=== PATIENT | female | born 1965 | race Native Hawaiian/Other Pacific Islander ===

== ENCOUNTER → 2017-03-30 | Outpatient (CLI) | payer OTHER ==
--- NOTE | 2017-04-03 10:22 | MM ---
Reason for exam: screening (asymptomatic). Physical Findings: A clinical breast exam by your physician is recommended on an annual basis and results should be correlated with mammographic findings. MG Screening Mammo w CAD Bilateral CC and MLO view(s) were taken. No prior studies available for comparison. The breast tissue is heterogeneously dense. This may lower the sensitivity of mammography. Finding: There are indeterminate calcifications in the upper quadrant, central position of the right breast. ASSESSMENT: Incomplete: need additional imaging evaluation, BI-RAD 0 RECOMMENDATION: Special view mammogram of the right breast. [facility] will attempt to contact patient to return for supplemental views.
== END ==
LOC: RADMAMWWP 15:18
PROVIDERS: ATTEND Internal Medicine
DX: Z12.31 Encounter for screening mammogram for malignant neoplasm of breast (principal)

== ENCOUNTER → 2017-04-07 | Outpatient (CLI) | payer OTHER ==
--- NOTE | 2017-04-07 10:35 | MM ---
Reason for exam: additional evaluation requested from abnormal screening. Last mammogram was performed less than 1 month ago. Physical Findings: Nurse did not find any significant physical abnormalities on exam. MG Work Up Mamm w CAD RT CC and MLO view(s) were taken of the right breast. Prior study comparison: March 30, 2017, bilateral MG screening mammo w CAD. Finding: There are typically benign round and heterogeneous, grouped/clustered calcifications in the upper quadrant, middle position of the right breast. These results were verbally communicated with the patient and result sheet given to the patient on 04/07/17. ASSESSMENT: Probably benign, BI-RAD 3 RECOMMENDATION: Follow-up diagnostic mammogram of the right breast in 6 months.
== END | disposition home or self-care (01) ==
LOC: RADMAMWWP 09:44
PROVIDERS: ATTEND Internal Medicine
DX: R92.8 Other abnormal and inconclusive findings on diagnostic imaging of breast (principal); R92.2 Inconclusive mammogram

== ENCOUNTER → 2019-05-28 | Outpatient (CLI) | payer OTHER ==
--- NOTE | 2019-05-28 08:57 | US ---
EXAMINATION TYPE: US pelvis complete transvag DATE OF EXAM: 05/28/2019 COMPARISON: NONE CLINICAL HISTORY: R10.2 PELVIC PAIN. Spotting Partial hysterectomy. TECHNIQUE: Transvaginal (TV) and Transabdominal (TA) . Transabdominal sonographic images of the pel vis were acquired. Transvaginal sonographic images were medically necessary to better assess the fol lowing anatomy: Ovaries EXAM MEASUREMENTS: Uterus: Surgically absent cm Endometrial Stripe: Surgically absent cm 1. Uterus: Surgically absent 2. Endometrium: Surgically absent 3. Right Ovary: Obscured by overlying bowel gas 4. Left Ovary: Obscured by overlying bowel gas 5. Bilateral Adnexa: wnl 6. Posterior cul-de-sac: wnl IMPRESSION: Uterus appears surgically absent with bowel now located in the surgical uterine bed. Ovar ies are obscured by bowel.
== END | disposition home or self-care (01) ==
LOC: RADUSWWP 07:03 → MERGE 07:03
PROVIDERS: ATTEND Obstetrics & Gynecology
DX: R14.3 Flatulence (principal); Z90.710 Acquired absence of both cervix and uterus
CPT/HCPCS: 76830; 76856

== ENCOUNTER 2019-06-10 13:01 | Emergency (ER) | payer OTHER ==
[2019-06-10 13:42] VITALS: TEMP 97.4
[2019-06-10] MEDS ORDERED: SODIUM CHLORIDE 0.9% 1,000 ML IV STA (15:55)
[2019-06-10] MEDS ORDERED: ONDANSETRON 4 MG/2 ML VIAL IVP STA (15:55)
[2019-06-10 16:32] LABS: Basophils % (A) 0 %; Eosinophils # (A) 0.1 k/uL (0-0.7); Eosinophils % (A) 2 %; HCT 42.6 % (34.0-46.0); HGB 13.6 gm/dL (11.4-16.0); Lymphocytes # (A) 1.8 k/uL (1.0-4.8); Lymphocytes % (A) 25 %; MCH 27.4 pg (25.0-35.0); MCV 85.6 fL (80.0-100.0); Mean Platelet Volume 7.5; Monocytes # (A) 0.5 k/uL (0-1.0); Monocytes % (A) 7 %; Neutrophils # (A) 4.5 k/uL (1.3-7.7); Neutrophils % (A) 64 %; Platelet Count 293 k/uL (150-450); RBC 4.97 m/uL (3.80-5.40); RDW 13.7 % (11.5-15.5)
[2019-06-10 16:36] LABS: Appearance,Urine Clear (Clear); Bilirubin,Urine Negative (Negative); Blood,Urine Negative (Negative); Color,Urine Yellow; Glucose,Urine (UA) Negative (Negative); Ketones,Urine 1+ (Negative); Leukocyte Esterase,Urine Negative (Negative); Nitrite,Urine Negative (Negative); PH, Urine 5.5 (5.0-8.0); Protein,Urine Trace (Negative); Specific Gravity,Urine 1.022 (1.001-1.035); Urobilinogen,Urine <2.0 mg/dL (<2.0)
--- NOTE | 2019-06-10 16:42 | XR ---
EXAMINATION TYPE: XR chest 2V DATE OF EXAM: 06/10/2019 COMPARISON: 09/04/2018 HISTORY: Chest pain TECHNIQUE: Frontal and lateral views of the chest are obtained. FINDINGS: Heart is normal. Lungs are clear of infiltrate. There is no pleural effusion. There are no hilar masses. Bony thorax is intact. IMPRESSION: No active cardiopulmonary disease. There is improved inspiration compared to last exam.
--- NOTE | 2019-06-10 16:43 | XR ---
EXAMINATION TYPE: XR KUB DATE OF EXAM: 06/10/2019 COMPARISON: NONE HISTORY: Abdominal pain TECHNIQUE: 2 views upright FINDINGS: There is no sign of intestinal obstruction or pneumoperitoneum. Fecal pattern is normal. Teresa ng bases are clear. There are no pathologic calcifications over the kidneys. IMPRESSION: Nonacute abdomen.
[2019-06-10 16:45] LABS: ALT 37 U/L (9-52); AST 25 U/L (14-36); African American GFR (CKD) >90 (>60 ml/min/1.73 sqM); Albumin 4.3 g/dL (3.5-5.0); Alkaline Phosphatase 109 U/L (38-126); Amylase 39 U/L (30-110); Anion Gap 11 mmol/L; Blood Urea Nitrogen 11 mg/dL (7-17); Calcium 9.6 mg/dL (8.4-10.2); Carbon Dioxide 24 mmol/L (22-30); Chloride 104 mmol/L (98-107); Glucose 88 mg/dL (74-99); Potassium 3.9 mmol/L (3.5-5.1); Sodium 139 mmol/L (137-145); Total Bilirubin 0.6 mg/dL (0.2-1.3); Total Protein 7.4 g/dL (6.3-8.2)
--- NOTE | 2019-06-10 17:11 | ED ---
Chest Pain HPI - General Chief Complaint: Chest Pain Stated Complaint: bug bites Time Seen by Provider: 06/10/19 15:23 Source: patient Mode of arrival: ambulatory Limitations: no limitations - History of Present Illness Initial Comments: Patient is a 53-year-old female presenting to emergency Department with multiple chief complaints. Patient reports approximately 1 week ago she developed a sore throat that has not resolved. Patient denies drooling but does report odontophagia. Patient reports angioedema that is worse in the morning . Patient also reports a macular rash on her left upper extremity and trunk that has appeared over the same period. Patient reports the rash is itchy. Patient denied any chest pain when arriving to the emergency department but states that she has developed mild chest pain when talking to the nurse. Patient denies any chest pain at the moment. Patient denies shortness of breath, chest tightness or chest palpitations. Patient is also complaining of generalized suprapubic tenderness that has developed over the same period. Patient denies hematuria or urgency but does report increased frequency. Patient also reports obstructive urinary symptoms. Patient also reports bilateral flank pain. Patient denies vaginal bleeding or discharge. Patient does report diarrhea. Patient also reports bilateral lower extremity edema over the past 2 weeks. Patient also reports bilateral lower extremity numbness and pain. Patient reports a history of diabetes as well as family history of diabetes. Patient is not currently treated for diabetes. Patient denies any cough or headaches. - Related Data Previous Rx's Medication Instructions Recorded Furosemide [Lasix] 20 mg PO DAILY #3 tab 06/10/19 Allergies Allergy/AdvReac Type Severity Reaction Status Date / Time hydromorphone Allergy Rash/Hives Verified 06/10/19 16:15 NSAIDS (Non-Steroidal Allergy Rash/Hives Verified 06/10/19 16:15 Anti-Inflamma Penicillins Allergy Unknown Verified 06/10/19 16:15 Review of Systems ROS Statement: Those systems with pertinent positive or pertinent negative responses have been documented in the HPI. ROS Other: All systems not noted in ROS Statement are negative. EKG Findings - EKG Comments: EKG Findings:: Normal sinus rhythm. Ventricular rate 76, W[place] interval 170, QRS duration 88, QT/QTc 408/459, P-R-T interval 38 51 65 Past Medical History Past Medical History: Asthma Additional Past Medical History / Comment(s): hernia, prolapsed uterus, kidney stones History of Any Multi-Drug Resistant Organisms: None Reported Past Surgical History: Cholecystectomy Additional Past Surgical History / Comment(s): kidney stone removal Past Anesthesia/Blood Transfusion Reactions: Motion Sickness, Postoperative Nausea & Vomiting (PONV) Past Psychological History: No Psychological Hx Reported Smoking Status: Never smoker Past Alcohol Use History: None Reported Past Drug Use History: None Reported - Past Family History Mother Family Medical History: Asthma, Diabetes Mellitus Father Family Medical History: No Reported History, Unable to Obtain General Exam Limitations: no limitations General appearance: alert, in no apparent distress Head exam: Present: atraumatic, normocephalic, normal inspection Eye exam: Present: normal appearance, PERRL, EOMI. Absent: conjunctival injection, periorbital tenderness Pupils: Present: normal accommodation ENT exam: Present: normal exam, normal oropharynx (Uvula midline. No erythema enlarged tonsils or exudates .), mucous membranes moist, TM's normal bilaterally, normal external ear exam Neck exam: Present: normal inspection, full ROM, lymphadenopathy (submandibular) Respiratory exam: Present: normal lung sounds bilaterally. Absent: wheezes Cardiovascular Exam: Present: regular rate, normal rhythm, normal heart sounds GI/Abdominal exam: Present: soft, tenderness (Generalized suprapubic tenderness with palpation), normal bowel sounds, other (Negative McBurney point tenderness, negative Coombs's, negative obturator, negative Rovsing.). Absent: guarding, rebound Extremities exam: Present: normal inspection, full ROM, normal capillary refill, pedal edema (+1 bilateral nonpitting lower extremity edema. ), other ( +2 dorsalis pedis and posterior tibialis bilaterally) Back exam: Present: normal inspection, full ROM Neurological exam: Present: alert, oriented X3 Psychiatric exam: Present: normal affect, normal mood Skin exam: Present: warm, intact, normal color, rash (Macular rash measuring approximately 2 cm diameter on left upper extremity and trunk.) Course Vital Signs 06/10/19 06/10/19 13:36 18:57 Temperature 97.4 F L Pulse Rate 90 88 Respiratory 18 15 Rate Blood Pressure 132/91 136/90 O2 Sat by Pulse 97 98 Oximetry Chest Pain [facility] Patient is a 53-year-old female presenting to emergency Department with multiple chief complaints. Chest x-ray unremarkable. CT abdomen and pelvis is indicative of cardiomegaly. Patient does not take any medication for the cardiac megaly. I suspect the patient to have developed the bilateral lower extremity edema due to the cardiomegaly. Patient given 40 mg of Lasix and will be discharged with a three-day course of Lasix. I suspect the bilateral lower cavity pain and numbness is due to diabetic neuropathy secondary to a nontreated diabetes. CBC, CMP and UA are unremarkable. I suspect the sore throat to be caused by a viral etiology and do not see a need for use of antibiotics at this time. On reevaluation patient denies any chest pain or shortness of breath. EKG shows sinus rhythm. The urine is completely clean. Urinary tract infections typically doesn't present with bilateral flank pain. Patient was also recently treated for a UTI so at this time not going to prescribe an antibiotic. I suspect the rash to be caused by a localized ALLERGIC reaction And will be treated with a steroid. I also suspect the angioedema to be a result of an ALLERGIC reaction which is going to be covered with the steroid. Patient advised to follow-up with cardiology and urology regarding her symptoms. Patient denied pelvic examination. Patient's vital stable. Strict return parameters were thoroughly discussed patient was understanding and agreeable. Case discussed physician. Disposition Clinical Impression: Rash, Suprapubic pain, Angioedema Disposition: HOME SELF-CARE Condition: Stable Instructions (If sedation given, give patient instructions): Abdominal Pain (ED) Additional Instructions: Please follow up with cardiology and urology. Please follow up with primary care. Please return to emergency department if symptoms worsen. Please see prescribe medication as directed. Prescriptions: Furosemide [Lasix] 20 mg PO DAILY #3 tab Is patient prescribed a controlled substance at d/c from ED?: No Referrals: Amanda Montero MD [STAFF PHYSICIAN] - 1-2 days Marzena Mclaughlin MD [Primary Care Provider] - 1-2 days Ceasr Salvador MD [STAFF PHYSICIAN] - 1-2 days Time of Disposition: 18:51
[2019-06-10] MEDS ORDERED: DEXAMETHASONE SOD PHOSPHATE 10 MG/ML 1 ML VIAL IM STA (17:55)
[2019-06-10] MEDS ORDERED: DEXAMETHASONE SOD PHOSPHATE 10 MG/ML 1 ML VIAL IV STA (18:04)
--- NOTE | 2019-06-10 18:39 | CT ---
EXAMINATION TYPE: CT abdomen pelvis w con DATE OF EXAM: 06/10/2019 COMPARISON: 01/19/2013 HISTORY: Pelvic and Left sided flank pain CT DLP: 1418.3 mGycm Automated exposure control for dose reduction was used. TECHNIQUE: Helical acquisition of images was performed from the lung bases through the pelvis. CONTRAST: Performed without Oral Contrast and with IV Contrast, patient injected with 100 mL of Isovue 300. FINDINGS: Lung bases are clear. There is no pleural effusion. Heart is enlarged. There is no pericardial effusi on. There are clips from cholecystectomy. Liver appears normal. Bile ducts are not dilated. Spleen ap pears normal. There is no pancreatic mass. Stomach appears normal. There is no adrenal mass. Kidneys show satisfactory contrast opacification. There is no hydronephrosi s. Ureters are not dilated. Appendix appears normal. There is no retroperitoneal adenopathy. Bladder distends smoothly. There is no inguinal hernia. There is no evidence of a pelvic mass. There is no free fluid in the pel vis. There is hysterectomy. There is no mesenteric edema. There is no ascites or free air. Lumbar spi ne is intact. Bony pelvis appears intact. IMPRESSION: CARDIOMEGALY. NO RENAL MASS OR OBSTRUCTION. THERE IS CLEARING OF CALCULUS IN THE LEFT RENAL PELVIS CO MPARED TO OLD EXAM. NORMAL APPENDIX. I do not see a cause for left side pain.
[2019-06-10] MEDS ORDERED: FUROSEMIDE 10 MG/ML 4 ML VIAL IV STA (18:48)
[2019-06-10 19:02] VITALS: BP 136/90; PULSE 88; RESP 15
== END 2019-06-10 18:57 | disposition home or self-care (01) ==
LOC: EC 13:01
DX: T78.3XXA Angioneurotic edema, initial encounter (principal); R10.31 Right lower quadrant pain; R10.32 Left lower quadrant pain; R19.7 Diarrhea, unspecified; J02.9 Acute pharyngitis, unspecified; Z90.49 Acquired absence of other specified parts of digestive tract; Z87.442 Personal history of urinary calculi; Z53.8 Procedure and treatment not carried out for other reasons; Z88.5 Allergy status to narcotic agent; Z88.6 Allergy status to analgesic agent; Z88.0 Allergy status to penicillin
CPT/HCPCS: 36415; 93005; 80053; 82150; 83690; 85025; 81003; 81025; 87086; 71046; 74018; 74177; 99285; 96374; 96375 ×2; 96361 ×2; J1100; J1940; J2405; Q9967

== ENCOUNTER 2019-06-12 13:36 | Emergency (ER) | payer OTHER ==
[2019-06-12 13:41] VITALS: BP 120/86; PULSE 83; RESP 18; TEMP 97.9
[2019-06-12] MEDS ORDERED: methylPREDNISolone SOD SUCCI 125 MG/2 ML VIAL IV STA (14:08)
[2019-06-12] MEDS ORDERED: diphenhydrAMINE 50 MG/ML 1 ML VIAL IVP STA (14:08)
[2019-06-12] MEDS ORDERED: FAMOTIDINE 20 MG/2 ML VIAL IV STA (14:08)
--- NOTE | 2019-06-12 14:27 | ED ---
Allergic Reaction HPI - General Chief complaint: Allergic Reaction Stated complaint: allergic reaction Time Seen by Provider: 06/12/19 13:50 Source: patient, RN notes reviewed Mode of arrival: ambulatory Limitations: no limitations - History of Present Illness Initial Comments: 53-year-old female presents emergency Department chief complaint of hives. Patient states that she was here the other day which she'll blood work for was not sent home with any medications. Patient states her. She states that they have worsened. Patient states she is large areas of swelling primary torso and legs. Patient denies taking any recent Benadryl patient has ALLERGY to drugs but denies any new medications soaps lotions detergents. She believes are related to insect bites at her apartment. - Related Data Previous Rx's Medication Instructions Recorded Cephalexin [Keflex] 500 mg PO Q6HR #28 cap 06/12/19 diphenhydrAMINE [Benadryl] 50 mg PO QID PRN #20 capsule 06/12/19 predniSONE 50 mg PO DAILY #5 tab 06/12/19 Allergies Allergy/AdvReac Type Severity Reaction Status Date / Time hydromorphone Allergy Rash/Hives Verified 06/12/19 13:53 NSAIDS (Non-Steroidal Allergy Rash/Hives Verified 06/12/19 13:53 Anti-Inflamma Penicillins Allergy Unknown Verified 06/12/19 13:53 Review of Systems ROS Statement: Those systems with pertinent positive or pertinent negative responses have been documented in the HPI. ROS Other: All systems not noted in ROS Statement are negative. Past Medical History Past Medical History: Asthma Additional Past Medical History / Comment(s): hernia, prolapsed uterus, kidney stones History of Any Multi-Drug Resistant Organisms: None Reported Past Surgical History: Cholecystectomy Additional Past Surgical History / Comment(s): kidney stone removal Past Anesthesia/Blood Transfusion Reactions: Motion Sickness, Postoperative Nausea & Vomiting (PONV) Past Psychological History: No Psychological Hx Reported Smoking Status: Never smoker Past Alcohol Use History: None Reported Past Drug Use History: None Reported - Past Family History Mother Family Medical History: Asthma, Diabetes Mellitus Father Family Medical History: No Reported History, Unable to Obtain General Exam Limitations: no limitations General appearance: alert, in no apparent distress Head exam: Present: atraumatic, normocephalic, normal inspection Eye exam: Present: normal appearance, PERRL, EOMI. Absent: scleral icterus, conjunctival injection, periorbital swelling ENT exam: Present: normal exam, mucous membranes moist Neck exam: Present: normal inspection, full ROM. Absent: tenderness, meningismus, lymphadenopathy Respiratory exam: Present: normal lung sounds bilaterally. Absent: respiratory distress, wheezes, rales, rhonchi, stridor Cardiovascular Exam: Present: regular rate, normal rhythm, normal heart sounds. Absent: systolic murmur, diastolic murmur, rubs, gallop, clicks GI/Abdominal exam: Present: soft, normal bowel sounds. Absent: distended, tenderness, guarding, rebound, rigid Neurological exam: Present: alert, oriented X3, CN II-XII intact Skin exam: Present: warm, dry, intact, normal color, rash, urticaria Course Vital Signs 06/12/19 13:38 Temperature 97.9 F Pulse Rate 83 Respiratory 18 Rate Blood Pressure 120/86 O2 Sat by Pulse 96 Oximetry Medical Decision Making - Medical Decision Making 53-year-old female presented for rash. Patient is resting to be consistent with urticaria she did have improvement with Solu-Medrol and Benadryl. She also had an abscess infection which she'll be treated for antibiotics. Patient will be discharged prednisone and Benadryl and Keflex. Return parameters were discussed. Disposition Clinical Impression: Urticaria, Abscess of chin Disposition: HOME SELF-CARE Condition: Stable Instructions (If sedation given, give patient instructions): Urticaria (ED) Additional Instructions: Please return to the Emergency Department if symptoms worsen or any other concerns. Prescriptions: diphenhydrAMINE [Benadryl] 50 mg PO QID PRN #20 capsule PRN Reason: Itching Cephalexin [Keflex] 500 mg PO Q6HR #28 cap predniSONE 50 mg PO DAILY #5 tab Is patient prescribed a controlled substance at d/c from ED?: No Referrals: Marzena Mclaughlin MD [Primary Care Provider] - 1-2 days Time of Disposition: 15:16
== END 2019-06-12 15:46 | disposition home or self-care (01) ==
LOC: EC 13:36
DX: L50.9 Urticaria, unspecified (principal); L02.01 Cutaneous abscess of face; Z88.0 Allergy status to penicillin; Z88.5 Allergy status to narcotic agent; Z88.6 Allergy status to analgesic agent
CPT/HCPCS: 99283; 96374; 96375 ×2; J1200; J2930

== ENCOUNTER 2019-06-24 04:31 | Observation (INO) | payer OTHER ==
[2019-06-24] MEDS ORDERED: ONDANSETRON 4 MG/2 ML VIAL IVP STA (04:57)
[2019-06-24] MEDS ORDERED: SODIUM CHLORIDE 0.9% 2,000 ML IV STA (04:57)
--- NOTE | 2019-06-24 04:57 | ED ---
Nausea/Vomiting/Diarrhea HPI - General Chief complaint: Nausea/Vomiting/Diarrhea Stated complaint: abd pain Time Seen by Provider: 06/24/19 04:45 Source: patient Mode of arrival: ambulatory Limitations: no limitations - History of Present Illness Initial comments: Vandana is a 53-year-old female who presents to the emergency department today for evaluation of abdominal pain. Patient reports that until approximately 2 weeks ago she had been profoundly constipated and had only one bowel movement a matter of 2 weeks. She reports that that resolved and since that time she's experienced multiple episodes of nonbloody diarrhea, and nonbilious vomiting. She reports that for the past week to 10 days any time she eats she will need to have a bowel movement within 5-10 minutes. Patient reports that his bowel movements have become greenish in color. Patient states that yesterday at latter-day she ate rice and ribs and within 5 minutes had have a bowel movement. He states that with this she's been having some significant abdominal discomfort and cramping. She has been taking Tums with minimal relief, this evening she attempted to take Rolaids with no relief at which time she decided to come to the ER for further evaluation. Patient states that she has had multiple abdominal surgeries including umbilical hernia repair, open cholecystectomy, she denies any history of small bowel obstruction or any known surgical complications from her previous surgeries. - Related Data Previous Rx's Medication Instructions Recorded Cephalexin [Keflex] 500 mg PO Q6HR #28 cap 06/12/19 diphenhydrAMINE [Benadryl] 50 mg PO QID PRN #20 capsule 06/12/19 predniSONE 50 mg PO DAILY #5 tab 06/12/19 Allergies Allergy/AdvReac Type Severity Reaction Status Date / Time capsaicin [From Dolorac] Allergy Rapid Verified 06/24/19 04:41 Heart Rate hydromorphone Allergy Rash/Hives Verified 06/24/19 04:39 NSAIDS (Non-Steroidal Allergy Rash/Hives Verified 06/24/19 04:39 Anti-Inflamma Penicillins Allergy Unknown Verified 06/24/19 04:39 Review of Systems ROS Statement: Those systems with pertinent positive or pertinent negative responses have been documented in the HPI. ROS Other: All systems not noted in ROS Statement are negative. Past Medical History Past Medical History: Asthma Additional Past Medical History / Comment(s): hernia, prolapsed uterus, kidney stones History of Any Multi-Drug Resistant Organisms: None Reported Past Surgical History: Cholecystectomy Additional Past Surgical History / Comment(s): kidney stone removal Past Anesthesia/Blood Transfusion Reactions: Motion Sickness, Postoperative Nausea & Vomiting (PONV) Past Psychological History: No Psychological Hx Reported Smoking Status: Never smoker Past Alcohol Use History: None Reported Past Drug Use History: None Reported - Past Family History Mother Family Medical History: Asthma, Diabetes Mellitus Father Family Medical History: No Reported History, Unable to Obtain General Exam - General Exam Comments Initial Comments: Physical Exam GENERAL: Patient is well-developed and well-nourished. Patient is nontoxic and well- hydrated and is in no distress. HENT: Normocephalic, Atraumatic. EYES: PERRL, EOMI PULMONARY: Unlabored respirations. No audible rales rhonchi or wheezing was noted. CARDIOVASCULAR: There is a regular rate and rhythm without any murmurs gallops or rubs. ABDOMEN: Soft and nontender with normal bowel sounds. SKIN: Skin is clear with no lesions or rashes and otherwise unremarkable. : Deferred NEUROLOGIC: Patient is alert and oriented x3. Moving all extremities spontaneously MUSCULOSKELETAL: Normal extremities with adequate strength and full range of motion. No lower extremity swelling or edema. No calf tenderness. PSYCHIATRIC: Normal psychiatric evaluation. Limitations: no limitations Course Vital Signs 06/24/19 06/24/19 04:37 06:33 Temperature 97.8 F 97.9 F Pulse Rate 85 88 Respiratory 18 16 Rate Blood Pressure 133/89 131/79 O2 Sat by Pulse 98 99 Oximetry Medical Decision Making - Medical Decision Making The patient was seen and evaluated, history is obtained from the patient This is a previously healthy 53-year-old female presenting with these abdominal discomfort and diarrhea Labs ordered with mild leukocytosis X-ray is nonspecific however given the patient's symptoms and a computed tomography scan was ordered which revealed inflammation of the terminal ileum is as well as possible sigmoid colitis Rocephin and Flagyl ordered Due to the profuse diarrhea patient actually had an episode of bowel incontinence here in the emergency department. I'm patient comfortable being discharged home and will be admitted to the hospital for IV antibiotics fluid resuscitation and monitoring. - Lab Data Result diagrams: 06/24/19 05:11 06/24/19 05:11 Lab Results 06/24/19 06/24/19 06/24/19 Range/Units 05:11 05:11 05:20 WBC 10.8 H (3.8-10.6) k/uL RBC 4.95 (3.80-5.40) m/uL Hgb 14.0 (11.4-16.0) gm/dL Hct 42.8 (34.0-46.0) % MCV 86.4 (80.0-100.0) fL MCH 28.3 (25.0-35.0) pg MCHC 32.8 (31.0-37.0) g/dL RDW 16.6 H (11.5-15.5) % Plt Count 284 (150-450) k/uL Neutrophils % 68 % Lymphocytes % 23 % Monocytes % 5 % Eosinophils % 2 % Basophils % 1 % Neutrophils # 7.4 (1.3-7.7) k/uL Lymphocytes # 2.4 (1.0-4.8) k/uL Monocytes # 0.6 (0-1.0) k/uL Eosinophils # 0.2 (0-0.7) k/uL Basophils # 0.1 (0-0.2) k/uL Anisocytosis Slight Sodium 138 (137-145) mmol/L Potassium 3.7 (3.5-5.1) mmol/L Chloride 106 (98-107) mmol/L Carbon Dioxide 24 (22-30) mmol/L Anion Gap 8 mmol/L BUN 14 (7-17) mg/dL Creatinine 0.55 (0.52-1.04) mg/dL Est GFR (CKD-EPI)AfAm >90 (>60 ml/min/1.73 sqM) Est GFR (CKD-EPI)NonAf >90 (>60 ml/min/1.73 sqM) Glucose 113 H (74-99) mg/dL Calcium 9.0 (8.4-10.2) mg/dL Total Bilirubin 0.3 (0.2-1.3) mg/dL AST 23 (14-36) U/L ALT 33 (9-52) U/L Alkaline Phosphatase 94 (38-126) U/L Total Protein 6.9 (6.3-8.2) g/dL Albumin 4.0 (3.5-5.0) g/dL Lipase 112 (23-300) U/L Urine Color Light Yellow Urine Appearance Clear (Clear) Urine pH 6.0 (5.0-8.0) Ur Specific [place] 1.010 (1.001-1.035) Urine Protein Negative (Negative) Urine Glucose (UA) Negative (Negative) Urine Ketones Negative (Negative) Urine Blood Negative (Negative) Urine Nitrite Negative (Negative) Urine Bilirubin Negative (Negative) Urine Urobilinogen <2.0 (<2.0) mg/dL Ur Leukocyte Esterase Negative (Negative) Disposition Clinical Impression: Colitis Disposition: ADMITTED IP TO THIS HOSP Condition: Stable Referrals: Marzena Mclaughlin MD [Primary Care Provider] - 1-2 days
[2019-06-24 05:20] LABS: Anisocytosis Slight; Basophils # (A) 0.1 k/uL (0-0.2); Basophils % (A) 1 %; Eosinophils # (A) 0.2 k/uL (0-0.7); Eosinophils % (A) 2 %; HCT 42.8 % (34.0-46.0); Lymphocytes # (A) 2.4 k/uL (1.0-4.8); Lymphocytes % (A) 23 %; MCH 28.3 pg (25.0-35.0); MCHC 32.8 g/dL (31.0-37.0); MCV 86.4 fL (80.0-100.0); Mean Platelet Volume 7.4; Monocytes # (A) 0.6 k/uL (0-1.0); Monocytes % (A) 5 %; Neutrophils # (A) 7.4 k/uL (1.3-7.7); Neutrophils % (A) 68 %; Platelet Count 284 k/uL (150-450); RBC 4.95 m/uL (3.80-5.40); RDW 16.6 % (11.5-15.5); WBC 10.8 k/uL (3.8-10.6)
--- NOTE | 2019-06-24 05:38 | XR ---
EXAM: XR Abdomen, 1 View CLINICAL HISTORY: ITS.REASON XR Reason: pain TECHNIQUE: Frontal supine view of the abdomen/pelvis. COMPARISON: 06/10/19 IMPRESSION: No bowel obstruction. No free air. Cholecystectomy clips.
[2019-06-24 05:40] LABS: ALT 33 U/L (9-52); AST 23 U/L (14-36); African American GFR (CKD) >90 (>60 ml/min/1.73 sqM); Alkaline Phosphatase 94 U/L (38-126); Anion Gap 8 mmol/L; Blood Urea Nitrogen 14 mg/dL (7-17); Carbon Dioxide 24 mmol/L (22-30); Chloride 106 mmol/L (98-107); Glucose 113 mg/dL (74-99); Non-African American GFR(CKD) >90 (>60 ml/min/1.73 sqM); Potassium 3.7 mmol/L (3.5-5.1); Sodium 138 mmol/L (137-145); Total Bilirubin 0.3 mg/dL (0.2-1.3); Total Protein 6.9 g/dL (6.3-8.2)
[2019-06-24 06:04] LABS: Appearance,Urine Clear (Clear); Bilirubin,Urine Negative (Negative); Blood,Urine Negative (Negative); Color,Urine Light Yellow; Glucose,Urine (UA) Negative (Negative); Ketones,Urine Negative (Negative); Leukocyte Esterase,Urine Negative (Negative); Nitrite,Urine Negative (Negative); Protein,Urine Negative (Negative); Urobilinogen,Urine <2.0 mg/dL (<2.0)
--- NOTE | 2019-06-24 06:41 | CT ---
EXAMINATION TYPE: CT abdomen pelvis w con DATE OF EXAM: 06/24/2019 HISTORY: abd pain per order. Nausea and diarrhea with history of hernia. CT DLP: 1627mGycm Automated Exposure Control for Dose Reduction was Utilized. CONTRAST: CT scan of the abdomen and pelvis is performed without oral but with IV Contrast, patient injected wi th 100 mL of Isovue 300. COMPARISON: CT abdomen and pelvis from 2 weeks earlier. FINDINGS: LUNG BASES: Stable tiny pericardial effusion anterior inferior aspect. LIVER/GB: Cholecystectomy clips are redemonstrated. PANCREAS: No significant abnormality is seen. SPLEEN: No significant abnormality is seen. ADRENALS: No significant abnormality is seen. KIDNEYS: No significant abnormality is seen. BOWEL: Suboptimal evaluation of bowel without enteric contrast. No suspicious small or large bowel di latation. Mild wall thickening involving sigmoid colon is present. There is additional moderate wall thickening with mesenteric edema involving distal ileal loop in the right pelvis on current study. UTERUS/ADNEXA: Uterus is small size and lobulated axial image 81 unchanged in appearance from prior. LYMPH NODES: No greater than 1cm abdominal or pelvic lymph nodes are appreciated. OSSEOUS STRUCTURES: No significant abnormality is seen. OTHER: No significant additional abnormality is seen. IMPRESSION: Suboptimal study but convincing evidence for new uncomplicated acute enteritis involving distal ileal loop in the right pelvis. Cannot exclude additional mild colitis involving portions of t he sigmoid colon. Differential includes infectious and inflammatory etiologies. Correlate clinically.
[2019-06-24] MEDS ORDERED: NALOXONE 0.4 MG/ML 1 ML VIAL IV PRN (07:33)
[2019-06-24] MEDS ORDERED: metroNIDAZOLE-NS PMX 500 MG in SALINE 1 100ML.BAG IVPB STA (07:33)
[2019-06-24] MEDS ORDERED: cefTRIAXone IN SWFI 1,000 MG/10 ML SYRINGE IVP STA (07:33)
[2019-06-24] MEDS ORDERED: ONDANSETRON 4 MG/2 ML VIAL IVP PRN (07:33)
[2019-06-24] MEDS: SODIUM CHLORIDE 0.9% 1,000 ML IV SCH ×2 (07:59→08:57)
[2019-06-24] MEDS ORDERED: PNEUMOCOCCAL VACC-PNEUMOVAX 23 25 MCG/0.5 ML VIAL IM ONE (10:24)
[2019-06-24] MEDS ORDERED: ALPRAZolam 0.25 MG TAB PO PRN (13:05)
[2019-06-24] MEDS: PANTOPRAZOLE 40 MG/10 ML VIAL IVP SCH ×2 (13:33→20:01)
[2019-06-24] MEDS: HEPARIN SODIUM,PORCINE 5,000 UNIT/ML 1 ML VIAL SQ SCH ×2 (13:36→20:01)
[2019-06-24] MEDS ORDERED: LEVOFLOXACIN 500MG-D5W PMX 500 MG in DEXTROSE/WATER 1 100ML.BAG IVPB SCH (14:00)
--- NOTE | 2019-06-24 14:01 | HP ---
HISTORY AND PHYSICAL DATE OF SERVICE: 06/24/2019 CHIEF COMPLAINT: Nausea, vomiting, diarrhea. HISTORY OF PRESENT ILLNESS: This is a 53-year-old woman with a past medical history of multiple medical problems, including asthma, history of bronchitis, history of nephrolithiasis, history of DJD, cholecystomy being followed by Dr. Marzena Mclaughlin in the outpatient setting, is complaining of initially constipation, subsequently patient had multiple episodes of diarrhea for the last 2 weeks. The patient apparently had a spider bite also a week ago on the left flank, which is healing at this time. Because of increased difficulty, this patient came to [facility], admitted for further evaluation and treatment. The patient has abdominal distention also. The patient had heightened gastrocolic reflex as well. The CT scan showed enteritis, patient improved. There is no history of recent travel, no history of headache, loss of consciousness, seizures at this time. PAST MEDICAL HISTORY: History of asthma, bronchitis, nephrolithiasis, cholecystectomy, tubal ligation, motion sickness. MEDICATIONS: Prior to admission include home medications are multivitamins. ALLERGIES: CAPSAICIN, HYDROMORPHONE, NSAIDS, PENICILLIN. FAMILY HISTORY: History of asthma, diabetes in the family. SOCIAL HISTORY: No history of smoking. No history of alcohol intake. REVIEW OF SYSTEMS: ENT: No diminished vision. CARDIOVASCULAR: No angina or palpitations. RESPIRATORY: As mentioned earlier. GI: As mentioned earlier. : Negative. NERVOUS SYSTEM: No numbness or weakness. IMMUNOLOGY/ALLERGY: No asthma or hayfever. MUSCULOSKELETAL: As mentioned earlier. HEMATOLOGY/ONCOLOGY: No history of anemia. ENDOCRINE: No history of diabetes or hypothyroidism. CONSTITUTIONAL: As mentioned earlier. DERMATOLOGY: Negative. PSYCHIATRY: As mentioned earlier. PHYSICAL EXAMINATION: Alert and oriented x3, pulse is 82, blood pressure 130/80, respiration 17, temperature 98.2, pulse ox 98% on room air. HEENT: Conjunctivae normal. NECK: No jugular venous distension. CARDIOVASCULAR: S1, S2, muffled. RESPIRATORY: Breath sounds diminished at the bases, a few rhonchi, no crackles. ABDOMEN: Soft. Mild diffuse distention. Mild diffuse discomfort on palpation. No guarding. No rigidity. No mass palpable. LEGS: No edema, no swelling. NERVOUS SYSTEM: Higher functions as munitioned earlier, moves all 4 limbs. No focal motor or sensory deficits. LYMPHATICS: No lymph node enlargement. SKIN: No ulcers, rashes, bleeding. JOINTS: No active deforming arthropathy. LAB STUDIES: WBC 10.2, hemoglobin 14, sodium 130, potassium 3.7. ASSESSMENT: 1. Abdominal pain and distention with diarrhea, possibly acute enteritis of unknown undetermined etiology. 2. Increased WBC. 3. History of asthma, bronchitis. 4. History of nephrolithiasis. 5. History of degenerative joint disease. 6. Cholecystectomy history. RECOMMENDATION AND DISCUSSION: In this 53-year-old woman who presented with multiple complex medical issues, will monitor the patient closely. Continue with the current management and symptomatic treatment. Otherwise, at this time I would recommend symptomatic treatment, stool testing, cultures or parasite treated empirically with antibiotics. Clear liquids. Guarded prognosis because of multiple complex medical issues. Further recommendations to follow. A copy of this will be forwarded to Dr. Marzena Mclaughlin who is the primary physician. MMODL / IJN: [id number] /
[2019-06-24] MEDS: metroNIDAZOLE-NS PMX 500 MG in SALINE 1 100ML.BAG IVPB SCH (15:13)
[2019-06-24] MEDS: ACETAMINOPHEN TAB 500 MG TAB PO PRN ×2 (15:16→19:53)
[2019-06-25] MEDS: SODIUM CHLORIDE 0.9% 1,000 ML IV SCH ×3 (00:07→23:28)
[2019-06-25] MEDS: metroNIDAZOLE-NS PMX 500 MG in SALINE 1 100ML.BAG IVPB SCH ×4 (01:34→23:28)
[2019-06-25] MEDS: PANTOPRAZOLE 40 MG/10 ML VIAL IVP SCH ×2 (08:02→21:07)
[2019-06-25] MEDS: MULTIVITAMINS, THERA 1 EACH TAB PO SCH (08:02)
[2019-06-25] MEDS: HEPARIN SODIUM,PORCINE 5,000 UNIT/ML 1 ML VIAL SQ SCH ×2 (08:02→21:07)
[2019-06-25 08:11] LABS: Basophils % (A) 0 %; Eosinophils # (A) 0.2 k/uL (0-0.7); Eosinophils % (A) 2 %; HCT 45.7 % (34.0-46.0); HGB 14.5 gm/dL (11.4-16.0); Lymphocytes # (A) 1.7 k/uL (1.0-4.8); Lymphocytes % (A) 24 %; MCH 27.8 pg (25.0-35.0); MCHC 31.8 g/dL (31.0-37.0); MCV 87.2 fL (80.0-100.0); Mean Platelet Volume 7.4; Monocytes # (A) 0.5 k/uL (0-1.0); Monocytes % (A) 7 %; Neutrophils # (A) 4.7 k/uL (1.3-7.7); Neutrophils % (A) 65 %; Platelet Count 301 k/uL (150-450); RBC 5.24 m/uL (3.80-5.40); WBC 7.1 k/uL (3.8-10.6)
[2019-06-25] MEDS: ACETAMINOPHEN TAB 500 MG TAB PO PRN ×2 (08:11→16:41)
[2019-06-25 08:22] LABS: African American GFR (CKD) >90 (>60 ml/min/1.73 sqM); Anion Gap 7 mmol/L; Blood Urea Nitrogen 7 mg/dL (7-17); Calcium 9.5 mg/dL (8.4-10.2); Carbon Dioxide 31 mmol/L (22-30); Chloride 105 mmol/L (98-107); Glucose 112 mg/dL (74-99); Non-African American GFR(CKD) >90 (>60 ml/min/1.73 sqM); Potassium 4.3 mmol/L (3.5-5.1); Sodium 143 mmol/L (137-145)
[2019-06-25] MEDS: LEVOFLOXACIN 250 MG TAB PO SCH (12:38)
--- NOTE | 2019-06-25 23:58 | PN ---
PROGRESS NOTE DATE OF SERVICE: 06/25/2019. This 53-year-old woman was admitted with abdominal pain, discomfort, possibly suspect enteritis. No chest pain. No palpitations. No fever. EXAM: Alert and oriented x3. Pulse is 95, blood pressure 127/80, respiration 18, temperature 98.4, pulse ox 98% on room air. HEENT: Conjunctivae normal. NECK: No jugular venous distention. CARDIOVASCULAR: S1, S2. RESPIRATORY: Breath sounds diminished in the bases. No rhonchi. No crackles. ABDOMEN is soft, nontender. No mass palpable. CENTRAL NERVOUS SYSTEM: No focal deficits. LEGS are no edema. No swelling. LABS: CBC within normal limits. Sodium 140, potassium 4.3. ASSESSMENT: 1. Abdominal pain/distention and diarrhea possibly acute enteritis, so far undetermined etiology. 2. Increased WBC. 3. History of asthma, bronchitis. 4. History of nephrolithiasis. 5. History of degenerative joint disease. 6. Cholecystectomy history. RECOMMENDATIONS AND DISCUSSION: Recommend to continue current medications, management and symptomatic treatment. Otherwise, at this time, I would also recommend Gastroenterology evaluation because of persistent symptoms. Prognosis guarded because of multiple complex medical issues. Further recommendations to follow. MMODL / IJN: [id number] /
[2019-06-26 08:17] LABS: Basophils % (A) 1 %; Eosinophils # (A) 0.2 k/uL (0-0.7); Eosinophils % (A) 3 %; HCT 41.7 % (34.0-46.0); HGB 13.5 gm/dL (11.4-16.0); Lymphocytes # (A) 0.9 k/uL (1.0-4.8); Lymphocytes % (A) 15 %; MCH 28.2 pg (25.0-35.0); MCHC 32.3 g/dL (31.0-37.0); MCV 87.2 fL (80.0-100.0); Mean Platelet Volume 7.3; Monocytes # (A) 0.3 k/uL (0-1.0); Monocytes % (A) 6 %; Neutrophils # (A) 4.4 k/uL (1.3-7.7); Neutrophils % (A) 75 %; Platelet Count 275 k/uL (150-450); RBC 4.78 m/uL (3.80-5.40); WBC 5.9 k/uL (3.8-10.6)
[2019-06-26 08:25] LABS: African American GFR (CKD) >90 (>60 ml/min/1.73 sqM); Anion Gap 7 mmol/L; Blood Urea Nitrogen 9 mg/dL (7-17); Calcium 9.5 mg/dL (8.4-10.2); Carbon Dioxide 29 mmol/L (22-30); Chloride 103 mmol/L (98-107); Glucose 111 mg/dL (74-99); Non-African American GFR(CKD) 89 (>60 ml/min/1.73 sqM); Potassium 4.3 mmol/L (3.5-5.1); Sodium 139 mmol/L (137-145)
[2019-06-26] MEDS: metroNIDAZOLE-NS PMX 500 MG in SALINE 1 100ML.BAG IVPB SCH ×2 (08:29→15:01)
[2019-06-26] MEDS: HEPARIN SODIUM,PORCINE 5,000 UNIT/ML 1 ML VIAL SQ SCH ×2 (09:07→20:19)
[2019-06-26] MEDS: MULTIVITAMINS, THERA 1 EACH TAB PO SCH (09:07)
[2019-06-26] MEDS: PANTOPRAZOLE 40 MG/10 ML VIAL IVP SCH ×2 (09:07→20:18)
[2019-06-26] MEDS ORDERED: BISACODYL 5 MG TABLET.DR PO STA (11:07)
[2019-06-26] MEDS: LEVOFLOXACIN 250 MG TAB PO SCH (12:22)
[2019-06-26] MEDS: SODIUM CHLORIDE 0.9% 1,000 ML IV SCH ×2 (12:58→13:02)
--- NOTE | 2019-06-26 16:28 | PN ---
PROGRESS NOTE DATE OF SERVICE: 06/26/2019 This 53-year-old woman who was admitted with abdominal symptoms had apparently diarrhea and constipation, also. Acute enteritis was considered. Dr. Mckeon saw the patient and recommended EGD and colonoscopy. No chest pain or palpitation. No fever. On exam, alert and oriented x3. Pulse 95, blood pressure 127/88, respiration 18, temperature 98.4, pulse ox 96% on room air. HEENT: Conjunctivae normal. NECK: No jugular venous distention. CARDIOVASCULAR SYSTEM: S1, S2 muffled. RESPIRATORY SYSTEM: Breath sounds diminished at the bases. No rhonchi. No crackles. ABDOMEN: Soft, obese, non-tender. No mass palpable. LEGS: No edema. No swelling. NERVOUS SYSTEM: No focal deficit. LABS: CBC within normal limits. Sodium 139, potassium 4.3. ASSESSMENT: 1. Abdominal pain, distention, diarrhea; possible acute enteritis; undetermined etiology; for workup. 2. Increased white count. 3. History of asthma, bronchitis. 4. History of nephrolithiasis. 5. History of degenerative joint disease. 6. History of cholecystectomy. RECOMMENDATIONS AND DISCUSSION: I recommend to continue current medications, continue with the monitoring, symptomatic treatment. Discussed with Dr. Mckeon, who will be performing EGD and colonoscopy tomorrow. Otherwise, continue to monitor. Continue the rest of the medications. Further recommendations to follow. MMODL / IJN: [id number] /
[2019-06-26] MEDS ORDERED: PEG 3350-NA SULF,BICARB,CL/KCL 4,000 ML BOTTLE PO ONE (17:00)
--- NOTE | 2019-06-26 22:21 | P.CONS ---
History of Present Illness - Reason for Consult Consult date: 06/26/19 Enteritis Requesting physician: Shari Boggs - Chief Complaint Diarrhea, abdominal pain - History of Present Illness 53-year-old female with a medical history significant for asthma and GERD who presented to the emergency department for evaluation of abdominal pain and shmuel rrhea. The patient reports that at baseline she is extremely constipated usually going over 3-4 days before having bowel movements. She reports using Ex-Lax as needed for bowel movements as well as magnesium in the past. She reports that initially she went 3 weeks without having a bowel movement. She then reports having 2 episodes of diarrhea prior to presentation and describes stool which was green and watery in color and then black in color and then yellow in color. No further bowel movements today. She does state she had a colonoscopy approximately 2-3 years ago and states that at that time she was treated with antibiotics. She also reports a history of gastritis found on EGD 3-4 years ago which she reports was treated with antibiotics. She does have a history of GERD and has been treated with Nexium and Prilosec in the past. Currently she is not on any medications and reports daily reflux. In addition she reports intermittent solid food dysphagia. Currently the patient is reporting abdominal pain described as both sharp and achy in the periumbilical region and the right lower abdomen. On presentation and computed tomography scan showed possible enteritis with some thickening in the distal ileal loop as well as some possible sigmoid colitis. WBC count on presentation 5.9, hemoglobin 13.5, platelet count 275,000, total bilirubin 0.3, alkaline phosphatase 94, AST 23 and ALT 33. Review of Systems REVIEW OF SYSTEMS: CONSTITUTIONAL: Denies any fevers, chills, weight change or fatigue. CARDIOVASCULAR: Denies any chest pain, palpitations high or low blood pressures RESPIRATORY: Denies any shortness of breath, hemoptysis or cough. GENITOURINARY: No dysuria or hematuria. MUSCULOSKELETAL: No weakness reported. SKIN: Denies any new rashes or lesions, jaundice or pallor. PSYCHIATRIC: Denies any depression or anxiety. NEUROLOGY: Denies headache, denies any new focal deficits. EARS/NOSE/THROAT: No recent hearing change, congestion, nasal discharge or sore throat. EYES: No pain in eyes, discharge or change in vision. GASTROINTESTINAL: As per HPI. Past Medical History Past Medical History: Asthma Additional Past Medical History / Comment(s): Bronchitis, kidney stones, bilateral knees "weak and swollen", pt states she retains fluid in her body and has had increased weakness and dizziness the past few months. History of Any Multi-Drug Resistant Organisms: None Reported Past Surgical History: Cholecystectomy, Tubal Ligation Additional Past Surgical History / Comment(s): Surgery for prolapsed uterus, umbilical hernia repaie, open cholecystectomy, kidney stone removal Past Anesthesia/Blood Transfusion Reactions: Motion Sickness, Postoperative Nausea & Vomiting (PONV) Smoking Status: Never smoker - Past Family History Mother Family Medical History: Asthma, Diabetes Mellitus Additional Family Medical History / Comment(s): Mother from asthma at the age of 46yrs. Father Family Medical History: No Reported History, Unable to Obtain Medications and Allergies Home Medications Medication Instructions Recorded Confirmed Type Multivitamins, Thera [Multivitamin 1 tab PO DAILY 06/24/19 06/24/19 History (formulary)] No Known Home Medications 06/24/19 06/24/19 History Allergies Allergy/AdvReac Type Severity Reaction Status Date / Time capsaicin [From [place]] Allergy Rapid Verified 06/24/19 08:29 Heart Rate hydromorphone Allergy Rash/Hives Verified 06/24/19 08:29 NSAIDS (Non-Steroidal Allergy Rash/Hives Verified 06/24/19 08:29 Anti-Inflamma Penicillins Allergy Unknown Verified 06/24/19 08:29 Physical Exam Vitals: Vital Signs Temp Pulse Pulse Resp BP Pulse Ox 06/26/19 21:07 98.4 F 84 18 131/94 96 06/26/19 17:06 74 18 06/26/19 16:00 18 06/26/19 13:50 97.0 F L 95 18 125/67 95 06/26/19 05:55 97.8 F 68 16 130/74 95 Intake and Output 06/26/19 06/26/19 06/26/19 06:59 14:59 22:59 Intake Total 800 Balance 800 Intake: IV 800 Sodium Chloride 0.9% 1, 600 000 ml @ 75 mls/hr IV . [id number] NATA Rx#:[id number] metroNIDAZOLE-NS PMX 500 200 mg In Saline 1 100ml.bag @ 100 mls/hr IVPB Q8HR NATA Rx#:[id number] Other: Voiding Method Toilet # Voids 2 # Bowel Movements 1 0 On physical examination, patient appears comfortable in no apparent distress. HEAD: Normocephalic, atraumatic. EYES: No scleral icterus. No conjunctival injection. MOUTH: No lesions, tongue midline. NECK: Trachea midline, no gross abnormalities. CHEST: Clear to auscultation with no wheezing or rhonchi appreciated. HEART: Regular rate and rhythm. ABDOMEN: Soft, obese. Bowel sounds are positive. No organomegaly. No guarding or rigidity. EXTREMITIES: No pedal edema. SKIN: No rashes, no jaundice. NEUROLOGIC: Alert and oriented x3. No focal deficits. Results CBC & Chem 7: 06/26/19 07:19 06/26/19 07:19 Labs: Abnormal Lab Results - Last 24 Hours (Table) 06/26/19 06/26/19 Range/Units 07:19 07:19 Lymphocytes # 0.9 L (1.0-4.8) k/uL Glucose 111 H (74-99) mg/dL Microbiology - Last 24 Hours (Table) 06/24/19 12:26 Stool Culture - Preliminary Stool CT scan - abdomen: report reviewed (computed tomography scan showed possible enteritis with some thickening in the distal ileal loop as well as some possible sigmoid colitis.) Assessment and Plan (1) Colitis Narrative/Plan: 53-year-old female who presents with reports of altered bowel function, diarrhea and abdominal pain in the setting of a long standing history of chronic constipation. She reports multiple episodes of loose stool abnormal in color without any blood. Last colonoscopy 2-3 years ago and last EGD 3-4 years ago. She also has a history of reflux disease and reports intermittent solid food dysphagia previously treated with PPI therapy she is currently not on medication. Computed tomography scan of the abdomen did show some findings of enteritis with inflammation in the ileum as well as some possible sigmoid colitis. Current Visit: Yes Status: Acute Code(s): K52.9 - NONINFECTIVE GASTROENTERITIS AND COLITIS, UNSPECIFIED SNOMED Code(s): 21278741 (2) Altered bowel habits Current Visit: Yes Status: Acute Code(s): R19.4 - CHANGE IN BOWEL HABIT SNOMED Code(s): 004182000 (3) GERD (gastroesophageal reflux disease) Current Visit: Yes Status: Acute Code(s): K21.9 - GASTRO-ESOPHAGEAL REFLUX DISEASE WITHOUT ESOPHAGITIS SNOMED Code(s): 796973063 (4) Esophageal dysphagia Current Visit: Yes Status: Acute Code(s): R13.10 - DYSPHAGIA, UNSPECIFIED SNOMED Code(s): 92345223 Plan: Supportive care Okay for clear liquids Continue levofloxacin and Flagyl Continue to monitor stool output Continue Protonix twice daily Plan for EGD and colonoscopy tomorrow Avoid NSAID use Thank you for allowing us to participate in the care of the patient we will continue to follow
[2019-06-27] MEDS: metroNIDAZOLE-NS PMX 500 MG in SALINE 1 100ML.BAG IVPB SCH ×3 (01:36→15:18)
[2019-06-27] MEDS: TEMAZEPAM 15 MG CAP PO PRN ×2 (01:41→22:29)
[2019-06-27] MEDS: SODIUM CHLORIDE 0.9% 1,000 ML IV SCH ×2 (04:50→15:18)
[2019-06-27] MEDS: HEPARIN SODIUM,PORCINE 5,000 UNIT/ML 1 ML VIAL SQ SCH ×2 (07:00→22:24)
[2019-06-27] MEDS: MULTIVITAMINS, THERA 1 EACH TAB PO SCH (07:00)
[2019-06-27] MEDS: PANTOPRAZOLE 40 MG/10 ML VIAL IVP SCH (07:08)
[2019-06-27 07:29] LABS: Basophils % (A) 1 %; Eosinophils # (A) 0.3 k/uL (0-0.7); Eosinophils % (A) 3 %; HCT 44.1 % (34.0-46.0); HGB 14.1 gm/dL (11.4-16.0); Lymphocytes # (A) 1.6 k/uL (1.0-4.8); Lymphocytes % (A) 21 %; MCH 27.9 pg (25.0-35.0); MCHC 31.9 g/dL (31.0-37.0); MCV 87.3 fL (80.0-100.0); Mean Platelet Volume 7.4; Monocytes # (A) 0.5 k/uL (0-1.0); Monocytes % (A) 6 %; Neutrophils # (A) 5.1 k/uL (1.3-7.7); Neutrophils % (A) 68 %; Platelet Count 326 k/uL (150-450); RBC 5.05 m/uL (3.80-5.40); RDW 15.2 % (11.5-15.5); WBC 7.5 k/uL (3.8-10.6)
[2019-06-27 08:00] LABS: African American GFR (CKD) >90 (>60 ml/min/1.73 sqM); Anion Gap 9 mmol/L; Blood Urea Nitrogen 10 mg/dL (7-17); Calcium 9.7 mg/dL (8.4-10.2); Carbon Dioxide 30 mmol/L (22-30); Chloride 101 mmol/L (98-107); Glucose 108 mg/dL (74-99); Non-African American GFR(CKD) >90 (>60 ml/min/1.73 sqM); Potassium 3.9 mmol/L (3.5-5.1); Sodium 140 mmol/L (137-145)
[2019-06-27 08:18] LABS: C Reactive Protein 10.1 mg/L (<10.0)
[2019-06-27 09:18] LABS: Erythrocyte Sedimentation Rate 5 mm/hr (0-20)
[2019-06-27] MEDS ORDERED: diphenhydrAMINE ELIXIR 25 MG/10 ML CUP PO PRN (09:33)
[2019-06-27] MEDS: TERBINAFINE 1% CREAM 15 GM TUBE TOPICAL SCH ×2 (10:17→22:24)
[2019-06-27] MEDS ORDERED: PROPOFOL 10 MG/ML 20 ML VIAL IV ONE (13:23)
[2019-06-27] MEDS ORDERED: LIDOCAINE 1% INJ 10MG/ML (20 ML MDV) ONE (13:23)
[2019-06-27] MEDS ORDERED: IV FLUID CONTINUATION 1,000 ML IV ONE (13:29)
--- NOTE | 2019-06-27 14:16 | P.PCN ---
Date of Procedure: 06/27/19 Description of Procedure: Brief history: 53-year-old female with a medical history significant for asthma and GERD who presented to the emergency department for evaluation of abdominal pain and diarrhea. The patient reports that at baseline she is extremely constipated usually going over 3-4 days before having bowel movements. She reports using Ex-Lax as needed for bowel movements as well as magnesium in the past. She reports that initially she went 3 weeks without having a bowel movement. She then reports having 2 episodes of diarrhea prior to presentation and describes stool which was green and watery in color and then black in color and then yellow in color. No further bowel movements today. She does state she had a colonoscopy approximately 2-3 years ago and states that at that time she was treated with antibiotics. She also reports a history of gastritis found on EGD 3-4 years ago which she reports was treated with antibiotics. She does have a history of GERD and has been treated with Nexium and Prilosec in the past. Currently she is not on any medications and reports daily reflux. In addition she reports intermittent solid food dysphagia. Currently the patient is reporting abdominal pain described as both sharp and achy in the periumbilical region and the right lower abdomen. On presentation and computed tomography scan showed possible enteritis with some thickening in the distal ileal loop as well as some possible sigmoid colitis. Procedure performed: Esophagogastroduodenoscopy with biopsy Colonoscopy with biopsy and polypectomy Estimated blood loss: Minimal. Preoperative diagnosis: Abdominal pain, GERD, altered bowel function, abnormal computed tomography scan abdomen Anesthesia: MAC Procedure: After informed consent was obtained from the patient was brought into the endoscopy unit and IV sedation was administered by anesthesia under continuous monitoring. Initially upper endoscopy was done. The Olympus GF 190 video endoscope was inserted into the mouth and esophagus intubated without any difficulty and was gradually advanced into the stomach and duodenum and carefully examined. The bulb and second part of the duodenum appeared normal, biopsied. The scope was then withdrawn into the stomach adequately insufflated with air and upon careful examination the antrum and body, cardia and fundus appeared normal, except for some mild scattered erythema in the antrum and body suggestive of mild gastritis with biopsies taken. The scope was then withdrawn into the esophagus. The GE junction was located at 39 cm to the incisors. It appeared regular with no erythema erosions or ulcerations. Rest of the esophagus appeared normal. Patient tolerated the procedure well. At this time the patient continued to remain sedation. Initial digital rectal examination was normal. Olympus CF 190 video colonoscope was then inserted into the rectum and gradually advanced to the cecum without any difficulty. Careful examination was performed as the scope was gradually being withdrawn. The prep was excellent. The cecum, ascending colon, transverse colon, descending colon, sigmoid colon and rectum appeared normal, with random biopsies taken of the right and left colon. Terminal ileum was also intubated and appeared normal with random biopsies taken. Diminutive 2 mm sigmoid polyp removed with cold forcep polypectomy. Retroflexion was performed in the rectum and no lesions were noted, mild internal hemorrhoids were noted. Patient tolerated the procedure well. Impression: 1. Mild gastritis antrum and body, biopsied. Duodenal biopsies. 2. Normal-appearing colon from rectum to cecum, with random biopsies of the right colon and left colon given altered bowel function. Normal-appearing torque ileum, biopsied. 2 diminutive sigmoid polyp removed with cold forceps. Recommendations: Findings of this examination were discussed with the patient as well as the nursing staff. Okay to resume regular diet. Continue Protonix twice daily. Await pathology from polypectomy and biopsies. Continue current medical management.
[2019-06-27] MEDS: LEVOFLOXACIN 250 MG TAB PO SCH (14:50)
[2019-06-27] MEDS: PANTOPRAZOLE 40 MG TABLET PO SCH (17:05)
--- NOTE | 2019-06-27 18:59 | PN ---
PROGRESS NOTE DATE OF SERVICE: 06/27/2019 This 53-year-old woman who presented with multiple abdominal symptoms also had enteritis on the CT scan. The patient underwent EGD and colonoscopy by Dr. Mckeon. EGD showed mild gastritis. Colonoscopy showed no active abnormality except 2 diminutive sigmoid polyps. The patient also complained of a skin lesion on the right chest area. No chest pain. No palpitations. No fever. PHYSICAL EXAMINATION: Alert and oriented x3. Pulse 78, blood pressure 117/70, respiration 20, temperature 98.9, pulse ox 99% on room air. HEENT: Conjunctivae normal. NECK: No jugular venous distention. CARDIOVASCULAR SYSTEM: S1, S2 muffled. RESPIRATORY SYSTEM: Breath sounds diminished at the bases. No rhonchi. No crackles. ABDOMEN: Soft, non-tender. No mass palpable. LEGS: No edema. No swelling. NERVOUS SYSTEM: No focal deficit. LABS: CBC, BMP within normal limits. C-reactive protein is 10.1. The stool testing is negative, also. ASSESSMENT: 1. Abdominal pain and distention and diarrhea; possible acute enteritis, undetermined etiology, improving. 2. Esophagogastroduodenoscopy showing mild antral gastritis and colonoscopy showing diminutive colonic polyps. 3. Increased white count. 4. History of asthma, bronchitis. 5. Skin lesions, possibly tenia. 6. History of nephrolithiasis. 7. History of degenerative joint disease. 8. History of cholecystectomy. RECOMMENDATIONS AND DISCUSSION: I recommend to continue current medications, continue with the monitoring, symptomatic treatment. Otherwise, closely follow with multiple consultants. Prognosis guarded. Further recommendations to follow. MMODL / IJN: [id number] /
[2019-06-28] MEDS: metroNIDAZOLE-NS PMX 500 MG in SALINE 1 100ML.BAG IVPB SCH ×2 (00:56→08:09)
[2019-06-28 02:32] VITALS: RESP 20
[2019-06-28 05:35] VITALS: BP 109/75; PULSE 77; TEMP 97
[2019-06-28] MEDS: SODIUM CHLORIDE 0.9% 1,000 ML IV SCH (06:14)
[2019-06-28] MEDS: PANTOPRAZOLE 40 MG TABLET PO SCH (08:08)
[2019-06-28] MEDS: MULTIVITAMINS, THERA 1 EACH TAB PO SCH (08:08)
[2019-06-28] MEDS: TERBINAFINE 1% CREAM 15 GM TUBE TOPICAL SCH (08:09)
[2019-06-28] MEDS: HEPARIN SODIUM,PORCINE 5,000 UNIT/ML 1 ML VIAL SQ SCH (08:09)
--- NOTE | 2019-06-28 12:21 | DS ---
DISCHARGE SUMMARY DATE OF SERVICE: 06/28/2019 FINAL DIAGNOSES: 1. Abdominal pain, distention with diarrhea with possible acute enteritis, undetermined etiology, improved. 2. EGD showing mild antral gastritis and colonoscopy showing diminutive colonic polyps. 3. Increased WBC. 4. History of asthma, bronchitis. 5. Skin lesions, possible tenia. 6. History of nephrolithiasis. 7. History of degenerative joint disease. 8. History of cholecystectomy. DISCHARGE DISPOSITION: The patient will be discharged in a stable condition with guarded prognosis. HISTORY OF PRESENT ILLNESS: This is a 53-year-old woman with a past medical history of multiple medical problems being followed by Dr. Marzena Mclaughlin in the patient admitted with intestinal symptoms. The patient treated symptomatically. EGD, colonoscopy findings as above. Patient improved significantly. Patient has skin lesions. Local treatment suggested to be followed by Dr. Marzena Mclaughlin. Gastroenterology, Dr. Mckeon did the endoscopies. On exam, vitals are stable. CARDIOVASCULAR SYSTEM: S1, S2. ABDOMEN: Soft. NERVOUS SYSTEM: No focal deficits. DISCHARGE ADVICE: 1. Discharge diet is cardiac diet. 2. Activity limited until followup. 3. Follow up with Dr. Marzena Mclaughlin. 4. Follow up with GI as recommended. DISCHARGE MEDICATIONS ARE: 1. Multivitamins 1 p.o. daily. 2. Benadryl p.r.n. 3. Flagyl 500 mg p.o. q.8 for 4 days. 4. Lamisil for local application b.i.d. 5. Levaquin 250 mg p.o. daily for 5 days. 6. Protonix 40 mg p.o. daily. 7. Tylenol 500 mg q.6 p.r.n. Once again, the patient will be discharged in a stable condition with guarded prognosis. MMODL / IJN: [id number] /
--- NOTE | 2019-06-28 12:39 | P.PN ---
Subjective Progress Note Date: 06/21/19 Principal diagnosis: colitis GERD dysphagia S/P EGD/colon; gastritis, colonic biopsies polypectomy x 2. Feeling better. Objective - Vital Signs Vital signs: Vital Signs Temp 97 F L 06/28/19 04:30 Pulse 77 06/28/19 04:30 Resp 20 06/28/19 04:30 BP 109/75 06/28/19 04:30 Pulse Ox 97 06/28/19 04:30 Intake & Output 06/27/19 06/28/19 06/28/19 18:59 06:59 18:59 Intake Total 200 300 200 Balance 200 300 200 Intake: IV 200 Oral 300 200 Other: Voiding Method Toilet Toilet # Voids 4 2 # Bowel Movements 0 - Exam General appearance: The patient is alert, oriented, in no acute distress. HET: Head is normocephalic and atraumatic. Pupils are equal and reactive. Oropharynx is clear without lesions. Neck: Supple without lymphadenopathy. Trachea midline. Heart: S1 S2. Regular rate and rhythm. Lungs: No crackles or wheezes are heard. Abdomen: Soft, nontender, nondistended with bowel sounds. No peritoneal signs. No palpable organomegaly or masses. Extremities: Normal skin color and turgor. No cyanosis, rash, ulceration, clubbing, or edema. Radial and pedal pulses are 2/4 bilaterally. Neurological: No focal deficits. Strength and sensation are grossly intact. - Labs CBC & Chem 7: 06/27/19 07:01 06/27/19 07:01 Assessment and Plan (1) Colitis Narrative/Plan: s/p EGD/colonosocpy. EGD gastritis. Colonoscopy normal random biopsies polypectomy x 2 internal hemorrhoids. Current Visit: Yes Status: Acute Code(s): K52.9 - NONINFECTIVE GASTROENTERITIS AND COLITIS, UNSPECIFIED SNOMED Code(s): 13384906 (2) GERD (gastroesophageal reflux disease) Current Visit: Yes Status: Acute Code(s): K21.9 - GASTRO-ESOPHAGEAL REFLUX DISEASE WITHOUT ESOPHAGITIS SNOMED Code(s): 067691476 Plan: 1. DC per medicine. 2. Prilosec 20 mg daily. 3. RTC 3 weeks. Assessment and plan of care d/w Dr. Hoyt
== END 2019-06-28 13:25 | disposition home or self-care (01) ==
LOC: EC 04:31 → 4MS4W 07:33 → UNDOADMOB 07:33 → OBSVTOIN 06-26 14:34 → INTOOBSV 06-26 14:34 → UNDODISIN 06-28 13:25
PROVIDERS: ADMIT Hospitalist; ATTEND Hospitalist
PROC: 0DBN8ZX Excision of Sigmoid Colon, Via Natural or Artificial Opening Endoscopic, Diagnostic (ICD-10-PCS; 2019-06-27)
PROC: 0DBB8ZX Excision of Ileum, Via Natural or Artificial Opening Endoscopic, Diagnostic (ICD-10-PCS; 2019-06-27)
PROC: 0DBF8ZX Excision of Right Large Intestine, Via Natural or Artificial Opening Endoscopic, Diagnostic (ICD-10-PCS; 2019-06-27)
PROC: 0DBG8ZX Excision of Left Large Intestine, Via Natural or Artificial Opening Endoscopic, Diagnostic (ICD-10-PCS; 2019-06-27)
PROC: 0DB98ZX Excision of Duodenum, Via Natural or Artificial Opening Endoscopic, Diagnostic (ICD-10-PCS; principal; 2019-06-27 12:30)
PROC: 0DB78ZX Excision of Stomach, Pylorus, Via Natural or Artificial Opening Endoscopic, Diagnostic (ICD-10-PCS; 2019-06-27 12:30)
DX: R19.7 Diarrhea, unspecified (principal); R14.0 Abdominal distension (gaseous); R10.33 Periumbilical pain; R10.31 Right lower quadrant pain; K59.09 Other constipation; D72.829 Elevated white blood cell count, unspecified; R11.2 Nausea with vomiting, unspecified; K29.50 Unspecified chronic gastritis without bleeding; D12.5 Benign neoplasm of sigmoid colon; R15.9 Full incontinence of feces; E66.9 Obesity, unspecified; Z68.37 Body mass index [BMI] 37.0-37.9, adult; J45.909 Unspecified asthma, uncomplicated; K21.9 Gastro-esophageal reflux disease without esophagitis; K64.8 Other hemorrhoids; L98.9 Disorder of the skin and subcutaneous tissue, unspecified; M19.90 Unspecified osteoarthritis, unspecified site; R13.14 Dysphagia, pharyngoesophageal phase; Z87.442 Personal history of urinary calculi; Z87.09 Personal history of other diseases of the respiratory system; Z90.49 Acquired absence of other specified parts of digestive tract; Z88.6 Allergy status to analgesic agent; Z88.5 Allergy status to narcotic agent; Z88.0 Allergy status to penicillin; Z88.8 Allergy status to other drugs, medicaments and biological substances; Z82.5 Family history of asthma and other chronic lower respiratory diseases; Z83.3 Family history of diabetes mellitus
CPT/HCPCS: 96376 ×3; 96361 ×4; 96366 ×2; 96367; 96375 ×2; 96372 ×2; 96365; 99285; 36415; 88305; 80053; 80048 ×3; 85652; 83690; 85025 ×4; 86140; 81003; 87324; 87045; 87329; 87328; 83630; 87046; 74018; 74177; 45380; 43239; G0378 ×5; J1644 ×5; J2405; J1956; J2001; J0696; J2704; C9113 ×4; Q9967

== ENCOUNTER 2019-07-06 11:34 | Emergency (ER) | payer OTHER ==
[2019-07-06 11:38] VITALS: RESP 22
[2019-07-06] MEDS ORDERED: diphenhydrAMINE 50 MG/ML 1 ML VIAL IVP STA (12:05)
[2019-07-06] MEDS ORDERED: FAMOTIDINE 20 MG/2 ML VIAL IV STA (12:05)
[2019-07-06] MEDS ORDERED: DEXAMETHASONE SOD PHOSPHATE 10 MG/ML 1 ML VIAL IV STA (12:05)
[2019-07-06] MEDS ORDERED: FUROSEMIDE 10 MG/ML 4 ML VIAL IV STA (12:07)
[2019-07-06] MEDS ORDERED: TRIAMCINOLONE 0.1% CREAM 80 GM TUBE TOPICAL STA (12:07)
--- NOTE | 2019-07-06 12:27 | ED ---
Extremity Problem HPI - General Chief complaint: Extremity Problem,Nontraumatic Stated complaint: Feet Swelling, Abscess on Arm, Not urinating Time Seen by Provider: 07/06/19 11:50 Source: patient, RN notes reviewed, old records reviewed Mode of arrival: ambulatory Limitations: no limitations - History of Present Illness Initial comments: This is a 53-year-old female the ER for evaluation. Patient splinted for evaluation of rash of left upper extremity and significant swelling of bilateral lower extremity. Patient admits recent hospitalization unsure of what she was in the hospital for which is currently on an antibiotic on discharge. Patient s tates swelling in her legs is increased. She states the rash on her left upper extremity is getting warmer rather larger, itchy. Not painful. She did have an IV in that arm. No fevers. No pain. She has no chest pain no shortness breath MD Complaint: extremity pain, extremity swelling (Bilateral lower Shorty swelling), other (Left upper arm erythematous area 5 x 5 cm, circular raised warm and per patient is itching) -: days(s) Location: upper extremity (Rash), bilateral lower extremity (Edema) Radiation: none Severity scale (1-10): 4 Consistency: constant Improves with: nothing Worsens with: nothing - Related Data Home Medications Medication Instructions Recorded Confirmed Multivitamins, Thera [Multivitamin 1 tab PO DAILY 06/24/19 07/06/19 (formulary)] Previous Rx's Medication Instructions Recorded Pantoprazole [Protonix] 40 mg PO DAILY #30 tablet. 06/28/19 Furosemide [Lasix] 40 mg PO ONCE #5 tablet 07/06/19 Allergies Allergy/AdvReac Type Severity Reaction Status Date / Time capsaicin [From Dolorac] Allergy Rapid Verified 07/06/19 13:45 Heart Rate hydromorphone Allergy Rash/Hives Verified 07/06/19 13:45 NSAIDS (Non-Steroidal Allergy Rash/Hives Verified 07/06/19 13:45 Anti-Inflamma Penicillins Allergy Unknown Verified 07/06/19 13:45 Review of Systems ROS Statement: Those systems with pertinent positive or pertinent negative responses have been documented in the HPI. ROS Other: All systems not noted in ROS Statement are negative. Past Medical History Past Medical History: Asthma Additional Past Medical History / Comment(s): Bronchitis, kidney stones, bilateral knees "weak and swollen", pt states she retains fluid in her body and has had increased weakness and dizziness the past few months. History of Any Multi-Drug Resistant Organisms: None Reported Past Surgical History: Cholecystectomy, Tubal Ligation Additional Past Surgical History / Comment(s): Surgery for prolapsed uterus, umbilical hernia repaie, open cholecystectomy, kidney stone removal Past Anesthesia/Blood Transfusion Reactions: Motion Sickness, Postoperative Nausea & Vomiting (PONV) Past Psychological History: No Psychological Hx Reported Smoking Status: Never smoker Past Alcohol Use History: None Reported Past Drug Use History: None Reported - Past Family History Mother Family Medical History: Asthma, Diabetes Mellitus Additional Family Medical History / Comment(s): Mother from asthma at the age of 46yrs. Father Family Medical History: No Reported History, Unable to Obtain General Exam - General Exam Comments Initial Comments: Left upper extremity has rash, erythematous and warm Limitations: no limitations General appearance: alert, in no apparent distress Head exam: Present: atraumatic, normocephalic, normal inspection Eye exam: Present: normal appearance, PERRL, EOMI. Absent: scleral icterus, conjunctival injection, periorbital swelling ENT exam: Present: normal exam, mucous membranes moist Neck exam: Present: normal inspection. Absent: tenderness, meningismus, lymphadenopathy Respiratory exam: Present: normal lung sounds bilaterally. Absent: respiratory distress, wheezes, rales, rhonchi, stridor Cardiovascular Exam: Present: regular rate, normal rhythm, normal heart sounds. Absent: systolic murmur, diastolic murmur, rubs, gallop, clicks GI/Abdominal exam: Present: soft, normal bowel sounds. Absent: distended, tenderness, guarding, rebound, rigid Extremities exam: Present: normal inspection, full ROM, normal capillary refill, other (Bilateral lower extremity edema). Absent: tenderness, pedal edema, joint swelling, calf tenderness Back exam: Present: normal inspection Neurological exam: Present: alert, oriented X3, CN II-XII intact Psychiatric exam: Present: normal affect, normal mood Skin exam: Present: warm, dry, intact, normal color. Absent: rash Course Vital Signs 07/06/19 07/06/19 07/06/19 11:36 14:00 14:30 Temperature 98.1 F Pulse Rate 100 71 88 Respiratory 22 20 22 Rate Blood Pressure 137/92 130/93 125/101 O2 Sat by Pulse 97 96 99 Oximetry - Reevaluation(s) Reevaluation #1: 07/06/19 12:30 Medical record recent hospitalization or reviewed Reevaluation #2: 07/06/19 15:40 Patient's no acute distress Medical Decision Making - Medical Decision Making 53 female the ER for evaluation. She presents with lower extremity edema and left upper extremity urticaria rash. Rash is improved given Prelone for rash, patient placed on Lasix. We will Shorty edema and can be discharged home - Lab Data Result diagrams: 07/06/19 13:10 07/06/19 13:10 Lab Results 07/06/19 07/06/19 07/06/19 Range/Units 13:10 13:10 13:10 WBC 5.6 (3.8-10.6) k/uL RBC 4.98 (3.80-5.40) m/uL Hgb 13.5 (11.4-16.0) gm/dL Hct 43.2 (34.0-46.0) % MCV 86.6 (80.0-100.0) fL MCH 27.1 (25.0-35.0) pg MCHC 31.3 (31.0-37.0) g/dL RDW 14.2 (11.5-15.5) % Plt Count 317 (150-450) k/uL Neutrophils % 70 % Lymphocytes % 18 % Monocytes % 5 % Eosinophils % 3 % Basophils % 2 % Neutrophils # 3.9 (1.3-7.7) k/uL Lymphocytes # 1.0 (1.0-4.8) k/uL Monocytes # 0.3 (0-1.0) k/uL Eosinophils # 0.1 (0-0.7) k/uL Basophils # 0.1 (0-0.2) k/uL D-Dimer 1.08 H (<0.60) mg/L FEU Sodium 138 (137-145) mmol/L Potassium 4.4 (3.5-5.1) mmol/L Chloride 104 (98-107) mmol/L Carbon Dioxide 27 (22-30) mmol/L Anion Gap 7 mmol/L BUN 18 H (7-17) mg/dL Creatinine 0.64 (0.52-1.04) mg/dL Est GFR (CKD-EPI)AfAm >90 (>60 ml/min/1.73 sqM) Est GFR (CKD-EPI)NonAf >90 (>60 ml/min/1.73 sqM) Glucose 94 (74-99) mg/dL Calcium 9.4 (8.4-10.2) mg/dL Phosphorus 4.0 (2.5-4.5) mg/dL Magnesium 2.2 (1.6-2.3) mg/dL Total Bilirubin 0.6 (0.2-1.3) mg/dL AST 37 H (14-36) U/L ALT 52 (9-52) U/L Alkaline Phosphatase 75 (38-126) U/L Creatine Kinase 141 H (30-135) U/L Troponin I (0.000-0.034) ng/mL NT-Pro-B Natriuret Pep pg/mL Total Protein 7.1 (6.3-8.2) g/dL Albumin 4.1 (3.5-5.0) g/dL Urine Color Urine Appearance (Clear) Urine pH (5.0-8.0) Ur Specific [place] (1.001-1.035) Urine Protein (Negative) Urine Glucose (UA) (Negative) Urine Ketones (Negative) Urine Blood (Negative) Urine Nitrite (Negative) Urine Bilirubin (Negative) Urine Urobilinogen (<2.0) mg/dL Ur Leukocyte Esterase (Negative) Ur Squamous Epith Cells (0-4) /hpf Amorphous Sediment (None) /hpf 07/06/19 07/06/19 07/06/19 Range/Units 13:10 13:10 13:10 WBC (3.8-10.6) k/uL RBC (3.80-5.40) m/uL Hgb (11.4-16.0) gm/dL Hct (34.0-46.0) % MCV (80.0-100.0) fL MCH (25.0-35.0) pg MCHC (31.0-37.0) g/dL RDW (11.5-15.5) % Plt Count (150-450) k/uL Neutrophils % % Lymphocytes % % Monocytes % % Eosinophils % % Basophils % % Neutrophils # (1.3-7.7) k/uL Lymphocytes # (1.0-4.8) k/uL Monocytes # (0-1.0) k/uL Eosinophils # (0-0.7) k/uL Basophils # (0-0.2) k/uL D-Dimer (<0.60) mg/L FEU Sodium (137-145) mmol/L Potassium (3.5-5.1) mmol/L Chloride (98-107) mmol/L Carbon Dioxide (22-30) mmol/L Anion Gap mmol/L BUN (7-17) mg/dL Creatinine (0.52-1.04) mg/dL Est GFR (CKD-EPI)AfAm (>60 ml/min/1.73 sqM) Est GFR (CKD-EPI)NonAf (>60 ml/min/1.73 sqM) Glucose (74-99) mg/dL Calcium (8.4-10.2) mg/dL Phosphorus (2.5-4.5) mg/dL Magnesium (1.6-2.3) mg/dL Total Bilirubin (0.2-1.3) mg/dL AST (14-36) U/L ALT (9-52) U/L Alkaline Phosphatase (38-126) U/L Creatine Kinase (30-135) U/L Troponin I <0.012 (0.000-0.034) ng/mL NT-Pro-B Natriuret Pep 21 pg/mL Total Protein (6.3-8.2) g/dL Albumin (3.5-5.0) g/dL Urine Color Light Yellow Urine Appearance Cloudy H (Clear) Urine pH 7.0 (5.0-8.0) Ur Specific [place] 1.013 (1.001-1.035) Urine Protein Negative (Negative) Urine Glucose (UA) Negative (Negative) Urine Ketones Negative (Negative) Urine Blood Negative (Negative) Urine Nitrite Negative (Negative) Urine Bilirubin Negative (Negative) Urine Urobilinogen <2.0 (<2.0) mg/dL Ur Leukocyte Esterase Negative (Negative) Ur Squamous Epith Cells 1 (0-4) /hpf Amorphous Sediment Occasional H (None) /hpf - EKG Data -: EKG Interpreted by Me (EKG shows normal sinus rhythm rate of 77, MN 160, QRS 86, QTc 448) - Radiology Data Radiology results: report reviewed (Chest x-ray, ultrasound of left upper extremity and bilateral lower extremity are negative for DVT), image reviewed Disposition Clinical Impression: Bilateral lower extremity edema, Urticaria Narrative: LUE Urticaria Disposition: HOME SELF-CARE Condition: Good Instructions (If sedation given, give patient instructions): Urticaria (ED), Leg Edema (ED) Prescriptions: Furosemide [Lasix] 40 mg PO ONCE #5 tablet Is patient prescribed a controlled substance at d/c from ED?: No Referrals: Marzena Mclaughlin MD [Primary Care Provider] - 1-2 days
[2019-07-06 13:21] LABS: Basophils # (A) 0.1 k/uL (0-0.2); Basophils % (A) 2 %; Eosinophils # (A) 0.1 k/uL (0-0.7); Eosinophils % (A) 3 %; HCT 43.2 % (34.0-46.0); HGB 13.5 gm/dL (11.4-16.0); Lymphocytes % (A) 18 %; MCH 27.1 pg (25.0-35.0); MCHC 31.3 g/dL (31.0-37.0); MCV 86.6 fL (80.0-100.0); Mean Platelet Volume 7.8; Monocytes # (A) 0.3 k/uL (0-1.0); Monocytes % (A) 5 %; Neutrophils # (A) 3.9 k/uL (1.3-7.7); Neutrophils % (A) 70 %; Platelet Count 317 k/uL (150-450); RBC 4.98 m/uL (3.80-5.40); RDW 14.2 % (11.5-15.5); WBC 5.6 k/uL (3.8-10.6)
[2019-07-06 13:32] LABS: ALT 52 U/L (9-52); AST 37 U/L (14-36); African American GFR (CKD) >90 (>60 ml/min/1.73 sqM); Albumin 4.1 g/dL (3.5-5.0); Alkaline Phosphatase 75 U/L (38-126); Anion Gap 7 mmol/L; Blood Urea Nitrogen 18 mg/dL (7-17); Calcium 9.4 mg/dL (8.4-10.2); Carbon Dioxide 27 mmol/L (22-30); Chloride 104 mmol/L (98-107); Creatine Kinase 141 U/L (30-135); Glucose 94 mg/dL (74-99); Magnesium 2.2 mg/dL (1.6-2.3); Potassium 4.4 mmol/L (3.5-5.1); Sodium 138 mmol/L (137-145); Total Bilirubin 0.6 mg/dL (0.2-1.3); Total Protein 7.1 g/dL (6.3-8.2)
[2019-07-06 13:40] LABS: Amorphous Sediment,Urine Occasional /hpf; Appearance,Urine Cloudy (Clear); Bilirubin,Urine Negative (Negative); Blood,Urine Negative (Negative); Color,Urine Light Yellow; Glucose,Urine (UA) Negative (Negative); Ketones,Urine Negative (Negative); Leukocyte Esterase,Urine Negative (Negative); Nitrite,Urine Negative (Negative); Protein,Urine Negative (Negative); Specific Gravity,Urine 1.013 (1.001-1.035); Squamous Epithelial Cell,Urine 1 /hpf (0-4); Urobilinogen,Urine <2.0 mg/dL (<2.0)
--- NOTE | 2019-07-06 13:44 | XR ---
EXAMINATION TYPE: XR chest 2V DATE OF EXAM: 07/06/2019 HISTORY: Weakness. REFERENCE: Previous study dated 06/10/2019. FINDINGS: Heart size upper limits of normal. The lungs are clear. Pleural space are clear. IMPRESSION: BORDERLINE CARDIOMEGALY
--- NOTE | 2019-07-06 15:08 | US ---
EXAMINATION TYPE: US venous doppler duplex UE LT DATE OF EXAM: 07/06/2019 COMPARISON: NONE CLINICAL HISTORY: dvt. left arm redness SIDE PERFORMED: left Left Arm: Negative for DVT IMPRESSION: No evidence of deep venous thrombosis in the left arm. No pathologic fluid collection seen in the are a of concern on the inside arm.
--- NOTE | 2019-07-06 15:08 | US ---
EXAMINATION TYPE: US venous doppler duplex LE DATE OF EXAM: 07/06/2019 2:58 PM COMPARISON: US CLINICAL HISTORY: dvt. Bilateral leg swelling SIDE PERFORMED: Bilateral TECHNIQUE: The lower extremity deep venous system is examined utilizing real time linear array sonog cedrick with graded compression, doppler sonography and color-flow sonography. VESSELS IMAGED: External Iliac Vein (EIV) Common Femoral Vein Deep Femoral Vein Greater Saphenous Vein * Femoral Vein Popliteal Vein Small Saphenous Vein * Proximal Calf Veins (* superficial vessels) Limited compression images due to patient being unable to tolerate. Right Leg: Negative for DVT Left Leg: Negative for DVT IMPRESSION: No evidence of deep venous thrombosis in both legs.
[2019-07-06 16:09] VITALS: BP 136/99; PULSE 93; TEMP 98.2
== END 2019-07-06 16:09 | disposition home or self-care (01) ==
LOC: EC 11:34
DX: L50.9 Urticaria, unspecified (principal); R60.0 Localized edema; Z88.0 Allergy status to penicillin; Z88.5 Allergy status to narcotic agent; Z88.6 Allergy status to analgesic agent; Z88.8 Allergy status to other drugs, medicaments and biological substances
CPT/HCPCS: 96374; 96375 ×3; 99284; 36415; 93005; 85379; 83880; 80053; 82550; 83735; 84100; 84484; 85025; 81001; 71046; 93970; 93971; J1200; J1100; J1940

== ENCOUNTER 2019-07-14 23:09 | Observation (INO) | payer OTHER ==
--- NOTE | 2019-07-14 23:41 | ED ---
Chest Pain HPI - General Chief Complaint: Chest Pain Stated Complaint: Chest Pain Time Seen by Provider: 07/14/19 23:24 Source: patient Mode of arrival: ambulatory Limitations: no limitations - History of Present Illness MD Complaint: chest pain Onset/Timin -: days(s) Onset: during rest Pain Location: left chest Pain Radiation: none Severity: moderate Quality: tightness Consistency: constant Improves With: nothing Worsens With: nothing Anginal Symptoms: dyspnea Treatments Prior to Arrival: none - Related Data Home Medications Medication Instructions Recorded Confirmed Multivitamins, Thera [Multivitamin 1 tab PO DAILY 06/24/19 07/14/19 (formulary)] Previous Rx's Medication Instructions Recorded Pantoprazole [Protonix] 40 mg PO DAILY #30 tablet. 06/28/19 Allergies Allergy/AdvReac Type Severity Reaction Status Date / Time capsaicin [From Dolorac] Allergy Rapid Verified 07/14/19 23:30 Heart Rate hydromorphone Allergy Rash/Hives Verified 07/14/19 23:30 NSAIDS (Non-Steroidal Allergy Rash/Hives Verified 07/14/19 23:30 Anti-Inflamma Penicillins Allergy Unknown Verified 07/14/19 23:30 Review of Systems ROS Statement: Those systems with pertinent positive or pertinent negative responses have been documented in the HPI. ROS Other: All systems not noted in ROS Statement are negative. Constitutional: Denies: fever, chills Respiratory: Reports: dyspnea. Denies: cough, wheezes Cardiovascular: Reports: chest pain, edema. Denies: palpitations, orthopnea, syncope Gastrointestinal: Denies: abdominal pain, nausea, vomiting Genitourinary: Denies: dysuria, hematuria Musculoskeletal: Denies: back pain Skin: Denies: rash Neurological: Denies: headache, weakness EKG Findings - EKG Results: EKG: interpreted by ERMD, sinus rhythm (Heart rate 94 bpm), normal axis, normal QRS, normal ST/T, no acute changes - SC, Pacemaker, Normal: Normal tracing: normal tracing Past Medical History Past Medical History: Asthma Additional Past Medical History / Comment(s): Bronchitis, kidney stones, bilateral knees "weak and swollen", pt states she retains fluid in her body, enlarged heart History of Any Multi-Drug Resistant Organisms: None Reported Past Surgical History: Cholecystectomy, Hernia Repair, Tubal Ligation Additional Past Surgical History / Comment(s): Surgery for prolapsed uterus, umbilical hernia repaie, open cholecystectomy, kidney stone removal Past Anesthesia/Blood Transfusion Reactions: Motion Sickness, Postoperative Nausea & Vomiting (PONV) Past Psychological History: No Psychological Hx Reported Smoking Status: Never smoker Past Alcohol Use History: None Reported Past Drug Use History: None Reported - Past Family History Mother Family Medical History: Asthma, Diabetes Mellitus Additional Family Medical History / Comment(s): Mother from asthma at the age of 46yrs. Father Family Medical History: No Reported History, Unable to Obtain General Exam Limitations: no limitations General appearance: alert, in no apparent distress Head exam: Present: atraumatic, normocephalic Eye exam: Present: normal appearance. Absent: scleral icterus, conjunctival injection ENT exam: Present: normal oropharynx Neck exam: Present: normal inspection Respiratory exam: Present: normal lung sounds bilaterally. Absent: respiratory distress, wheezes, rales, rhonchi, stridor Cardiovascular Exam: Present: regular rate, normal rhythm, normal heart sounds. Absent: systolic murmur, diastolic murmur, rubs, gallop GI/Abdominal exam: Present: soft. Absent: distended, tenderness, guarding, rebound, rigid, mass Extremities exam: Present: normal inspection, normal capillary refill. Absent: pedal edema, calf tenderness Back exam: Present: normal inspection. Absent: CVA tenderness (R), CVA tenderness (L) Neurological exam: Present: alert Skin exam: Present: warm, dry, intact, normal color. Absent: rash Course Vital Signs 07/14/19 07/15/19 07/15/19 23:16 03:12 03:22 Temperature 98.4 F Pulse Rate 96 93 96 Respiratory 20 18 Rate Blood Pressure 134/94 122/93 O2 Sat by Pulse 97 97 Oximetry 07/15/19 07/15/19 03:29 06:10 Temperature 98.1 F Pulse Rate 99 87 Respiratory 20 Rate Blood Pressure 134/69 O2 Sat by Pulse 98 Oximetry Disposition Clinical Impression: Chest pain, Thrombophlebitis arm Disposition: ADMITTED IP TO THIS HOSP Condition: Good
[2019-07-15 00:05] LABS: Basophils # (A) 0.1 k/uL (0-0.2); Basophils % (A) 1 %; Eosinophils # (A) 0.3 k/uL (0-0.7); Eosinophils % (A) 4 %; HCT 38.1 % (34.0-46.0); HGB 12.8 gm/dL (11.4-16.0); Lymphocytes # (A) 2.3 k/uL (1.0-4.8); Lymphocytes % (A) 26 %; MCH 28.3 pg (25.0-35.0); MCHC 33.7 g/dL (31.0-37.0); Mean Platelet Volume 6.4; Monocytes # (A) 0.5 k/uL (0-1.0); Monocytes % (A) 5 %; Neutrophils # (A) 5.4 k/uL (1.3-7.7); Neutrophils % (A) 62 %; Platelet Count 309 k/uL (150-450); RBC 4.53 m/uL (3.80-5.40); RDW 13.7 % (11.5-15.5); WBC 8.7 k/uL (3.8-10.6)
[2019-07-15 00:15] LABS: ALT 35 U/L (9-52); AST 32 U/L (14-36); African American GFR (CKD) >90 (>60 ml/min/1.73 sqM); Albumin 3.5 g/dL (3.5-5.0); Alkaline Phosphatase 55 U/L (38-126); Amylase 57 U/L (30-110); Anion Gap 8 mmol/L; Blood Urea Nitrogen 13 mg/dL (7-17); Calcium 8.9 mg/dL (8.4-10.2); Carbon Dioxide 24 mmol/L (22-30); Chloride 107 mmol/L (98-107); Glucose 112 mg/dL (74-99); Magnesium 2.1 mg/dL (1.6-2.3); Sodium 139 mmol/L (137-145); Total Bilirubin 0.3 mg/dL (0.2-1.3); Total Protein 6.1 g/dL (6.3-8.2)
[2019-07-15 00:19] LABS: INR 0.9 (<1.2); Partial Thromboplastin Time 24.2 sec (22.0-30.0); Prothrombin Time 9.9 sec (9.0-12.0)
[2019-07-15 00:31] LABS: D-Dimer 3.43 mg/L FEU (<0.60)
[2019-07-15 00:54] LABS: Appearance,Urine Cloudy (Clear); Bilirubin,Urine Negative (Negative); Blood,Urine Negative (Negative); Calcium Oxalate Crystals,Urine Rare /hpf; Color,Urine Light Yellow; Glucose,Urine (UA) Negative (Negative); Ketones,Urine Negative (Negative); Leukocyte Esterase,Urine Small (Negative); Mucus,Urine Rare /hpf; Nitrite,Urine Negative (Negative); Protein,Urine Negative (Negative); Specific Gravity,Urine 1.011 (1.001-1.035); Squamous Epithelial Cell,Urine 1 /hpf (0-4); Urobilinogen,Urine <2.0 mg/dL (<2.0); WBC,Urine 6 /hpf (0-5)
--- NOTE | 2019-07-15 00:59 | XR ---
EXAMINATION TYPE: XR chest 2V DATE OF EXAM: 07/15/2019 COMPARISON: 07/06/2019 HISTORY: Chest pain TECHNIQUE: Frontal and lateral views of the chest are obtained. FINDINGS: Heart is normal. Lungs are clear of consolidation. Thoracic aorta shows some atheromatous change. There are chest leads. Bony thorax is intact. IMPRESSION: Atheromatous aorta. No active cardiopulmonary disease. No change. There is some aneurysm al change of the aortic arch.
--- NOTE | 2019-07-15 02:02 | CT ---
EXAMINATION TYPE: CT chest angio for PE DATE OF EXAM: 07/15/2019 COMPARISON: None HISTORY: elevated D-Dimer CT DLP: 430.2 mGycm Automated exposure control for dose reduction was used. CONTRAST: CT Chest for pulmonary embolism performed with with IV Contrast, patient injected with 75 mL of Isovu e 370. There are 3-D post processed images. FINDINGS: There is minimal interstitial infiltrate and atelectasis in the lower lung romero. There is no eviden ce of a pulmonary mass. There is no pleural effusion. There is no pericardial effusion. I see no fill ing defects in the pulmonary arteries. There is suboptimal contrast density in the smaller branches o f the pulmonary arteries. Thoracic aorta shows no aneurysm or dissection. There is no mediastinal adenopathy. There are no rj r masses. The bony thorax is intact. IMPRESSION: Negative exam. No evidence of pulmonary embolism.
[2019-07-15] MEDS ORDERED: ALBUTEROL NEBULIZED 2.5 MG/3 ML INHALATION STA (02:18)
[2019-07-15] MEDS ORDERED: NITROGLYCERIN SL TABS 0.4 MG TAB SUBLINGUAL PRN (04:33)
[2019-07-15 07:30] VITALS: RESP 18
[2019-07-15 08:07] LABS: Cholesterol 172 mg/dL (<200); HDL Cholesterol 48 mg/dL (40-60); LDL Cholesterol,Calculated 108 mg/dL (0-99); Triglycerides 78 mg/dL (<150)
[2019-07-15] MEDS ORDERED: MULTIVITAMINS, THERA 1 EACH TAB PO SCH (09:00)
[2019-07-15] MEDS ORDERED: PANTOPRAZOLE 40 MG TABLET PO SCH (09:00)
--- NOTE | 2019-07-15 09:41 | P.CRDCN ---
History of Present Illness History of present illness: This is a pleasant 53-year-old female past medical history significant for bronchitis, GERD and asthma. She denies prior history of coronary artery disease. She recently established in the office with Dr. Hoyt secondary to palpitations and underwent echocardiogram and Lexiscan stress test. Stress test was negative for reversible cardiac ischemia and echocardiogram revealed preserved LV systolic function with ejection fraction 55%. We have been asked to see her in consultation secondary to chest discomfort. The patient states for the previous one month she has noticed pain in the left precordial region that is worse with deep inspiration. She also describes epigastric discomfort described as a burning sensation, frequent headaches and difficulty urinating. She is seen and examined sitting up in bed in no acute distress. The chest pain she describes is in the left precordial region and radiates through to her back when she takes a deep breath. There is no pain in the arm, neck or jaw. She complains of associated shortness of breath, mild dizziness and nausea at times. She states she hasn't had a bowel movement in a few days and has not urinated all day yesterday. She recently underwent EGD and colonscopry with Dr. Mckeon revealing mild gastritis and normal appearing colon. Biopsies obtained and unremarkable. EKG reveals sinus mechanism with no acute ST or T wave abnormalities noted. Telemetry tracings reviewed and unremarkable. Chest x-ray is negative for an acute cardiopulmonary process with evidence of erythematous aorta. CTA negative for pulmonary embolism, aneurysm or dissection. Laboratory data reviewed, CBC unremarkable, d-dimer 3.43, sodium 139, potassium 4.0, creatinine 0.65, magnesium 2.1, cardiac enzymes negative 2, proBNP 31, LDL 108. She currently takes no daily cardiac medications. At the time of my exam: CONSTITUTIONAL: Denies fever. Denies chills. EYES: Denies blurred vision. Denies vision changes. Denies eye pain. EARS, NOSE, MOUTH & THROAT: Denies headache. Denies sore throat. Denies ear pain. CARDIOVASCULAR: Complains of pleuritic chest pain. Denies shortness of breath. Denies orthopnea. Denies PND. Denies palpitations. RESPIRATORY: Complains of dry cough. GASTROINTESTINAL: Complains of epigastric/abdominal pain. Denies diarrhea. Complains of constipation. Denies nausea. Denies vomiting. MUSCULOSKELETAL: Denies myalgias. INTEGUMENTARY: Denies pruitis. Denies rash. NEUROLOGIC: Denies numbness. Denies tingling. Denies weakness. PSYCHIATRIC: Denies anxiety. Denies depression. ENDOCRINE: Denies fatigue. Denies weight change. Denies polydipsia. Denies polyurina. GENITOURINARY: Denies burning, hematuria or urgency with micturation. HEMATOLOGIC: Denies history of anemia. Denies bleeding. Blood pressure 156/97 heart rate 85 afebrile maintaining oxygen saturation on room air GENERAL: This is a 53-year-old female in no apparent distress at the time of my examination. HEENT: Head is atraumatic, normocephalic. Pupils are equal, round. Sclerae anicteric. Conjunctivae are clear. Mucous membranes of the mouth are moist. Neck is supple. There is no jugular venous distention. No carotid bruit is heard. LUNGS: Clear to auscultation no wheezes, rales or rhonchi. No chest wall tenderness is noted on palpation or with deep breathing. HEART: Regular rate and rhythm without murmurs, rubs or gallops. S1 and S2 heard. ABDOMEN: Soft, nontender. Bowel sounds are heard. No organomegaly noted. EXTREMITIES: No evidence of peripheral edema and no calf tenderness noted. VASCULAR: Radial and dorsalis pedis pulses palpated, no evidence of clubbing. NEUROLOGIC: Patient is awake, alert and oriented x3. ASSESSMENT Chest pain, pleuritic. Atypical for angina. An acute event has been ruled out. REcent stress test in the office negative for reversibility. Urinary retention Constipation PLAN Pain is pleuritic and non-cardiac in origin. Recent stress test and echo in the office were both normal. Stable from a cardiac perspective. Ongoing medical management. Follow-up with Dr. Hoyt upon discharge. We will follow as needed. Thank you kindly for this consultation. Nurse Practitioner note has been reviewed, I agree with a documented findings and plan of care. Patient was seen and examined. Past Medical History Past Medical History: Asthma Additional Past Medical History / Comment(s): Bronchitis, kidney stones, bilateral knees "weak and swollen", pt states she retains fluid in her body, enlarged heart History of Any Multi-Drug Resistant Organisms: None Reported Past Surgical History: Cholecystectomy, Hernia Repair, Tubal Ligation Additional Past Surgical History / Comment(s): Surgery for prolapsed uterus, umbilical hernia repaie, open cholecystectomy, kidney stone removal Past Anesthesia/Blood Transfusion Reactions: Motion Sickness, Postoperative Nausea & Vomiting (PONV) Past Psychological History: No Psychological Hx Reported Smoking Status: Never smoker Past Alcohol Use History: None Reported Past Drug Use History: None Reported - Past Family History Mother Family Medical History: Asthma, Diabetes Mellitus Additional Family Medical History / Comment(s): Mother from asthma at the age of 46yrs. Father Family Medical History: No Reported History, Unable to Obtain Medications and Allergies Home Medications Medication Instructions Recorded Confirmed Type Multivitamins, Thera [Multivitamin 1 tab PO DAILY 06/24/19 07/14/19 History (formulary)] Pantoprazole [Protonix] 40 mg PO DAILY #30 tablet. 06/28/19 07/14/19 Rx Allergies Allergy/AdvReac Type Severity Reaction Status Date / Time capsaicin [From [facility]] Allergy Rapid Verified 07/14/19 23:30 Heart Rate hydromorphone Allergy Rash/Hives Verified 07/14/19 23:30 NSAIDS (Non-Steroidal Allergy Rash/Hives Verified 07/14/19 23:30 Anti-Inflamma Penicillins Allergy Unknown Verified 07/14/19 23:30 Physical Exam Vitals: Vital Signs Temp Pulse Pulse Resp BP BP Pulse Ox 07/15/19 07:25 97.5 F L 85 18 156/97 99 07/15/19 07:00 97.9 F 94 20 114/81 98 07/15/19 06:10 98.1 F 87 20 134/69 98 07/15/19 03:29 99 07/15/19 03:22 96 07/15/19 03:12 93 18 122/93 97 07/14/19 23:16 98.4 F 96 20 134/94 97 Intake and Output 07/14/19 07/15/19 07/15/19 22:59 06:59 14:59 Other: Weight 97.976 kg Results 07/14/19 23:57 07/14/19 23:57 Cardiac Enzymes 07/14/19 07/14/19 07/15/19 Range/Units 23:57 23:57 05:39 AST 32 (14-36) U/L Troponin I <0.012 <0.012 (0.000-0.034) ng/mL Coagulation 07/14/19 Range/Units 23:57 PT 9.9 (9.0-12.0) sec APTT 24.2 (22.0-30.0) sec CBC 07/14/19 Range/Units 23:57 WBC 8.7 (3.8-10.6) k/uL RBC 4.53 (3.80-5.40) m/uL Hgb 12.8 (11.4-16.0) gm/dL Hct 38.1 (34.0-46.0) % Plt Count 309 (150-450) k/uL Comprehensive Metabolic Panel 07/14/19 Range/Units 23:57 Sodium 139 (137-145) mmol/L Potassium 4.0 (3.5-5.1) mmol/L Chloride 107 (98-107) mmol/L Carbon Dioxide 24 (22-30) mmol/L BUN 13 (7-17) mg/dL Creatinine 0.65 (0.52-1.04) mg/dL Glucose 112 H (74-99) mg/dL Calcium 8.9 (8.4-10.2) mg/dL AST 32 (14-36) U/L ALT 35 (9-52) U/L Alkaline Phosphatase 55 (38-126) U/L Total Protein 6.1 L (6.3-8.2) g/dL Albumin 3.5 (3.5-5.0) g/dL Current Medications Generic Name Dose Route Start Last Admin Trade Name Freq PRN Reason Stop Dose Admin Multivitamins 1 each 07/15/19 09:00 Theragran PO DAILY NATA Nitroglycerin 0.4 mg 07/15/19 04:33 Nitrostat SUBLINGUAL Q5M PRN Chest Pain Pantoprazole Sodium 40 mg 07/15/19 09:00 Protonix PO DAILY NATA Sodium Chloride 10 ml 07/15/19 09:00 Saline Flush IV BID NATA Intake and Output 07/14/19 07/15/19 07/15/19 22:59 06:59 14:59 Other: Weight 97.976 kg 07/14/19 23:57 07/14/19 23:57
[2019-07-15 11:27] VITALS: BP 134/98; PULSE 93; TEMP 98.6
--- NOTE | 2019-07-15 12:53 | P.HPIM ---
History of Present Illness 53-year-old pleasant female with known history of asthma came in with complaints of chest pain in the upper chest area going to the back patient was extensively evaluated in the recent past had a recent stress test which was negative patient was ruled out acute current symptoms after which because of which cardiology cleared her for discharge. Patient has multiple other nonspecific complaints including not able to urinate although has a serum creatinine is within normal limits. Patient is also complaining of cough and asthma but patient is not wheezing at this time. Patient had elevated d-dimer because of which had a CT angios the chest which did not show any significant abnormality. All the workup is negative patient will be discharged today patient is already on Protonix for gastroesophageal reflux disease. Review of Systems REVIEW OF SYSTEMS: CONSTITUTIONAL: No fever, no malaise, no fatigue. HEENT: No recent visual problems or hearing problems. Denied any sore throat. CARDIOVASCULAR: , no palpitations, no syncope. PULMONARY: As mentioned above GASTROINTESTINAL: No diarrhea, no nausea, no vomiting, no abdominal pain. NEUROLOGICAL: No headaches, no weakness, no numbness. HEMATOLOGICAL: Denies any bleeding or petechiae. GENITOURINARY: Denies any burning micturition, frequency, or urgency. MUSCULOSKELETAL/RHEUMATOLOGICAL: Denies any joint pain, swelling, or any muscle pain. ENDOCRINE: Denies any polyuria or polydipsia. The rest of the 14-point review of systems is negative. Past Medical History Past Medical History: Asthma Additional Past Medical History / Comment(s): Bronchitis, kidney stones, bilateral knees "weak and swollen", pt states she retains fluid in her body, enlarged heart History of Any Multi-Drug Resistant Organisms: None Reported Past Surgical History: Cholecystectomy, Hernia Repair, Tubal Ligation Additional Past Surgical History / Comment(s): Surgery for prolapsed uterus, umbilical hernia repaie, open cholecystectomy, kidney stone removal Past Anesthesia/Blood Transfusion Reactions: Motion Sickness, Postoperative Nausea & Vomiting (PONV) Past Psychological History: No Psychological Hx Reported Smoking Status: Never smoker Past Alcohol Use History: None Reported Past Drug Use History: None Reported - Past Family History Mother Family Medical History: Asthma, Diabetes Mellitus Additional Family Medical History / Comment(s): Mother from asthma at the age of 46yrs. Father Family Medical History: No Reported History, Unable to Obtain Medications and Allergies Home Medications Medication Instructions Recorded Confirmed Type Multivitamins, Thera [Multivitamin 1 tab PO DAILY 06/24/19 07/14/19 History (formulary)] Pantoprazole [Protonix] 40 mg PO DAILY #30 tablet. 06/28/19 07/14/19 Rx Allergies Allergy/AdvReac Type Severity Reaction Status Date / Time capsaicin [From [facility]] Allergy Rapid Verified 07/14/19 23:30 Heart Rate hydromorphone Allergy Rash/Hives Verified 07/14/19 23:30 NSAIDS (Non-Steroidal Allergy Rash/Hives Verified 07/14/19 23:30 Anti-Inflamma Penicillins Allergy Unknown Verified 07/14/19 23:30 Physical Exam Vitals: Vital Signs Temp Pulse Pulse Resp BP BP Pulse Ox 07/15/19 11:25 98.6 F 93 18 134/98 98 07/15/19 07:25 97.5 F L 85 18 156/97 99 07/15/19 07:00 97.9 F 94 20 114/81 98 07/15/19 06:10 98.1 F 87 20 134/69 98 07/15/19 03:29 99 07/15/19 03:22 96 07/15/19 03:12 93 18 122/93 97 07/14/19 23:16 98.4 F 96 20 134/94 97 Intake and Output 07/14/19 07/15/19 07/15/19 22:59 06:59 14:59 Intake Total 240 Output Total 400 Balance -160 Intake: Oral 240 Output: Urine 400 Other: Voiding Method Toilet # Bowel Movements 1 Weight 97.976 kg PHYSICAL EXAMINATION: GENERAL: The patient is alert and oriented x3, not in any acute distress. Well developed, well nourished. HEENT: Pupils are round and equally reacting to light. EOMI. No scleral icterus. No conjunctival pallor. Normocephalic, atraumatic. No pharyngeal erythema. No thyromegaly. CARDIOVASCULAR: S1 and S2 present. No murmurs, rubs, or gallops. PULMONARY: Chest is clear to auscultation, no wheezing or crackles. ABDOMEN: Soft, nontender, nondistended, normoactive bowel sounds. No palpable organomegaly. MUSCULOSKELETAL: No joint swelling or deformity. EXTREMITIES: No cyanosis, clubbing, or pedal edema. NEUROLOGICAL: Gross neurological examination did not reveal any focal deficits. SKIN: No rashes. Results CBC & Chem 7: 07/14/19 23:57 07/14/19 23:57 Labs: Abnormal Lab Results - Last 24 Hours (Table) 07/14/19 07/14/19 07/15/19 Range/Units 23:57 23:57 00:40 D-Dimer 3.43 H (<0.60) mg/L FEU Glucose 112 H (74-99) mg/dL Total Protein 6.1 L (6.3-8.2) g/dL LDL Cholesterol, Calc (0-99) mg/dL Urine Appearance Cloudy H (Clear) Ur Leukocyte Esterase Small H (Negative) Urine WBC 6 H (0-5) /hpf Calcium Oxalate Crystal Rare H (None) /hpf Urine Mucus Rare H (None) /hpf 07/15/19 Range/Units 05:39 D-Dimer (<0.60) mg/L FEU Glucose (74-99) mg/dL Total Protein (6.3-8.2) g/dL LDL Cholesterol, Calc 108 H (0-99) mg/dL Urine Appearance (Clear) Ur Leukocyte Esterase (Negative) Urine WBC (0-5) /hpf Calcium Oxalate Crystal (None) /hpf Urine Mucus (None) /hpf Thrombosis Risk Factor Assmnt - Choose All That Apply Any of the Below Risk Factors Present?: Yes Each Factor Represents 1 point: Age 41-60 years, Obesity (BMI >25), Swollen legs (current) Other Risk Factors: No Other congenital or acquired thrombophilia - If yes, enter type in comment: No Thrombosis Risk Factor Assessment Total Risk Factor Score: 3 Thrombosis Risk Factor Assessment Level: Moderate Risk Assessment and Plan Plan: -Chest pain rule out acute medicine syndromes patient was evaluated by cardiology patient had a recent stress test which did not show any significant abnormality cardiology cleared her for discharge patient had an upper GI endoscopy gastritis in the past for which patient is on Protonix rule out pulmonary embolism there is no pneumonia. Most of her nonspecific symptoms appears to be psychosomatic in nature. Patient will benefit from psychiatric evaluation frequent follow-ups with primary care physician -Asthma without any acute exacerbation -Multiple other nonspecific symptoms possibly psychosomatic in nature will benefit from psychiatric evaluation
--- NOTE | 2019-07-15 13:04 | P.DS ---
Providers Date of admission: 07/15/19 04:33 Attending physician: Shari Boggs Consults: 07/15/19 04:33 Consult Physician Routine Consulting Provider: Amanda Montero Consult Reason/Comments: chest pain Do you want consulting provider notified?: Yes Primary care physician: Marzena Mclaughlin [facility] Hospital Course: Please refer to my HPI Patient Condition at Discharge: Good Plan - Discharge Summary Discharge Rx Participant: Yes New Discharge Prescriptions: No Action Multivitamins, Thera [Multivitamin (formulary)] 1 tab PO DAILY Pantoprazole [Protonix] 40 mg PO DAILY #30 tablet. Discharge Medication List Multivitamins, Thera [Multivitamin (formulary)] 1 tab PO DAILY 06/24/19 [History ] Pantoprazole [Protonix] 40 mg PO DAILY #30 tablet. 06/28/19 [Rx] Follow up Appointment(s)/Referral(s): Yuri Sorensen MD [STAFF PHYSICIAN] - 07/22/19 10:15 am (JARED Reeves, bring insurance card and photo identification. Please arrive 15 minutes early. ) Marzena Mclaughlin MD [Primary Care Provider] - 3 Days Franklin Hoyt MD [STAFF PHYSICIAN] - 07/23/19 2:00 pm Patient Instructions/Handouts: Chest Pain (DC) Discharge Disposition: HOME SELF-CARE
== END 2019-07-15 14:05 | disposition home or self-care (01) ==
LOC: EC 23:09 → 1SOBS 07-15 04:33
PROVIDERS: ADMIT Hospitalist; ATTEND Hospitalist
DX: R07.89 Other chest pain (principal); R42 Dizziness and giddiness; R11.0 Nausea; R51 Headache; K59.00 Constipation, unspecified; R07.81 Pleurodynia; R33.9 Retention of urine, unspecified; I51.7 Cardiomegaly; J45.909 Unspecified asthma, uncomplicated; R79.89 Other specified abnormal findings of blood chemistry; K21.9 Gastro-esophageal reflux disease without esophagitis; M79.89 Other specified soft tissue disorders; E66.9 Obesity, unspecified; Z68.35 Body mass index [BMI] 35.0-35.9, adult; Z87.09 Personal history of other diseases of the respiratory system; Z87.442 Personal history of urinary calculi; Z90.49 Acquired absence of other specified parts of digestive tract; Z79.899 Other long term (current) drug therapy; Z88.5 Allergy status to narcotic agent; Z88.0 Allergy status to penicillin; Z88.8 Allergy status to other drugs, medicaments and biological substances; Z82.5 Family history of asthma and other chronic lower respiratory diseases; Z83.3 Family history of diabetes mellitus
CPT/HCPCS: 99285; 36415; 94640; 93005; 85379; 83880; 80061; 80053; 82150; 83690; 83735; 84484 ×2; 85025; 85610; 85730; 81001; 71046; 71275; G0378; Q9967

== ENCOUNTER 2019-07-18 19:18 | Emergency (ER) | payer OTHER ==
[2019-07-18 19:31] VITALS: RESP 18
--- NOTE | 2019-07-18 22:03 | ED ---
Extremity Problem HPI - General Chief complaint: Extremity Problem,Nontraumatic Stated complaint: Swollen feet Source: patient Mode of arrival: ambulatory Limitations: no limitations - History of Present Illness Initial comments: Patient is a pleasant 53-year-old female presents to the emergency department today for evaluation of swelling in her bilateral lower extremities and d ifficulty urinating. Patient was seen and evaluated for this 2 weeks ago. Patient reports that despite stating hospital her feet continued to be swollen she continues to have trouble urinating. Patient states that 2 or 3 days ago she had an entire day without urinating. She reports she's been eating and drinking well. She suffers from chronic abdominal pain is unchanged. She is having normal bowel movements no nausea no vomiting no fevers no chills no chest pain or palpitations. - Related Data Home Medications Medication Instructions Recorded Confirmed Multivitamins, Thera [Multivitamin 1 tab PO DAILY 06/24/19 07/18/19 (formulary)] Previous Rx's Medication Instructions Recorded Pantoprazole [Protonix] 40 mg PO DAILY #30 tablet. 06/28/19 Nitrofurantoin Monohyd/M-Cryst 100 mg PO Q12HR #10 cap 07/19/19 [Macrobid] Allergies Allergy/AdvReac Type Severity Reaction Status Date / Time capsaicin [From Dolorac] Allergy Rapid Verified 07/19/19 05:42 Heart Rate hydromorphone Allergy Rash/Hives Verified 07/19/19 05:42 NSAIDS (Non-Steroidal Allergy Rash/Hives Verified 07/19/19 05:42 Anti-Inflamma Penicillins Allergy Unknown Verified 07/19/19 05:42 Review of Systems ROS Statement: Those systems with pertinent positive or pertinent negative responses have been documented in the HPI. ROS Other: All systems not noted in ROS Statement are negative. Past Medical History Past Medical History: Asthma Additional Past Medical History / Comment(s): Bronchitis, kidney stones, bilateral knees "weak and swollen", pt states she retains fluid in her body, enlarged heart History of Any Multi-Drug Resistant Organisms: None Reported Past Surgical History: Cholecystectomy, Hernia Repair, Tubal Ligation Additional Past Surgical History / Comment(s): Surgery for prolapsed uterus, umbilical hernia repaie, open cholecystectomy, kidney stone removal Past Anesthesia/Blood Transfusion Reactions: Motion Sickness, Postoperative Nausea & Vomiting (PONV) Past Psychological History: No Psychological Hx Reported Smoking Status: Never smoker Past Alcohol Use History: None Reported Past Drug Use History: None Reported - Past Family History Mother Family Medical History: Asthma, Diabetes Mellitus Additional Family Medical History / Comment(s): Mother from asthma at the age of 46yrs. Father Family Medical History: No Reported History, Unable to Obtain General Exam - General Exam Comments Initial Comments: Physical Exam GENERAL: Patient is well-developed and well-nourished. Patient is nontoxic and well- hydrated and is in no distress. HENT: Normocephalic, Atraumatic. EYES: PERRL, EOMI PULMONARY: Unlabored respirations. No audible rales rhonchi or wheezing was noted. CARDIOVASCULAR: There is a regular rate and rhythm without any murmurs gallops or rubs. ABDOMEN: Soft and nontender with normal bowel sounds. SKIN: Skin is clear with no lesions or rashes and otherwise unremarkable. : Deferred NEUROLOGIC: Patient is alert and oriented x3. Moving all extremities spontaneously MUSCULOSKELETAL: Normal extremities with adequate strength and full range of motion. No lower extremity swelling or edema. No calf tenderness. 1+ pitting edema bilateral lower extremities to the mid calf PSYCHIATRIC: Normal psychiatric evaluation. Limitations: no limitations Course Vital Signs 07/18/19 07/18/19 07/19/19 19:29 23:54 02:16 Temperature 98.2 F 98 F 98 F Pulse Rate 98 85 100 Respiratory 18 18 18 Rate Blood Pressure 126/84 126/82 116/80 O2 Sat by Pulse 99 95 98 Oximetry Medical Decision Making - Medical Decision Making The patient was seen and evaluated history was obtained from the patient and review of medical record This is a pleasant 53-year-old female no acute distress with persistent swelling of her bilateral lower extremities and difficulty urinating Labs and imaging were obtained She was encouraged to urinate was able to ambulate independently to the restroom urinating. Patient was then noted to walk from the restroom to the door of her room and shut the door for privacy. Patient had no difficulty doing this. Labs her baseline, urinalysis with possible early urinary tract infection. Macrobid was ordered first dose was given in the emergency department patient was given a prescription. Labs with no evidence of CHF, is not elevated, no pleural effusions, I suspect the patient's bilateral lower extremity edema secondary to her obesity. Supportive care was discussed with questions pertaining care were answered patient was discharged home in stable condition. - Lab Data Result diagrams: 07/18/19 22:06 07/18/19 22:06 Lab Results 07/18/19 07/18/19 07/18/19 Range/Units 22:06 22:06 22:06 WBC 9.5 (3.8-10.6) k/uL RBC 4.92 (3.80-5.40) m/uL Hgb 13.8 (11.4-16.0) gm/dL Hct 42.7 (34.0-46.0) % MCV 86.8 (80.0-100.0) fL MCH 28.1 (25.0-35.0) pg MCHC 32.4 (31.0-37.0) g/dL RDW 13.5 (11.5-15.5) % Plt Count 332 (150-450) k/uL Neutrophils % 64 % Lymphocytes % 24 % Monocytes % 6 % Eosinophils % 4 % Basophils % 1 % Neutrophils # 6.1 (1.3-7.7) k/uL Lymphocytes # 2.3 (1.0-4.8) k/uL Monocytes # 0.6 (0-1.0) k/uL Eosinophils # 0.3 (0-0.7) k/uL Basophils # 0.1 (0-0.2) k/uL PT 9.4 (9.0-12.0) sec INR 0.8 (<1.2) APTT 23.7 (22.0-30.0) sec Sodium 138 (137-145) mmol/L Potassium 4.1 (3.5-5.1) mmol/L Chloride 105 (98-107) mmol/L Carbon Dioxide 24 (22-30) mmol/L Anion Gap 9 mmol/L BUN 18 H (7-17) mg/dL Creatinine 0.79 (0.52-1.04) mg/dL Est GFR (CKD-EPI)AfAm >90 (>60 ml/min/1.73 sqM) Est GFR (CKD-EPI)NonAf 87 (>60 ml/min/1.73 sqM) Glucose 98 (74-99) mg/dL Calcium 9.5 (8.4-10.2) mg/dL Magnesium 2.2 (1.6-2.3) mg/dL Total Bilirubin 0.2 (0.2-1.3) mg/dL AST 35 (14-36) U/L ALT 48 (9-52) U/L Alkaline Phosphatase 86 (38-126) U/L Troponin I (0.000-0.034) ng/mL NT-Pro-B Natriuret Pep pg/mL Total Protein 7.1 (6.3-8.2) g/dL Albumin 4.3 (3.5-5.0) g/dL Urine Color Urine Appearance (Clear) Urine pH (5.0-8.0) Ur Specific Theresa (1.001-1.035) Urine Protein (Negative) Urine Glucose (UA) (Negative) Urine Ketones (Negative) Urine Blood (Negative) Urine Nitrite (Negative) Urine Bilirubin (Negative) Urine Urobilinogen (<2.0) mg/dL Ur Leukocyte Esterase (Negative) Urine RBC (0-5) /hpf Urine WBC (0-5) /hpf Ur Squamous Epith Cells (0-4) /hpf Calcium Oxalate Crystal (None) /hpf Urine Bacteria (None) /hpf Urine Mucus (None) /hpf 07/18/19 07/18/19 07/18/19 Range/Units 22:06 22:06 23:49 WBC (3.8-10.6) k/uL RBC (3.80-5.40) m/uL Hgb (11.4-16.0) gm/dL Hct (34.0-46.0) % MCV (80.0-100.0) fL MCH (25.0-35.0) pg MCHC (31.0-37.0) g/dL RDW (11.5-15.5) % Plt Count (150-450) k/uL Neutrophils % % Lymphocytes % % Monocytes % % Eosinophils % % Basophils % % Neutrophils # (1.3-7.7) k/uL Lymphocytes # (1.0-4.8) k/uL Monocytes # (0-1.0) k/uL Eosinophils # (0-0.7) k/uL Basophils # (0-0.2) k/uL PT (9.0-12.0) sec INR (<1.2) APTT (22.0-30.0) sec Sodium (137-145) mmol/L Potassium (3.5-5.1) mmol/L Chloride (98-107) mmol/L Carbon Dioxide (22-30) mmol/L Anion Gap mmol/L BUN (7-17) mg/dL Creatinine (0.52-1.04) mg/dL Est GFR (CKD-EPI)AfAm (>60 ml/min/1.73 sqM) Est GFR (CKD-EPI)NonAf (>60 ml/min/1.73 sqM) Glucose (74-99) mg/dL Calcium (8.4-10.2) mg/dL Magnesium (1.6-2.3) mg/dL Total Bilirubin (0.2-1.3) mg/dL AST (14-36) U/L ALT (9-52) U/L Alkaline Phosphatase (38-126) U/L Troponin I <0.012 (0.000-0.034) ng/mL NT-Pro-B Natriuret Pep 19 pg/mL Total Protein (6.3-8.2) g/dL Albumin (3.5-5.0) g/dL Urine Color Yellow Urine Appearance Clear (Clear) Urine pH 6.0 (5.0-8.0) Ur Specific Theresa 1.018 (1.001-1.035) Urine Protein Negative (Negative) Urine Glucose (UA) Negative (Negative) Urine Ketones Negative (Negative) Urine Blood Negative (Negative) Urine Nitrite Negative (Negative) Urine Bilirubin Negative (Negative) Urine Urobilinogen <2.0 (<2.0) mg/dL Ur Leukocyte Esterase Moderate H (Negative) Urine RBC 1 (0-5) /hpf Urine WBC 21 H (0-5) /hpf Ur Squamous Epith Cells 3 (0-4) /hpf Calcium Oxalate Crystal Rare H (None) /hpf Urine Bacteria Rare H (None) /hpf Urine Mucus Rare H (None) /hpf - EKG Data -: EKG Interpreted by Me EKG shows normal: sinus rhythm EKG Comments: EKG was obtained due to complaint of lower extremity edema. EKG was obtained that 1947, rate is 93, rhythm is sinus, there is a normal axis, there are normal intervals, OR 160, QRS 88, QTC is 457 there are no acute ST elevations or depressions there is no evidence of acute ischemia or infarction. Disposition Clinical Impression: UTI (urinary tract infection), Edema of lower extremity Disposition: HOME SELF-CARE Condition: Stable Instructions (If sedation given, give patient instructions): Urinary Tract Infection in Women (DC) Prescriptions: Nitrofurantoin Monohyd/M-Cryst [Macrobid] 100 mg PO Q12HR #10 cap Is patient prescribed a controlled substance at d/c from ED?: No Referrals: Marzena Mclaughlin MD [Primary Care Provider] - 1-2 days
[2019-07-18 22:32] LABS: Basophils # (A) 0.1 k/uL (0-0.2); Basophils % (A) 1 %; Eosinophils # (A) 0.3 k/uL (0-0.7); Eosinophils % (A) 4 %; HCT 42.7 % (34.0-46.0); HGB 13.8 gm/dL (11.4-16.0); Lymphocytes # (A) 2.3 k/uL (1.0-4.8); Lymphocytes % (A) 24 %; MCH 28.1 pg (25.0-35.0); MCHC 32.4 g/dL (31.0-37.0); MCV 86.8 fL (80.0-100.0); Mean Platelet Volume 6.7; Monocytes # (A) 0.6 k/uL (0-1.0); Monocytes % (A) 6 %; Neutrophils # (A) 6.1 k/uL (1.3-7.7); Neutrophils % (A) 64 %; Platelet Count 332 k/uL (150-450); RBC 4.92 m/uL (3.80-5.40); RDW 13.5 % (11.5-15.5); WBC 9.5 k/uL (3.8-10.6)
[2019-07-18 22:41] LABS: INR 0.8 (<1.2); Partial Thromboplastin Time 23.7 sec (22.0-30.0); Prothrombin Time 9.4 sec (9.0-12.0)
[2019-07-18 22:45] LABS: ALT 48 U/L (9-52); AST 35 U/L (14-36); African American GFR (CKD) >90 (>60 ml/min/1.73 sqM); Albumin 4.3 g/dL (3.5-5.0); Alkaline Phosphatase 86 U/L (38-126); Anion Gap 9 mmol/L; Blood Urea Nitrogen 18 mg/dL (7-17); Calcium 9.5 mg/dL (8.4-10.2); Carbon Dioxide 24 mmol/L (22-30); Chloride 105 mmol/L (98-107); Glucose 98 mg/dL (74-99); Magnesium 2.2 mg/dL (1.6-2.3); Non-African American GFR(CKD) 87 (>60 ml/min/1.73 sqM); Potassium 4.1 mmol/L (3.5-5.1); Sodium 138 mmol/L (137-145); Total Bilirubin 0.2 mg/dL (0.2-1.3); Total Protein 7.1 g/dL (6.3-8.2)
--- NOTE | 2019-07-18 22:54 | XR ---
EXAM: XR Chest, 2 Views CLINICAL HISTORY: Chest pain. TECHNIQUE: Frontal and lateral views of the chest. COMPARISON: 07/15/2019. FINDINGS: Lungs: Possible mild central pulmonary vascular congestion. Pleural space: No pneumothorax. No pleural effusion. Heart: Mild cardiomegaly. Mediastinum: Unremarkable. Bones/joints: Osteopenia. Ribs and thoracic spine are grossly unremarkable. Other findings: There is mild hypoaeration. IMPRESSION: Cardiomegaly. Clinical correlation is advised to assess for the possibility of incipient congestive heart failure. No pleural effusions. No pneumothorax.
[2019-07-18] MEDS ORDERED: SODIUM CHLORIDE 0.9% 1,000 ML IV ONE (23:29)
[2019-07-18 23:55] VITALS: TEMP 98
[2019-07-19 00:14] LABS: Appearance,Urine Clear (Clear); Bacteria,Urine Rare /hpf; Bilirubin,Urine Negative (Negative); Blood,Urine Negative (Negative); Calcium Oxalate Crystals,Urine Rare /hpf; Color,Urine Yellow; Glucose,Urine (UA) Negative (Negative); Ketones,Urine Negative (Negative); Leukocyte Esterase,Urine Moderate (Negative); Mucus,Urine Rare /hpf; Nitrite,Urine Negative (Negative); Protein,Urine Negative (Negative); RBC,Urine 1 /hpf (0-5); Specific Gravity,Urine 1.018 (1.001-1.035); Squamous Epithelial Cell,Urine 3 /hpf (0-4); Urobilinogen,Urine <2.0 mg/dL (<2.0); WBC,Urine 21 /hpf (0-5)
[2019-07-19] MEDS ORDERED: NITROFURANTOIN MONOHYD/M-CRYST 100 MG CAP PO STA (00:19)
[2019-07-19 02:18] VITALS: BP 116/80; PULSE 100
== END 2019-07-19 02:38 | disposition home or self-care (01) ==
LOC: EC 19:18
DX: N39.0 Urinary tract infection, site not specified (principal); R60.0 Localized edema; G89.29 Other chronic pain; E66.9 Obesity, unspecified; Z68.35 Body mass index [BMI] 35.0-35.9, adult; Z88.0 Allergy status to penicillin; Z88.5 Allergy status to narcotic agent; Z88.6 Allergy status to analgesic agent; Z88.8 Allergy status to other drugs, medicaments and biological substances
CPT/HCPCS: 36415; 71046; 80053; 81001; 83735; 83880; 84484; 85025; 85610; 85730; 93005; 96360; 96361; 99284

== ENCOUNTER 2019-07-19 05:34 | Emergency (ER) | payer OTHER ==
[2019-07-19 05:42] VITALS: BP 125/86; PULSE 81; RESP 18; TEMP 97.9
[2019-07-19] MEDS ORDERED: SODIUM CHLORIDE 0.9% 1,000 ML IV STA (05:43)
--- NOTE | 2019-07-19 05:50 | ED ---
Chest Pain HPI - General Chief Complaint: Chest Pain Stated Complaint: Chest/Back Pain Revisit Time Seen by Provider: 07/19/19 05:43 Source: patient Mode of arrival: ambulatory Limitations: no limitations - History of Present Illness Initial Comments: Vandana is a pleasant 53-year-old female who presents to the ER today for reevaluation. Patient was seen and evaluated yesterday for lower extremity swelling and was subsequently discharged home. Patient was unable to find a ride and spit the evening sitting in the waiting room of the emergency department. This morning the patient reported she began to feel uncomfortable thought she may be having chest pain with no shortness breath palpitations diaphoresis or lightheadedness. - Related Data Home Medications Medication Instructions Recorded Confirmed RX: Multivitamins, Thera 1 tab PO DAILY 06/24/19 07/18/19 [Multivitamin (formulary)] Previous Rx's Medication Instructions Recorded RX: Pantoprazole [Protonix] 40 mg PO DAILY #30 tablet. 06/28/19 Nitrofurantoin Monohyd/M-Cryst 100 mg PO Q12HR #10 cap 07/19/19 [Macrobid] Allergies Allergy/AdvReac Type Severity Reaction Status Date / Time capsaicin [From Dolorac] Allergy Rapid Verified 07/19/19 05:42 Heart Rate hydromorphone Allergy Rash/Hives Verified 07/19/19 05:42 NSAIDS (Non-Steroidal Allergy Rash/Hives Verified 07/19/19 05:42 Anti-Inflamma Penicillins Allergy Unknown Verified 07/19/19 05:42 Review of Systems ROS Statement: Those systems with pertinent positive or pertinent negative responses have been documented in the HPI. ROS Other: All systems not noted in ROS Statement are negative. EKG Findings - EKG Comments: EKG Findings:: EKG was obtained to complain of chest pain, EKG obtained at 553, rate is any rhythm is sinus is normal axis short interval, NJ 162, QRS 86, QTC 457 there are no acute ST elevations or depressions no evidence of acute ischemia infarction or arrhythmia. Past Medical History Past Medical History: Asthma Additional Past Medical History / Comment(s): Bronchitis, kidney stones, bilateral knees "weak and swollen", pt states she retains fluid in her body, enlarged heart History of Any Multi-Drug Resistant Organisms: None Reported Past Surgical History: Cholecystectomy, Hernia Repair, Tubal Ligation Additional Past Surgical History / Comment(s): Surgery for prolapsed uterus, umbilical hernia repaie, open cholecystectomy, kidney stone removal Past Anesthesia/Blood Transfusion Reactions: Motion Sickness, Postoperative Nausea & Vomiting (PONV) Past Psychological History: No Psychological Hx Reported Smoking Status: Never smoker Past Alcohol Use History: None Reported Past Drug Use History: None Reported - Past Family History Mother Family Medical History: Asthma, Diabetes Mellitus Additional Family Medical History / Comment(s): Mother from asthma at the age of 46yrs. Father Family Medical History: No Reported History, Unable to Obtain General Exam - General Exam Comments Initial Comments: Physical Exam GENERAL: Patient is well-developed and well-nourished. Patient is nontoxic and well-hydrated and is in no distress. HENT: Normocephalic, Atraumatic. EYES: PERRL, EOMI PULMONARY: Unlabored respirations. No audible rales rhonchi or wheezing was noted. CARDIOVASCULAR: There is a regular rate and rhythm without any murmurs gallops or rubs. ABDOMEN: Soft and nontender with normal bowel sounds. SKIN: Skin is clear with no lesions or rashes and otherwise unremarkable. : Deferred NEUROLOGIC: Patient is alert and oriented x3. Moving all extremities spontaneously MUSCULOSKELETAL: Normal extremities with adequate strength and full range of motion. No lower extremity swelling or edema. No calf tenderness. PSYCHIATRIC: Normal psychiatric evaluation. Limitations: no limitations Course Vital Signs 07/19/19 05:40 Temperature 97.9 F Pulse Rate 81 Respiratory 18 Rate Blood Pressure 125/86 O2 Sat by Pulse 99 Oximetry Chest Pain [facility] Patient was seen and evaluated history is obtained from patient I did see the patient earlier in the edition Clinical workup was initiated patient's chest pain does not appear cardiac at all EKG nonischemic chest x-ray unchanged unremarkable Heart score 2 for age and obesity Patient was reevaluated and sleeping comfortably. At this time patient is stable for discharge home with outpatient follow-up with her primary care physician. Disposition Clinical Impression: Atypical chest pain Disposition: HOME SELF-CARE Condition: Stable Instructions (If sedation given, give patient instructions): Chest Pain (ED) Is patient prescribed a controlled substance at d/c from ED?: No Referrals: Marzena Mclaughlin MD [Primary Care Provider] - 1-2 days
[2019-07-19 06:16] LABS: Basophils # (A) 0.1 k/uL (0-0.2); Basophils % (A) 1 %; Eosinophils # (A) 0.3 k/uL (0-0.7); Eosinophils % (A) 4 %; HCT 43.1 % (34.0-46.0); HGB 13.3 gm/dL (11.4-16.0); Lymphocytes # (A) 1.4 k/uL (1.0-4.8); Lymphocytes % (A) 19 %; MCH 27.2 pg (25.0-35.0); MCHC 30.8 g/dL (31.0-37.0); MCV 88.1 fL (80.0-100.0); Mean Platelet Volume 7.1; Monocytes # (A) 0.5 k/uL (0-1.0); Monocytes % (A) 8 %; Neutrophils # (A) 4.7 k/uL (1.3-7.7); Neutrophils % (A) 66 %; Platelet Count 311 k/uL (150-450); WBC 7.2 k/uL (3.8-10.6)
[2019-07-19 06:27] LABS: INR 0.8 (<1.2); Prothrombin Time 9.4 sec (9.0-12.0)
[2019-07-19 06:28] LABS: ALT 47 U/L (9-52); AST 33 U/L (14-36); African American GFR (CKD) >90 (>60 ml/min/1.73 sqM); Albumin 3.9 g/dL (3.5-5.0); Alkaline Phosphatase 76 U/L (38-126); Anion Gap 7 mmol/L; Blood Urea Nitrogen 18 mg/dL (7-17); Calcium 9.1 mg/dL (8.4-10.2); Carbon Dioxide 26 mmol/L (22-30); Chloride 107 mmol/L (98-107); Glucose 110 mg/dL (74-99); Magnesium 2.1 mg/dL (1.6-2.3); Non-African American GFR(CKD) >90 (>60 ml/min/1.73 sqM); Potassium 4.2 mmol/L (3.5-5.1); Sodium 140 mmol/L (137-145); Total Bilirubin 0.4 mg/dL (0.2-1.3); Total Protein 6.9 g/dL (6.3-8.2)
--- NOTE | 2019-07-19 06:41 | XR ---
EXAM: XR Chest, 2 Views CLINICAL HISTORY: ITS.REASON XR Reason: Chest Pain TECHNIQUE: Frontal and lateral views of the chest. COMPARISON: 07/18/19 IMPRESSION: Unchanged heart size. No consolidation or pleural effusion.
== END 2019-07-19 07:15 | disposition home or self-care (01) ==
LOC: EC 05:34
DX: R07.89 Other chest pain (principal); M54.9 Dorsalgia, unspecified; Z88.0 Allergy status to penicillin; Z88.5 Allergy status to narcotic agent; Z88.6 Allergy status to analgesic agent; Z88.8 Allergy status to other drugs, medicaments and biological substances
CPT/HCPCS: 36415; 71046; 80053; 81001; 83735; 83880; 84484; 85025; 85610; 85730; 93005; 96360; 96361; 99284; 99285

== ENCOUNTER → 2019-08-01 | Outpatient (CLI) | payer OTHER ==
--- NOTE | 2019-08-02 13:28 | MM ---
Reason for exam: additional evaluation requested from prior study. Last mammogram was performed 2 years and 4 months ago. Physical Findings: Nurse Summary: 0.5cm nodule in the right breast at 2 o'clock (nurse paul). MG Diagnostic Mammo w CAD MARYLU Bilateral CC and MLO view(s) were taken. Prior study comparison: May 23, 2018, mammogram. April 07, 2017, right breast MG work up mamm w CAD RT. March 30, 2017, bilateral MG screening mammo w CAD. The breast tissue is heterogeneously dense. This may lower the sensitivity of mammography. There is no discrete abnormality. These results were verbally communicated with the patient and result sheet given to the patient on 08/01/19. ASSESSMENT: Negative, BI-RAD 1 RECOMMENDATION: Routine screening mammogram of both breasts in 1 year.
--- NOTE | 2019-08-02 13:32 | USB ---
Reason for exam: additional evaluation requested from prior study. US Breast Limited RT Right limited breast ultrasound including focal area of concern, retroareolar and axilla demonstrates a palpable at 3 o'clock, a 0.5 x 0.4 x 0.6cm lesion at 9 o'clock prior labeled at 10 o'clock 0.7 x 0.5 x 0.7cm, a 0.4 x 0.2 x 0.6cm cystic lesion at 10 o'clock, a lobe at 9 o'clock, a 0.7 x 0.4 x 0.3cm lesion at 11 o'clock for which a biopsy is recommended, shadowing and a 0.8 x 0.7 x 0.4cm lesion at 11 o'clock, questionable lipoma, prior 1.1 x 0.5 x 0.5cm. These results were verbally communicated with the patient and result sheet given to the patient on 08/01/19. ASSESSMENT: Suspicious, BI-RAD 4 RECOMMENDATION: Ultrasound core biopsy of the right breast. Called Dr. Mclaughlin's office with mammographic findings and has scheduled an appointment for the patient for 08/21/19 at 1:[address] Stapleton. Biopsy scheduled for 08/26/19 at 2:00. PRELIMINARY REPORT CALLED AND FAXED TO DR. STAPLETON ON 08/01/19.
== END | disposition home or self-care (01) ==
LOC: MERGE 07-02 07:40 → RADMAMWWP 12:49
PROVIDERS: ATTEND Family Medicine
DX: R92.8 Other abnormal and inconclusive findings on diagnostic imaging of breast (principal)
CPT/HCPCS: 77066

== ENCOUNTER → 2019-08-21 | Outpatient (CLI) | payer OTHER ==
[2019-08-21 13:07] VITALS: BP 156/92; PULSE 113; RESP 18; TEMP 97.7; BMI 37.2
--- NOTE | 2019-08-21 14:36 | P.GSHP ---
History of Present Illness H&P Date: 08/21/19 Chief Complaint: ultrasound abnormality in right breast, left bresat pain The patient is a 53-year-old female who presents for breast evaluation. She had a mammogram and ultrasound done on [id number]. The mammogram was negative BIRADS 1 however the ultrasound revealed a suspicious lesion at 11:00. This was 0.7 x 0.4 cm for which biopsy was recommended. The patient does not feel any masses or lumps in her breasts. This was a routine screening mammogram. The patient does complain at times of pain in the left breast in the upper inner quadrant area with palpation. The pain is sharp in nature. She is not complaining of any nipple discharge or skin changes. The pain goes to her nipple when it occurs. She is uncertain of anything that precipitates this. She drinks 1 cup of coffee/day. She does not smoke, and is not exposed to 2nd hand smoke. She eats chocolate occasionally. She is perimenopausal at this time. She stopped having menstrual periods but does have occasional spotting. She is not taking any hormones. Family History: sister: right breast excision not cancer Hormonal History: menarche: 15 , first at 20, breast fed: yes menopause: Perimenopausal at this time BCP: 1 year hormones: none Past Medical History: asthma enlarged heart/ now OK Surgical History: tubaligation umbilical hernia Social History: smoke: none alcohol:none drugs: none - Constitutional Constitutional: Reports sweats - EENT Eyes: bilateral blurred vision, bilateral pain Ears: deny: decreased hearing, tinnitus Ears, nose, mouth and throat: Reports headache - Breasts Breasts: bilateral: as per HPI - Cardiovascular Cardiovascular: Reports shortness of breath, Denies chest pain - Respiratory Comment: asthma in the past Respiratory: Denies cough, Denies 7 - Gastrointestinal Comment: gastritis Gastrointestinal: Reports constipation, Reports diarrhea - Genitourinary (Female) Comment: spotting Genitourinary: Reports dysuria, Reports hematuria - Menstruation Menstruation: Reports period spotting - Musculoskeletal Musculoskeletal: Reports myalgias - Integumentary Integumentary: Reports pruritus, Reports rash - Neurological Neurological: Reports numbness, Reports weakness - Psychiatric Psychiatric: Reports depression, Denies anxiety - Endocrine Endocrine: Reports weight change, Denies fatigue - Hematologic/Lymphatic Hematologic/Lymphatic: Reports easy bleeding - Allergic/Immunologic Allergic/Immunologic: Reports seasonal allergies Past Medical History Past Medical History: Asthma Additional Past Medical History / Comment(s): Bronchitis, kidney stones, bilateral knees "weak and swollen", pt states she retains fluid in her body, enlarged heart History of Any Multi-Drug Resistant Organisms: None Reported Past Surgical History: Cholecystectomy, Hernia Repair, Tubal Ligation Additional Past Surgical History / Comment(s): Surgery for prolapsed uterus, umbilical hernia repaie, open cholecystectomy, kidney stone removal Past Anesthesia/Blood Transfusion Reactions: Motion Sickness, Postoperative Nausea & Vomiting (PONV) Past Psychological History: No Psychological Hx Reported Additional Psychological History / Comment(s): Pt resides in an apartment alone. She is originally from [facility] and has lived in [place] for many years. She speaks and reads in Peruvian but perfers to read in Egyptian. She does not drive. She gets to [facility] by way of a friend or her sister. She is medically disabled. Smoking Status: Never smoker Past Alcohol Use History: None Reported Past Drug Use History: None Reported - Past Family History Mother Family Medical History: Asthma, Diabetes Mellitus Additional Family Medical History / Comment(s): Mother from asthma at the age of 46yrs. Father Family Medical History: No Reported History, Unable to Obtain Medications and Allergies Home Medications Medication Instructions Recorded Confirmed Type Multivitamins, Thera [Multivitamin 1 tab PO DAILY 06/24/19 08/21/19 History (formulary)] Allergies Allergy/AdvReac Type Severity Reaction Status Date / Time aspirin Allergy Rash/Hives Verified 08/21/19 12:46 capsaicin [From Dolorac] Allergy Rapid Verified 08/21/19 12:46 Heart Rate hydromorphone Allergy Rash/Hives Verified 08/21/19 12:46 ketorolac Allergy Rapid Verified 08/21/19 12:46 Heart Rate NSAIDS (Non-Steroidal Allergy Rash/Hives Verified 08/21/19 12:46 Anti-Inflamma ondansetron [From Zofran] Allergy Rapid Verified 08/21/19 12:46 Heart Rate Penicillins Allergy Rash/Hives Verified 08/21/19 12:46 tromethamine Allergy Rapid Verified 08/21/19 12:46 Heart Rate Surgical - Exam Vital Signs Temp Pulse Resp BP Pulse Ox 97.7 F 113 H 18 156/92 95 08/21/19 12:59 08/21/19 12:59 08/21/19 12:59 08/21/19 12:59 08/21/19 12:59 BMI 37.2 - General well developed, well nourished, no distress - Eyes normal ocular movement - ENT normal pinna, no hearing loss - Neck no masses, trachea midline - Respiratory normal respiratory effort, clear to auscultation - Cardiovascular Rhythm: regular Heart Sounds: normal: S1, S2 - Abdomen Abdomen: soft, non tender, no guarding, no rigid, no rebound - Integumentary normal turgor - Neurologic no disoriented, no combative - Musculoskeletal normal gait, normal posture - Psychiatric oriented to time, oriented to person, oriented to place, speech is normal, memory intact breast exam: bra 44D Ptosis grade 3 Right breast: Multiple positional exam fibrocystic changes Right axilla: No adenopathy of concern Left breast: Multi-positional exam fibrocystic changes no dominant masses or nodules of concern dense tissue, no nipple abnormalities or discharge Left axilla no adenopathy of concern The patient complains of back pain related to the size of her breast and shoulder notching Skin evaluation: Dark nevus right lateral breast, under right breast, between right and left breast Results Impression: 1. Ultrasound abnormality right breast 2. Fibrocystic changes breast 3. Mastodynia spontaneously improves 4. Macromastia with back pain and shoulder notching 5. Assessment and Plan Assessment: Impression: 1. Ultrasound abnormality right breast 2. Fibrocystic changes breast 3. Mastodynia spontaneously improves 4. Macromastia with back pain and shoulder notching 5. vaginal spotting Plan: 1. Ultrasound-guided core biopsy of right breast 2. Fibrocystic breast pain recommend primrose oil 3. Abnormal spotting recommend appointment with [facility]/Dr. Villafuerte 4. Macromastia with back pain and shoulder notching consider breast reduction CC: Dr. Marzena Mclaughlin
== END | disposition home or self-care (01) ==
LOC: WWCWWP 12:34
PROVIDERS: ATTEND Surgery
DX: Z53.9 Procedure and treatment not carried out, unspecified reason (principal)

== ENCOUNTER → 2019-08-26 | Day surgery (SDC) | payer OTHER ==
[2019-08-26 14:14] VITALS: BP 130/88; PULSE 88; RESP 16; TEMP 97.7; BMI 35.6
--- NOTE | 2019-08-26 15:31 | USB ---
EXAMINATION TYPE: US discontinued breast core RT DATE OF EXAM: 08/26/2019 COMPARISON: Right breast ultrasound dated 08/01/2019 HISTORY: Abnormal right breast ultrasound. TECHNIQUE/FINDINGS: Targeted ultrasound was performed of the right breast with attention to the 11:00 position. Scanning was performed during real time by the pain management nurse practitioner and myself, Dr. Sylvester. No reprod ucible mass at the 11:00 position was seen. Focal areas of dense tissue are most notable at the 11:00 position with heterogeneity. This was discussed with the patient as well as recommendation for follo w-up 6 month ultrasound of the right. IMPRESSION: BI-RADS 3-probably benign. Targeted right breast ultrasound at the 11:00 position will be performed in 6 months.
== END ==
LOC: RADUSWWP 13:58
PROVIDERS: ATTEND Surgery
DX: R92.8 Other abnormal and inconclusive findings on diagnostic imaging of breast (principal)

== ENCOUNTER → 2019-09-25 | Outpatient (CLI) | payer OTHER ==
[2019-09-26 11:19] LABS: Beef IgE <0.10 kU/L (<0.10); Beef IgE Class CLASS 0; Pork IgE Class CLASS 0
== END | disposition home or self-care (01) ==
LOC: LABWHC1 15:19
PROVIDERS: ATTEND Allergy & Immunology
DX: L27.2 Dermatitis due to ingested food (principal)
CPT/HCPCS: 36415; 82785; 86003

== ENCOUNTER 2019-10-02 13:59 | Emergency (ER) | payer OTHER ==
[2019-10-02 15:51] LABS: Basophils # (A) 0.1 k/uL (0-0.2); Basophils % (A) 2 %; Eosinophils # (A) 0.1 k/uL (0-0.7); Eosinophils % (A) 1 %; HCT 45.3 % (34.0-46.0); HGB 14.3 gm/dL (11.4-16.0); Lymphocytes # (A) 2.1 k/uL (1.0-4.8); Lymphocytes % (A) 28 %; MCH 27.5 pg (25.0-35.0); MCHC 31.6 g/dL (31.0-37.0); Mean Platelet Volume 8.1; Monocytes # (A) 0.4 k/uL (0-1.0); Monocytes % (A) 5 %; Neutrophils # (A) 4.6 k/uL (1.3-7.7); Neutrophils % (A) 62 %; Platelet Count 307 k/uL (150-450); RBC 5.21 m/uL (3.80-5.40); RDW 13.3 % (11.5-15.5); WBC 7.3 k/uL (3.8-10.6)
[2019-10-02 15:52] LABS: Appearance,Urine Clear (Clear); Bilirubin,Urine Negative (Negative); Blood,Urine Negative (Negative); Color,Urine Light Yellow; Glucose,Urine (UA) Negative (Negative); Ketones,Urine Trace (Negative); Leukocyte Esterase,Urine Negative (Negative); Nitrite,Urine Negative (Negative); PH, Urine 6.5 (5.0-8.0); Protein,Urine Negative (Negative); Specific Gravity,Urine 1.013 (1.001-1.035); Urobilinogen,Urine <2.0 mg/dL (<2.0)
[2019-10-02 16:00] LABS: ALT 34 U/L (4-34); AST 27 U/L (14-36); African American GFR (CKD) >90 (>60 ml/min/1.73 sqM); Albumin 4.7 g/dL (3.5-5.0); Alkaline Phosphatase 106 U/L (38-126); Amylase 49 U/L (30-110); Anion Gap 9 mmol/L; Blood Urea Nitrogen 17 mg/dL (7-17); Carbon Dioxide 28 mmol/L (22-30); Chloride 103 mmol/L (98-107); Glucose 91 mg/dL (74-99); Non-African American GFR(CKD) >90 (>60 ml/min/1.73 sqM); Potassium 4.4 mmol/L (3.5-5.1); Sodium 140 mmol/L (137-145); Total Bilirubin 0.6 mg/dL (0.2-1.3); Total Protein 7.9 g/dL (6.3-8.2)
--- NOTE | 2019-10-02 16:38 | ED ---
General Adult HPI - General Chief complaint: Abdominal Pain Stated complaint: Abd/Lower Back Pain Source: patient, RN notes reviewed Mode of arrival: ambulatory Limitations: no limitations - History of Present Illness Initial comments: 54-year-old female with a past medical history of asthma, bronchitis, kidney stones presents to the emergency department for a chief complaint of suprapubic pain. Patient states she has had suprapubic pain for the past 3 months. Patient states this has been worsening steadily. States that it hurts more when she urinates. Patient denies fevers or chills. Denies diarrhea.Patient has no other complaints at this time including shortness of breath, chest pain, nausea or vomiting, headache, or visual changes. - Related Data Home Medications Medication Instructions Recorded Confirmed Multivitamins, Thera [Multivitamin 1 tab PO DAILY 06/24/19 08/26/19 (formulary)] Allergies Allergy/AdvReac Type Severity Reaction Status Date / Time aspirin Allergy Rash/Hives Verified 08/21/19 12:46 capsaicin [From Dolorac] Allergy Rapid Verified 08/21/19 12:46 Heart Rate hydromorphone Allergy Rash/Hives Verified 08/21/19 12:46 ketorolac Allergy Rapid Verified 08/21/19 12:46 Heart Rate NSAIDS (Non-Steroidal Allergy Rash/Hives Verified 08/21/19 12:46 Anti-Inflamma ondansetron [From Zofran] Allergy Rapid Verified 08/21/19 12:46 Heart Rate Penicillins Allergy Rash/Hives Verified 08/21/19 12:46 tromethamine Allergy Rapid Verified 08/21/19 12:46 Heart Rate Review of Systems ROS Statement: Those systems with pertinent positive or pertinent negative responses have been documented in the HPI. ROS Other: All systems not noted in ROS Statement are negative. Past Medical History Past Medical History: Asthma Additional Past Medical History / Comment(s): Bronchitis, kidney stones, bilateral knees "weak and swollen", pt states she retains fluid in her body, enlarged heart History of Any Multi-Drug Resistant Organisms: None Reported Past Surgical History: Cholecystectomy, Hernia Repair, Tubal Ligation Additional Past Surgical History / Comment(s): Surgery for prolapsed uterus, umbilical hernia repaie, open cholecystectomy, kidney stone removal Past Anesthesia/Blood Transfusion Reactions: Motion Sickness, Postoperative Nausea & Vomiting (PONV) Past Psychological History: No Psychological Hx Reported Smoking Status: Never smoker Past Alcohol Use History: None Reported Past Drug Use History: None Reported - Past Family History Mother Family Medical History: Asthma, Diabetes Mellitus Additional Family Medical History / Comment(s): Mother from asthma at the age of 46yrs. Father Family Medical History: No Reported History, Unable to Obtain General Exam Limitations: no limitations General appearance: alert, in no apparent distress Head exam: Present: atraumatic, normocephalic, normal inspection Eye exam: Present: normal appearance, PERRL, EOMI. Absent: scleral icterus, conjunctival injection, periorbital swelling ENT exam: Present: normal exam, mucous membranes moist Neck exam: Present: normal inspection, full ROM. Absent: tenderness, meningismus, lymphadenopathy Respiratory exam: Present: normal lung sounds bilaterally. Absent: respiratory distress, wheezes, rales, rhonchi, stridor Cardiovascular Exam: Present: regular rate, normal rhythm, normal heart sounds. Absent: systolic murmur, diastolic murmur, rubs, gallop, clicks GI/Abdominal exam: Present: soft, tenderness (generalized lower abdominal tenderness without guarding or rebound), normal bowel sounds. Absent: distended, guarding, rebound, rigid Course Vital Signs 10/02/19 14:29 Temperature 98.2 F Pulse Rate 83 Respiratory 19 Rate Blood Pressure 146/105 O2 Sat by Pulse 97 Oximetry Medical Decision Making - Medical Decision Making Damage generally unremarkable. Mild lower abdominal tenderness which is generalized in nature. Vitals are stable. Patient mildly hypertensive likely secondary to pain. CBC CMP unremarkable. Urinalysis trace ketones, patient given fluids. Post void bladder scan was normal with a post void residual of [address] abdomen and pelvis with contrast is a negative exam without sign of acute abdomen. Normal appendix.at this point patient can be discharged home to follow up with primary care as I do not see an emergent cause for these symptoms. She may benefit from urology referral which was discussed with her. Patient will return here if she has any worsening symptoms. - Lab Data Result diagrams: 10/02/19 15:38 10/02/19 15:38 Lab Results 10/02/19 10/02/19 10/02/19 Range/Units 15:38 15:38 15:38 WBC 7.3 (3.8-10.6) k/uL RBC 5.21 (3.80-5.40) m/uL Hgb 14.3 (11.4-16.0) gm/dL Hct 45.3 (34.0-46.0) % MCV 87.0 (80.0-100.0) fL MCH 27.5 (25.0-35.0) pg MCHC 31.6 (31.0-37.0) g/dL RDW 13.3 (11.5-15.5) % Plt Count 307 (150-450) k/uL Neutrophils % 62 % Lymphocytes % 28 % Monocytes % 5 % Eosinophils % 1 % Basophils % 2 % Neutrophils # 4.6 (1.3-7.7) k/uL Lymphocytes # 2.1 (1.0-4.8) k/uL Monocytes # 0.4 (0-1.0) k/uL Eosinophils # 0.1 (0-0.7) k/uL Basophils # 0.1 (0-0.2) k/uL Sodium 140 (137-145) mmol/L Potassium 4.4 (3.5-5.1) mmol/L Chloride 103 (98-107) mmol/L Carbon Dioxide 28 (22-30) mmol/L Anion Gap 9 mmol/L BUN 17 (7-17) mg/dL Creatinine 0.72 (0.52-1.04) mg/dL Est GFR (CKD-EPI)AfAm >90 (>60 ml/min/1.73 sqM) Est GFR (CKD-EPI)NonAf >90 (>60 ml/min/1.73 sqM) Glucose 91 (74-99) mg/dL Calcium 10.0 (8.4-10.2) mg/dL Total Bilirubin 0.6 (0.2-1.3) mg/dL AST 27 (14-36) U/L ALT 34 (4-34) U/L Alkaline Phosphatase 106 (38-126) U/L Total Protein 7.9 (6.3-8.2) g/dL Albumin 4.7 (3.5-5.0) g/dL Amylase 49 (30-110) U/L Lipase 176 (23-300) U/L Urine Color Light Yellow Urine Appearance Clear (Clear) Urine pH 6.5 (5.0-8.0) Ur Specific [place] 1.013 (1.001-1.035) Urine Protein Negative (Negative) Urine Glucose (UA) Negative (Negative) Urine Ketones Trace H (Negative) Urine Blood Negative (Negative) Urine Nitrite Negative (Negative) Urine Bilirubin Negative (Negative) Urine Urobilinogen <2.0 (<2.0) mg/dL Ur Leukocyte Esterase Negative (Negative) Disposition Clinical Impression: Dysuria Disposition: HOME SELF-CARE Condition: Good Instructions (If sedation given, give patient instructions): Dysuria (ED) Additional Instructions: please follow-up with your primary care provider in the next 1-2 days. You may benefit from a urology consultation. Please discuss this with your doctor. Return to the emergency department if you have any worsening symptoms. Is patient prescribed a controlled substance at d/c from ED?: No Referrals: Marzena Mclaughlin MD [Primary Care Provider] - 1-2 days Time of Disposition: 18:22
--- NOTE | 2019-10-02 18:06 | CT ---
EXAMINATION TYPE: CT abdomen pelvis w con DATE OF EXAM: 10/02/2019 COMPARISON: 06/24/2019 HISTORY: Flank, pelvic and low back pain CT DLP: 1563.1 mGycm Automated exposure control for dose reduction was used. CONTRAST: Performed with IV Contrast, patient injected with 100 mL of Isovue 300. Lung bases are clear of consolidation. There is no pleural effusion. Heart size is normal. There are clips from cholecystectomy. Bile ducts are not dilated. Spleen is intact. There is no pancr eatic mass. There is no adrenal mass. Kidneys show satisfactory contrast opacification. There is no hydronephrosi s. There is 4 mm calculus lower pole left kidney. Ureters are not dilated. There is no retroperitonea l adenopathy. Appendix appears normal. There is no ascites or free air. There is no sign of a bowel o bstruction. There is no mesenteric edema. Lumbar vertebra have fairly normal spacing and alignment. Posterior elements are intact. Bony pelvis appears intact. I see no bony destructive process. Impression negative exam. No sign of acute abdomen and pelvis. 1 cm cyst in the right lobe of the liver unchang ed. There is clearing of the inflammatory changes and wall thickening of multiple loops of small elisa l in the lower abdomen compared to old exam. Normal appendix.
[2019-10-02 18:55] VITALS: BP 138/90; PULSE 84; RESP 18; TEMP 98
== END 2019-10-02 18:55 | disposition home or self-care (01) ==
LOC: EC 13:59
DX: R30.0 Dysuria (principal); R03.0 Elevated blood-pressure reading, without diagnosis of hypertension; Z88.6 Allergy status to analgesic agent; Z88.0 Allergy status to penicillin; Z88.5 Allergy status to narcotic agent; Z88.8 Allergy status to other drugs, medicaments and biological substances
CPT/HCPCS: 36415; 80053; 82150; 83690; 85025; 81003; 74177; 99284; Q9967

== ENCOUNTER → 2021-05-11 | Outpatient (CLI) | payer OTHER ==
--- NOTE | 2021-05-12 15:33 | XR ---
EXAMINATION TYPE: XR chest 2V DATE OF EXAM: 05/12/2021 COMPARISON: 07/19/2019 INDICATION: Lower extremity swelling TECHNIQUE: Frontal and lateral views of the chest are obtained. FINDINGS: The heart size is normal. The pulmonary vasculature is normal. The lungs are clear. IMPRESSION: 1. No acute pulmonary process.
--- NOTE | 2021-05-12 15:36 | XR ---
EXAMINATION TYPE: XR knee limited bilateral DATE OF EXAM: 05/12/2021 COMPARISON: None HISTORY: Pain and swelling TECHNIQUE: Bilateral knees are examined in 2 projections each. FINDINGS: Left knee: Mild medial tibial plateau spurring is present on the left. No joint effusion is evident. Posterior patellar spurs are present on the left superior and inferior patella. Right knee: Medial tibial plateau and femoral condylar spurring is present. Posterior superior patell ar spurring is present. Small right knee joint effusion may be present. IMPRESSION: 1. Mild degenerative changes bilateral knees. 2. Small right knee joint effusion may be present. 3. MRI can be performed if additional workup of the findings would be of benefit.
== END | disposition home or self-care (01) ==
LOC: RADXRMAIN 16:53
PROVIDERS: ATTEND Family Medicine
DX: M16.0 Bilateral primary osteoarthritis of hip (principal); M79.89 Other specified soft tissue disorders
CPT/HCPCS: 71046

== ENCOUNTER → 2021-05-12 | Outpatient (CLI) | payer OTHER ==
--- NOTE | 2021-05-12 14:19 | US ---
EXAMINATION TYPE: US venous doppler duplex LE DATE OF EXAM: 05/12/2021 9:52 AM COMPARISON: NONE CLINICAL HISTORY: M79.89 Leg Swelling. edema SIDE PERFORMED: Bilateral TECHNIQUE: The lower extremity deep venous system is examined utilizing real time linear array sonog cedrick with graded compression, doppler sonography and color-flow sonography. VESSELS IMAGED: Common Femoral Vein Deep Femoral Vein Greater Saphenous Vein * Femoral Vein Popliteal Vein Small Saphenous Vein * Proximal Calf Veins (* superficial vessels) Right Leg: Negative for DVT Left Leg: Negative for DVT IMPRESSION: 1 bilateral lower extremity ultrasound negative for deep venous thrombosis.
== END | disposition home or self-care (01) ==
LOC: RADUSWWP 08:49
PROVIDERS: ATTEND Family Medicine
DX: R60.0 Localized edema (principal)
CPT/HCPCS: 93970

== ENCOUNTER 2022-02-22 20:57 | Emergency (ER) | payer OTHER ==
[2022-02-22] MEDS ORDERED: SODIUM CHLORIDE 0.9% 1,000 ML IV STA (23:09)
--- NOTE | 2022-02-22 23:31 | ED ---
Female Urogenital HPI - General Chief complaint: Vaginal Bleeding Stated complaint: Vaginal bleeding Time Seen by Provider: 02/22/22 22:54 Source: patient Mode of arrival: ambulatory - History of Present Illness Initial comments: This is a pleasant 56-year-old female who presents to emergency department stating that she has irritation in her vaginal area. Patient states that she believes her urinary bladder is prolapsing. Patient states she saw her regular physician today and was referred to a anode adjuster. It was previously assessed by a anode adjuster by the name of Dr. Pillai, patient states that he referred her to Dr. Alexander who works out of [place]. Dr. Alexander is the anode adjuster that performed a bladder suspension on her in 2016. Sounds as if both these doctors work out of other facilities. Patient states that she has been getting dysuria with some lower abdominal discomfort. Denies nausea or vomiting. No specific flank pain. No headache, no fever or chills, no changes in vision or hearing, no sore throat or difficulty with speech, no neck pain, no chest pain or shortness of breath,no nausea or vomiting, no changes in bowel movements, no numbness or tingling, no extremity pain, no skin rashes or lesions. - Related Data Home Medications Medication Instructions Recorded Confirmed Multivitamins, Thera [Multivitamin 1 tab PO DAILY 06/24/19 08/26/19 (formulary)] Previous Rx's Medication Instructions Recorded Acetaminophen [Tylenol] 500 mg PO Q4-6H PRN #24 tab 02/23/22 Albuterol Sulfate [Albuterol 2 puff PO Q6H #8.5 gm 02/23/22 Sulfate Hfa] Nitrofurantoin Monohyd/M-Cryst 100 mg PO Q12HR #14 cap 02/23/22 [Macrobid] Allergies Allergy/AdvReac Type Severity Reaction Status Date / Time aspirin Allergy Rash/Hives Verified 02/22/22 22:24 capsaicin [From Dolorac] Allergy Rapid Verified 02/22/22 22:24 Heart Rate hydromorphone Allergy Rash/Hives Verified 02/22/22 22:24 ketorolac Allergy Rapid Verified 02/22/22 22:24 Heart Rate morphine Allergy Rapid Verified 02/22/22 23:58 Heart Rate NSAIDS (Non-Steroidal Allergy Rash/Hives Verified 02/22/22 22:24 Anti-Inflamma ondansetron [From Zofran] Allergy Rapid Verified 02/22/22 22:24 Heart Rate Penicillins Allergy Rash/Hives Verified 02/22/22 22:24 tromethamine Allergy Rapid Verified 02/22/22 22:24 Heart Rate Review of Systems ROS Statement: Those systems with pertinent positive or pertinent negative responses have been documented in the HPI. ROS Other: All systems not noted in ROS Statement are negative. Past Medical History Past Medical History: Asthma Additional Past Medical History / Comment(s): Bronchitis, kidney stones, bilateral knees "weak and swollen", pt states she retains fluid in her body, enlarged heart History of Any Multi-Drug Resistant Organisms: None Reported Past Surgical History: Cholecystectomy, Hernia Repair, Hysterectomy, Tubal Ligation Additional Past Surgical History / Comment(s): Surgery for prolapsed uterus, umbilical hernia repaie, open cholecystectomy, kidney stone removal Past Anesthesia/Blood Transfusion Reactions: Motion Sickness, Postoperative Nausea & Vomiting (PONV) Past Psychological History: No Psychological Hx Reported Past Alcohol Use History: None Reported Past Drug Use History: None Reported - Past Family History Mother Family Medical History: Asthma, Diabetes Mellitus Additional Family Medical History / Comment(s): Mother from asthma at the age of 46yrs. Father Family Medical History: No Reported History, Unable to Obtain General Exam General appearance: alert, in no apparent distress Head exam: Present: atraumatic, normocephalic, normal inspection Eye exam: Present: normal appearance, PERRL, EOMI. Absent: scleral icterus, conjunctival injection, periorbital swelling ENT exam: Present: normal exam, mucous membranes moist Neck exam: Present: normal inspection. Absent: tenderness, meningismus, lymphadenopathy Respiratory exam: Present: normal lung sounds bilaterally. Absent: respiratory distress, wheezes, rales, rhonchi, stridor Cardiovascular Exam: Present: regular rate, normal rhythm, normal heart sounds. Absent: systolic murmur, diastolic murmur, rubs, gallop, clicks GI/Abdominal exam: Present: soft, normal bowel sounds. Absent: distended, tenderness, guarding, rebound, rigid Rectal exam: Present: normal inspection External exam: Present: normal external exam, other (Chaperoned by female RNYoly). Absent: erythema, swelling, lesions, lacerations, ecchymosis By manual exam: Present: other (Patient does have evidence of minor cystocele and partial vaginal wall prolapse anteriorly on bimanual examination.). Absent: cervical motion tenderness, adnexal tenderness, adnexal mass, uterine enlargement, uterine tenderness Extremities exam: Present: normal inspection, full ROM, normal capillary refill. Absent: tenderness, pedal edema, joint swelling, calf tenderness Back exam: Present: normal inspection Neurological exam: Present: alert, oriented X3, CN II-XII intact Psychiatric exam: Present: normal affect, normal mood Skin exam: Present: warm, dry, intact, normal color. Absent: rash Course Vital Signs 02/22/22 02/23/22 22:21 00:42 Temperature 98.1 F Pulse Rate 103 H 87 Respiratory 18 18 Rate Blood Pressure 159/97 151/89 O2 Sat by Pulse 98 96 Oximetry Medical Decision Making - Medical Decision Making Fabrice presents with symptoms of a cystocele and some mild dysuria. Patient did not seem systemically ill. Vital signs are stable, patient afebrile. Patient's workup was essentially negative. Computed tomography scan was consistent with status post hysterectomy. Bimanual exam does reveal what appears to be a mild cystocele and likely mild vaginal vault prolapse. However this was not external. Urinalysis did have 10 white cells per high-power field with bacteria. I'm going to cover with antibiotics until the patient can get to her anode adjuster, Dr. Casey. She already has an upcoming appointment with his physician who is not on staff at this facility. Patient does have a history of asthma states she's been wheezing from time to time. Patient states she has been out of her inhaler. I did prescribe this as well. No evidence of respiratory distress. Treatment and follow-up discussed in detail with the patient and her registered public surveyor who is with her. They voice understanding. All questions answered The case was discussed in detail with ED attending physician. Presentation, findings, treatment plan discussed in detail. Supervising this is Dr. Lane, - Lab Data Result diagrams: 02/22/22 23:53 02/22/22 23:53 Lab Results 02/22/22 02/22/22 02/22/22 Range/Units 23:53 23:53 23:53 WBC 8.7 (3.8-10.6) k/uL RBC 4.98 (3.80-5.40) m/uL Hgb 13.8 (11.4-16.0) gm/dL Hct 45.3 (34.0-46.0) % MCV 90.9 (80.0-100.0) fL MCH 27.8 (25.0-35.0) pg MCHC 30.6 L (31.0-37.0) g/dL RDW 12.9 (11.5-15.5) % Plt Count 304 (150-450) k/uL MPV 8.3 Neutrophils % 54 % Lymphocytes % 35 % Monocytes % 6 % Eosinophils % 2 % Basophils % 1 % Neutrophils # 4.7 (1.3-7.7) k/uL Lymphocytes # 3.0 (1.0-4.8) k/uL Monocytes # 0.5 (0-1.0) k/uL Eosinophils # 0.2 (0-0.7) k/uL Basophils # 0.1 (0-0.2) k/uL Sodium 138 (137-145) mmol/L Potassium 3.9 (3.5-5.1) mmol/L Chloride 104 (98-107) mmol/L Carbon Dioxide 27 (22-30) mmol/L Anion Gap 7 mmol/L BUN 24 H (7-17) mg/dL Creatinine 0.78 (0.52-1.04) mg/dL Est GFR (CKD-EPI)AfAm >90 (>60 ml/min/1.73 sqM) Est GFR (CKD-EPI)NonAf 86 (>60 ml/min/1.73 sqM) Glucose 105 H (74-99) mg/dL Calcium 9.5 (8.4-10.2) mg/dL Total Bilirubin 0.4 (0.2-1.3) mg/dL AST 25 (14-36) U/L ALT 29 (4-34) U/L Alkaline Phosphatase 94 (38-126) U/L Total Protein 7.6 (6.3-8.2) g/dL Albumin 4.4 (3.5-5.0) g/dL Lipase 201 (23-300) U/L Urine Color Yellow Urine Appearance Clear (Clear) Urine pH 5.0 (5.0-8.0) Ur Specific [place] 1.028 (1.001-1.035) Urine Protein Negative (Negative) Urine Glucose (UA) Negative (Negative) Urine Ketones Negative (Negative) Urine Blood Negative (Negative) Urine Nitrite Negative (Negative) Urine Bilirubin Negative (Negative) Urine Urobilinogen <2.0 (<2.0) mg/dL Ur Leukocyte Esterase Large H (Negative) Urine RBC 2 (0-5) /hpf Urine WBC 10 H (0-5) /hpf Ur Squamous Epith Cells 2 (0-4) /hpf Urine Bacteria Rare H (None) /hpf Urine Mucus Rare H (None) /hpf Disposition Clinical Impression: Cystocele, Vaginal vault prolapse after hysterectomy, History of asthma, Urinary tract infection Disposition: HOME SELF-CARE Condition: Good Instructions (If sedation given, give patient instructions): Urinary Tract Infection in Women (ED), Cystocele (ED) Additional Instructions: take the Tylenol as directed for discomfort. Take the antibiotics as directed. Follow-up with your regular physician. Call in the morning for another appointment. Make sure you follow-up with your anode adjuster, Dr. Casey as planned. Follow-up with your regular physician as directed. Return to the ER immediately if any symptoms worsen, new symptoms arise, or any other problems develop. Prescriptions: Albuterol Sulfate [Albuterol Sulfate Hfa] 2 puff PO Q6H #8.5 gm Nitrofurantoin Monohyd/M-Cryst [Macrobid] 100 mg PO Q12HR #14 cap Acetaminophen [Tylenol] 500 mg PO Q4-6H PRN #24 tab PRN Reason: Pain Is patient prescribed a controlled substance at d/c from ED?: No Referrals: Marzena Mclaughlin MD [Primary Care Provider] - 1-2 days Time of Disposition: 01:22
[2022-02-22] MEDS ORDERED: MORPHINE SULFATE 4 MG/ML SYRINGE IV STA (23:35)
[2022-02-22 23:58] LABS: Basophils # (A) 0.1 k/uL (0-0.2); Basophils % (A) 1 %; Eosinophils # (A) 0.2 k/uL (0-0.7); Eosinophils % (A) 2 %; HCT 45.3 % (34.0-46.0); HGB 13.8 gm/dL (11.4-16.0); Lymphocytes % (A) 35 %; MCH 27.8 pg (25.0-35.0); MCHC 30.6 g/dL (31.0-37.0); MCV 90.9 fL (80.0-100.0); Mean Platelet Volume 8.3; Monocytes # (A) 0.5 k/uL (0-1.0); Monocytes % (A) 6 %; Neutrophils # (A) 4.7 k/uL (1.3-7.7); Neutrophils % (A) 54 %; Platelet Count 304 k/uL (150-450); RBC 4.98 m/uL (3.80-5.40); RDW 12.9 % (11.5-15.5); WBC 8.7 k/uL (3.8-10.6)
[2022-02-22] MEDS ORDERED: ACETAMINOPHEN TAB 500 MG TAB PO STA (23:58)
[2022-02-23 00:07] LABS: ALT 29 U/L (4-34); AST 25 U/L (14-36); African American GFR (CKD) >90 (>60 ml/min/1.73 sqM); Albumin 4.4 g/dL (3.5-5.0); Alkaline Phosphatase 94 U/L (38-126); Anion Gap 7 mmol/L; Blood Urea Nitrogen 24 mg/dL (7-17); Calcium 9.5 mg/dL (8.4-10.2); Carbon Dioxide 27 mmol/L (22-30); Chloride 104 mmol/L (98-107); Glucose 105 mg/dL (74-99); Lipase 201 U/L (23-300); Non-African American GFR(CKD) 86 (>60 ml/min/1.73 sqM); Potassium 3.9 mmol/L (3.5-5.1); Sodium 138 mmol/L (137-145); Total Bilirubin 0.4 mg/dL (0.2-1.3); Total Protein 7.6 g/dL (6.3-8.2)
[2022-02-23 00:10] LABS: Appearance,Urine Clear (Clear); Bacteria,Urine Rare /hpf; Bilirubin,Urine Negative (Negative); Blood,Urine Negative (Negative); Color,Urine Yellow; Glucose,Urine (UA) Negative (Negative); Ketones,Urine Negative (Negative); Leukocyte Esterase,Urine Large (Negative); Mucus,Urine Rare /hpf; Nitrite,Urine Negative (Negative); Protein,Urine Negative (Negative); RBC,Urine 2 /hpf (0-5); Specific Gravity,Urine 1.028 (1.001-1.035); Squamous Epithelial Cell,Urine 2 /hpf (0-4); Urobilinogen,Urine <2.0 mg/dL (<2.0); WBC,Urine 10 /hpf (0-5)
[2022-02-23] MEDS ORDERED: IPRATROPIUM-ALBUTEROL 3 ML NEB INHALATION STA (00:58)
[2022-02-23] MEDS ORDERED: NITROFURANTOIN MONOHYD/M-CRYST 100 MG CAP PO STA (01:00)
--- NOTE | 2022-02-23 01:04 | CT ---
EXAMINATION TYPE: CT abdomen pelvis w con DATE OF EXAM: 02/23/2022 COMPARISON: 10/02/2019 HISTORY: vaginal pain & bleeding. h/o tubal & hysterectomy CT DLP: 1674.7 mGycm Automated exposure control for dose reduction was used. CONTRAST: Performed with IV Contrast, patient injected with 100 mL of Isovue 300. Images obtained from the diaphragm to the floor of the pelvis with IV contrast. The lung bases are clear. No pleural effusion. There is 1 cm cyst in the liver. There are clips from cholecystectomy. Bile ducts are nondilated. Spleen is intact. There is no pancreatic mass. The stomac h is intact. There is no adrenal mass. Kidneys show satisfactory contrast opacification. There is a 1 cm calculus in the lower pole left kidney. Ureters are not dilated. Delayed images show normal renal excretion. T here is no retroperitoneal adenopathy. Bladder distends smoothly. There is no inguinal hernia. Append ix is posterior and appears normal. There is no mesenteric edema. No ascites or free air. No bowel ob struction. There is no evidence of a pelvic mass. There is hysterectomy. Lumbar vertebra have normal alignment. Posterior elements are intact. No compression fracture. Bony p nelly is intact. The hip joints are intact. IMPRESSION: Nonobstructing calculus in the left kidney increased in size compared to old exam. Normal appendix. H ysterectomy noted.
[2022-02-23 01:46] VITALS: BP 120/97; PULSE 88; RESP 26; TEMP 97.6
== END 2022-02-23 01:46 | disposition home or self-care (01) ==
LOC: EC 20:57
DX: N99.3 Prolapse of vaginal vault after hysterectomy (principal); J45.909 Unspecified asthma, uncomplicated; N39.0 Urinary tract infection, site not specified; Z88.0 Allergy status to penicillin; Z88.5 Allergy status to narcotic agent; Z88.6 Allergy status to analgesic agent; Z88.8 Allergy status to other drugs, medicaments and biological substances; Z90.49 Acquired absence of other specified parts of digestive tract; Z90.710 Acquired absence of both cervix and uterus; Z91.018 Allergy to other foods
CPT/HCPCS: 36415; 74177; 80053; 81001; 83690; 85025; 94640; 96360; 99284

== ENCOUNTER 2022-02-28 23:27 | Emergency (ER) | payer OTHER ==
[2022-02-28 23:33] VITALS: RESP 18
--- NOTE | 2022-02-28 23:35 | ED ---
General Adult HPI - General Chief complaint: Extremity Problem,Nontraumatic Stated complaint: Weakness Time Seen by Provider: 02/28/22 23:32 Source: patient, RN notes reviewed Limitations: language barrier - History of Present Illness Initial comments: Pleasant 56-year-old female presents immersed by with intermittent chest pains as as read by palpation. This is in the lower anterior chest wall. Also has peripheral edema which she states is getting worse. Patient states she's had this before but is worse than usual. No headache, no fever or chills, no changes in vision or hearing, no sore throat or difficulty with speech, no neck pain, no chest pain or shortness of breath, no abdominal pain, no nausea or vomiting, no changes in urination or bowel movements, no numbness or tingling, no extremity pain, no skin rashes or lesions. - Related Data Home Medications Medication Instructions Recorded Confirmed Multivitamins, Thera [Multivitamin 1 tab PO DAILY 06/24/19 08/26/19 (formulary)] Previous Rx's Medication Instructions Recorded Acetaminophen [Tylenol] 500 mg PO Q4-6H PRN #24 tab 02/23/22 Albuterol Sulfate [Albuterol 2 puff PO Q6H #8.5 gm 02/23/22 Sulfate Hfa] Nitrofurantoin Monohyd/M-Cryst 100 mg PO Q12HR #14 cap 02/23/22 [Macrobid] Allergies Allergy/AdvReac Type Severity Reaction Status Date / Time aspirin Allergy Rash/Hives Verified 02/28/22 23:34 capsaicin [From Dolorac] Allergy Rapid Verified 02/28/22 23:34 Heart Rate hydromorphone Allergy Rash/Hives Verified 02/28/22 23:34 ketorolac Allergy Rapid Verified 02/28/22 23:34 Heart Rate morphine Allergy Rapid Verified 02/28/22 23:34 Heart Rate NSAIDS (Non-Steroidal Allergy Rash/Hives Verified 02/28/22 23:34 Anti-Inflamma ondansetron [From Zofran] Allergy Rapid Verified 02/28/22 23:34 Heart Rate Penicillins Allergy Rash/Hives Verified 02/28/22 23:34 tromethamine Allergy Rapid Verified 02/28/22 23:34 Heart Rate Review of Systems ROS Statement: Those systems with pertinent positive or pertinent negative responses have been documented in the HPI. ROS Other: All systems not noted in ROS Statement are negative. Past Medical History Past Medical History: Asthma Additional Past Medical History / Comment(s): Bronchitis, kidney stones, bilateral knees "weak and swollen", pt states she retains fluid in her body, enlarged heart History of Any Multi-Drug Resistant Organisms: None Reported Past Surgical History: Cholecystectomy, Hernia Repair, Hysterectomy, Tubal Ligation Additional Past Surgical History / Comment(s): Surgery for prolapsed uterus, umbilical hernia repaie, open cholecystectomy, kidney stone removal Past Anesthesia/Blood Transfusion Reactions: Motion Sickness, Postoperative Nausea & Vomiting (PONV) Past Psychological History: No Psychological Hx Reported Smoking Status: Never smoker Past Alcohol Use History: None Reported Past Drug Use History: None Reported - Past Family History Mother Family Medical History: Asthma, Diabetes Mellitus Additional Family Medical History / Comment(s): Mother from asthma at the age of 46yrs. Father Family Medical History: No Reported History, Unable to Obtain General Exam Limitations: language barrier General appearance: alert, in no apparent distress Head exam: Present: atraumatic, normocephalic, normal inspection Eye exam: Present: normal appearance, PERRL, EOMI. Absent: scleral icterus, conjunctival injection, periorbital swelling ENT exam: Present: normal exam, normal oropharynx, mucous membranes moist. Absent: mucous membranes dry Neck exam: Present: normal inspection, full ROM. Absent: tenderness, meningismus, lymphadenopathy Respiratory exam: Present: normal lung sounds bilaterally, chest wall tenderness. Absent: respiratory distress, wheezes, rales, rhonchi, stridor, accessory muscle use, decreased breath sounds, prolonged expiratory Cardiovascular Exam: Present: regular rate, normal rhythm, normal heart sounds. Absent: bradycardia, tachycardia, systolic murmur, diastolic murmur, rubs, gallop, clicks GI/Abdominal exam: Present: soft, normal bowel sounds. Absent: distended, tenderness, guarding, rebound, rigid Extremities exam: Present: normal inspection, full ROM, normal capillary refill, pedal edema (Scant), other (No evidence of infectious process. Pedal pulses are intact. Range of motion normal, strength normal). Absent: tenderness, joint swelling, calf tenderness Back exam: Present: normal inspection. Absent: tenderness, vertebral tender ness, rash noted Neurological exam: Present: alert, oriented X3, CN II-XII intact, motor sensory deficit, reflexes normal (DTRs are intact.), other (Great toe extensor strength intact) Psychiatric exam: Present: normal affect, normal mood Skin exam: Present: warm, dry, intact, normal color. Absent: rash, cyanosis, diaphoretic, erythema, urticaria, vesicles, petechiae, pallor, mottled, abrasion Course Vital Signs 02/28/22 23:30 Temperature 98 F Pulse Rate 96 Respiratory 18 Rate Blood Pressure 148/97 O2 Sat by Pulse 98 Oximetry - Reevaluation(s) Reevaluation #1: 03/01/22 02:34 Medical record is reviewed Symptoms are improved here in the emergency department Patient is informed of results and questions answered Patient in no distress Reevaluation #2: 03/01/22 04:08 Medical record is reviewed Symptoms are improved here in the emergency department Patient is informed of results and questions answered Patient in no distress 03/01/22 04:27 Symptoms are mildly improved. Patient now relaying that she has had pain in her legs for about 2 months. She is describing a burning-type pain consistent with neuropathy. No problems with bowel movements or urination. Patient is able to ambulate. EKG Findings - EKG Comments: EKG Findings:: EKG done at 2349 and read by the ED attending physician reveals sinus rhythm with a rate of 85. Normal intervals. This criteria for LVH. No e vidence of acute ST or T-wave changes. Normal axis. Medical Decision Making - Medical Decision Making Patient had 2 negative troponins here. Negative d-dimer. Chest x-ray was clear. Symptoms consistent with mild peripheral edema. Patient presentation not consistent with infectious process. We'll have the patient treat with conservative therapy. Elevation, compression stockings, follow-up with regular physician. Patient had reproducible chest wall pain. Not consistent with cardiac disease. The case was discussed in detail with ED attending physician. Presentation, findings, treatment plan discussed in detail. Patient was told to return to the ER for any signs or symptoms worsen. Told to return immediately if any other problems arise. All questions answered. Treatment plan discussed. Patient in agreement Every effort has been made to ensure accuracy of this dictation. However, due to the limitations of electronic medical records and dictation devices, errors in charting still occur. On recheck, the patient describing symptoms consistent with neuropathy. These up and going on for 2 months according to family. I did agree to give the patient a starter pack of Tylenol with Codeine. We'll try one dose of Neurontin. Patient has an appointment later today with her primary care physician. There is no evidence of bowel or bladder problems. No evidence of infectious process. Pedal pulses are 2+ out of 4. Unemployment Inspector Dr. Perkins - Lab Data Result diagrams: 02/28/22 23:53 02/28/22 23:49 Lab Results 02/28/22 02/28/22 02/28/22 Range/Units 23:49 23:49 23:49 WBC (3.8-10.6) k/uL RBC (3.80-5.40) m/uL Hgb (11.4-16.0) gm/dL Hct (34.0-46.0) % MCV (80.0-100.0) fL MCH (25.0-35.0) pg MCHC (31.0-37.0) g/dL RDW (11.5-15.5) % Plt Count (150-450) k/uL MPV Neutrophils % % Lymphocytes % % Monocytes % % Eosinophils % % Basophils % % Neutrophils # (1.3-7.7) k/uL Lymphocytes # (1.0-4.8) k/uL Monocytes # (0-1.0) k/uL Eosinophils # (0-0.7) k/uL Basophils # (0-0.2) k/uL PT (9.0-12.0) sec INR (<1.2) APTT (22.0-30.0) sec D-Dimer (<0.60) mg/L FEU Sodium 141 (137-145) mmol/L Potassium 4.0 (3.5-5.1) mmol/L Chloride 105 (98-107) mmol/L Carbon Dioxide 30 (22-30) mmol/L Anion Gap 6 mmol/L BUN 22 H (7-17) mg/dL Creatinine 0.81 (0.52-1.04) mg/dL Est GFR (CKD-EPI)AfAm >90 (>60 ml/min/1.73 sqM) Est GFR (CKD-EPI)NonAf 83 (>60 ml/min/1.73 sqM) Glucose 108 H (74-99) mg/dL Calcium 9.2 (8.4-10.2) mg/dL Magnesium 2.1 (1.6-2.3) mg/dL Total Bilirubin 0.2 (0.2-1.3) mg/dL AST 27 (14-36) U/L ALT 26 (4-34) U/L Alkaline Phosphatase 83 (38-126) U/L Troponin I <0.012 (0.000-0.034) ng/mL NT-Pro-B Natriuret Pep 37 pg/mL Total Protein 7.4 (6.3-8.2) g/dL Albumin 4.5 (3.5-5.0) g/dL Lipase 157 (23-300) U/L Coronavirus (PCR) (Not Detectd) 02/28/22 02/28/22 02/28/22 Range/Units 23:53 23:53 23:58 WBC 8.4 (3.8-10.6) k/uL RBC 4.76 (3.80-5.40) m/uL Hgb 13.3 (11.4-16.0) gm/dL Hct 42.7 (34.0-46.0) % MCV 89.6 (80.0-100.0) fL MCH 27.9 (25.0-35.0) pg MCHC 31.2 (31.0-37.0) g/dL RDW 13.0 (11.5-15.5) % Plt Count 279 (150-450) k/uL MPV 8.1 Neutrophils % 60 % Lymphocytes % 28 % Monocytes % 7 % Eosinophils % 2 % Basophils % 1 % Neutrophils # 5.1 (1.3-7.7) k/uL Lymphocytes # 2.4 (1.0-4.8) k/uL Monocytes # 0.6 (0-1.0) k/uL Eosinophils # 0.2 (0-0.7) k/uL Basophils # 0.1 (0-0.2) k/uL PT 10.2 (9.0-12.0) sec INR 0.9 (<1.2) APTT 24.9 (22.0-30.0) sec D-Dimer 0.55 (<0.60) mg/L FEU Sodium (137-145) mmol/L Potassium (3.5-5.1) mmol/L Chloride (98-107) mmol/L Carbon Dioxide (22-30) mmol/L Anion Gap mmol/L BUN (7-17) mg/dL Creatinine (0.52-1.04) mg/dL Est GFR (CKD-EPI)AfAm (>60 ml/min/1.73 sqM) Est GFR (CKD-EPI)NonAf (>60 ml/min/1.73 sqM) Glucose (74-99) mg/dL Calcium (8.4-10.2) mg/dL Magnesium (1.6-2.3) mg/dL Total Bilirubin (0.2-1.3) mg/dL AST (14-36) U/L ALT (4-34) U/L Alkaline Phosphatase (38-126) U/L Troponin I (0.000-0.034) ng/mL NT-Pro-B Natriuret Pep pg/mL Total Protein (6.3-8.2) g/dL Albumin (3.5-5.0) g/dL Lipase (23-300) U/L Coronavirus (PCR) Not Detected (Not Detectd) 03/01/22 Range/Units 03:05 WBC (3.8-10.6) k/uL RBC (3.80-5.40) m/uL Hgb (11.4-16.0) gm/dL Hct (34.0-46.0) % MCV (80.0-100.0) fL MCH (25.0-35.0) pg MCHC (31.0-37.0) g/dL RDW (11.5-15.5) % Plt Count (150-450) k/uL MPV Neutrophils % % Lymphocytes % % Monocytes % % Eosinophils % % Basophils % % Neutrophils # (1.3-7.7) k/uL Lymphocytes # (1.0-4.8) k/uL Monocytes # (0-1.0) k/uL Eosinophils # (0-0.7) k/uL Basophils # (0-0.2) k/uL PT (9.0-12.0) sec INR (<1.2) APTT (22.0-30.0) sec D-Dimer (<0.60) mg/L FEU Sodium (137-145) mmol/L Potassium (3.5-5.1) mmol/L Chloride (98-107) mmol/L Carbon Dioxide (22-30) mmol/L Anion Gap mmol/L BUN (7-17) mg/dL Creatinine (0.52-1.04) mg/dL Est GFR (CKD-EPI)AfAm (>60 ml/min/1.73 sqM) Est GFR (CKD-EPI)NonAf (>60 ml/min/1.73 sqM) Glucose (74-99) mg/dL Calcium (8.4-10.2) mg/dL Magnesium (1.6-2.3) mg/dL Total Bilirubin (0.2-1.3) mg/dL AST (14-36) U/L ALT (4-34) U/L Alkaline Phosphatase (38-126) U/L Troponin I <0.012 (0.000-0.034) ng/mL NT-Pro-B Natriuret Pep pg/mL Total Protein (6.3-8.2) g/dL Albumin (3.5-5.0) g/dL Lipase (23-300) U/L Coronavirus (PCR) (Not Detectd) Disposition Clinical Impression: Chest wall pain, Peripheral edema, Chronic leg pain Disposition: HOME SELF-CARE Condition: Stable Instructions (If sedation given, give patient instructions): Peripheral Neuropathy (ED), Chest Wall Pain (ED), Edema (ED) Is patient prescribed a controlled substance at d/c from ED?: No Referrals: Marzena Mclaughlin MD [Primary Care Provider] - 03/01/22 Time of Disposition: 04:40
[2022-03-01 00:41] LABS: Basophils # (A) 0.1 k/uL (0-0.2); Basophils % (A) 1 %; Eosinophils # (A) 0.2 k/uL (0-0.7); Eosinophils % (A) 2 %; HCT 42.7 % (34.0-46.0); HGB 13.3 gm/dL (11.4-16.0); Lymphocytes # (A) 2.4 k/uL (1.0-4.8); Lymphocytes % (A) 28 %; MCH 27.9 pg (25.0-35.0); MCHC 31.2 g/dL (31.0-37.0); MCV 89.6 fL (80.0-100.0); Mean Platelet Volume 8.1; Monocytes # (A) 0.6 k/uL (0-1.0); Monocytes % (A) 7 %; Neutrophils # (A) 5.1 k/uL (1.3-7.7); Neutrophils % (A) 60 %; Platelet Count 279 k/uL (150-450); RBC 4.76 m/uL (3.80-5.40); WBC 8.4 k/uL (3.8-10.6)
[2022-03-01 00:51] LABS: ALT 26 U/L (4-34); AST 27 U/L (14-36); African American GFR (CKD) >90 (>60 ml/min/1.73 sqM); Albumin 4.5 g/dL (3.5-5.0); Alkaline Phosphatase 83 U/L (38-126); Anion Gap 6 mmol/L; Blood Urea Nitrogen 22 mg/dL (7-17); Calcium 9.2 mg/dL (8.4-10.2); Carbon Dioxide 30 mmol/L (22-30); Chloride 105 mmol/L (98-107); Glucose 108 mg/dL (74-99); Lipase 157 U/L (23-300); Magnesium 2.1 mg/dL (1.6-2.3); Non-African American GFR(CKD) 83 (>60 ml/min/1.73 sqM); Sodium 141 mmol/L (137-145); Total Bilirubin 0.2 mg/dL (0.2-1.3); Total Protein 7.4 g/dL (6.3-8.2)
[2022-03-01 00:55] LABS: INR 0.9 (<1.2); Partial Thromboplastin Time 24.9 sec (22.0-30.0); Prothrombin Time 10.2 sec (9.0-12.0)
--- NOTE | 2022-03-01 01:19 | XR ---
EXAMINATION TYPE: XR chest 1V portable DATE OF EXAM: 03/01/2022 COMPARISON: 05/11/2021 HISTORY: Chest pain TECHNIQUE: FINDINGS: Heart is enlarged. No heart failure seen. There is some coarsening of the interstitial jackie ings. Costophrenic angles are clear. No pulmonary consolidation. IMPRESSION: Heart appears slightly increased compared to the old exam. No heart failure.
[2022-03-01] MEDS ORDERED: ACETAMINOPHEN TAB 500 MG TAB PO STA (02:34)
[2022-03-01] MEDS ORDERED: ACET/COD 300 MG/30 MG STARTER PACK 6 TAB BTL PO STA (04:24)
[2022-03-01] MEDS ORDERED: GABAPENTIN 100 MG CAP PO STA (04:26)
[2022-03-01 05:06] VITALS: BP 131/84; PULSE 92; TEMP 97.6
== END 2022-03-01 05:06 | disposition home or self-care (01) ==
LOC: EC 23:27
DX: R07.89 Other chest pain (principal); Z20.822 Contact with and (suspected) exposure to COVID-19; R60.9 Edema, unspecified; J45.909 Unspecified asthma, uncomplicated; Z88.6 Allergy status to analgesic agent; Z91.018 Allergy to other foods; Z88.5 Allergy status to narcotic agent; Z88.0 Allergy status to penicillin
CPT/HCPCS: 36415; 71045; 80053; 83690; 83735; 83880; 84484; 85025; 85379; 85610; 85730; 87635; 93005

== ENCOUNTER 2022-03-31 08:10 | Day surgery (SDC) | payer OTHER ==
[2022-03-30 10:49] VITALS: BMI 36.6
--- NOTE | 2022-03-30 22:17 | P.GSHP ---
History of Present Illness H&P Date: 03/30/22 Chief Complaint: Left flank pain The patient is a 56-year-old female with a history of urolithiasis. She recently presented with left flank pain associated with gross hematuria. Computed tomography scan revealed left hydronephrosis with a 1 cm left UPJ calculus. She underwent left ureteral stent insertion. She now comes for cystoscopy, left ureteral stent removal, left ureteroscopy with Holmium laser lithotripsy and possible stone basketing. - Constitutional Constitutional: Denies chills, Denies fever - Genitourinary (Female) Genitourinary: Reports as per HPI Past Medical History Past Medical History: Asthma, Hypertension, Osteoarthritis (OA) Additional Past Medical History / Comment(s): Bronchitis, hx of and current k idney stones, bilateral knees "weak and swollen", pt states she retains fluid in her body. History of Any Multi-Drug Resistant Organisms: None Reported Past Surgical History: Cholecystectomy, Hernia Repair, Hysterectomy, Tubal Ligation Additional Past Surgical History / Comment(s): Surgery for prolapsed uterus, umbilical hernia repair, kidney stone removal X3. Past Anesthesia/Blood Transfusion Reactions: No Reported Reaction Past Psychological History: No Psychological Hx Reported Additional Psychological History / Comment(s): Patient is originally from [place] and has lived in [facility] for many years. She speaks and reads in Lebanese but prefers to read in Turkmen. She is medically disabled. Smoking Status: Never smoker Past Alcohol Use History: None Reported Past Drug Use History: None Reported - Past Family History Mother Family Medical History: Asthma, Diabetes Mellitus Additional Family Medical History / Comment(s): Mother from asthma at the age of 46yrs. Father Family Medical History: No Reported History, Unable to Obtain Medications and Allergies Home Medications Medication Instructions Recorded Confirmed Type Albuterol Sulfate [Albuterol 2 puff PO Q6H PRN 03/30/22 03/30/22 History Sulfate Hfa] Allergies Allergy/AdvReac Type Severity Reaction Status Date / Time aspirin Allergy Rash/Hives Verified 03/30/22 10:25 capsaicin [From Dolorac] Allergy Rapid Verified 03/30/22 10:25 Heart Rate hydromorphone Allergy Rash/Hives Verified 03/30/22 10:25 ketorolac Allergy Rapid Verified 03/30/22 10:25 Heart Rate morphine Allergy Rapid Verified 03/30/22 10:25 Heart Rate NSAIDS (Non-Steroidal Allergy Rash/Hives Verified 03/30/22 10:25 Anti-Inflamma ondansetron [From Zofran] Allergy Rapid Verified 03/30/22 10:25 Heart Rate Penicillins Allergy Rash/Hives Verified 03/30/22 10:25 tromethamine Allergy Rapid Verified 03/30/22 10:25 Heart Rate Surgical - Exam - General well developed, well nourished, no distress - Respiratory normal respiratory effort - Abdomen Abdomen: soft, non tender, tender, no masses, no guarding, no rigid, no rebound - Psychiatric oriented to time, oriented to person, oriented to place, speech is normal, memory intact Results - Imaging CT scan - abdomen: report reviewed, image reviewed Assessment and Plan (1) Calculus of kidney Status: Acute Code(s): N20.0 - CALCULUS OF KIDNEY SNOMED Code(s): 84738748 Plan: Cystoscopy, left ureteral stent removal, left ureteroscopy with Holmium laser lithotripsy and possible stone basketing. The procedure has been reviewed in detail with the patient. She has been made aware of potential risks, which include anesthesia, bleeding, infection, and ureteral injury. She is also aware of the possible need for a secondary procedure.
--- NOTE | 2022-03-31 08:40 | XR ---
EXAMINATION TYPE: XR KUB DATE OF EXAM: 03/31/2022 Comparison: 02/23/2022 Clinical History: 56-year-old female N20.0 left renal calculus Findings: Cholecystectomy clips. A left ureteral stent is in place. Subtle calcific densities are suggested valerie ng the proximal aspect of the stent just beyond the pigtail loop measuring 8 mm. Mild stool right ana e of the abdomen. Overall nonobstructive bowel gas pattern. Impression: A vague 8 mm density along the proximal most aspect of the left-sided ureteral stent, just beyond the pigtail loop. Likely calculus in the left renal collecting system.
[2022-03-31] MEDS ORDERED: LACTATED RINGERS 1,000 ML IV SCH (08:53)
[2022-03-31] MEDS ORDERED: fentaNYL (PF) 50 MCG/ML 2 ML AMP IV PRN (08:53)
[2022-03-31] MEDS ORDERED: DEXAMETHASONE SOD PHOSPHATE 4 MG/ML 1 ML VIAL IV ONE (08:53)
[2022-03-31] MEDS ORDERED: LIDOCAINE 1% (10MG/ML) FOR IV START INTRADERMA ONE (10:15)
[2022-03-31] MEDS ORDERED: MIDAZOLAM 2 MG/2 ML VIAL IV ONE (10:25)
[2022-03-31 10:29] VITALS: RESP 16
[2022-03-31] MEDS ORDERED: MIDAZOLAM 2 MG/2 ML VIAL ONE (11:22)
[2022-03-31] MEDS ORDERED: fentaNYL (PF) 50 MCG/ML 2 ML AMP ONE (11:22)
[2022-03-31] MEDS ORDERED: PROPOFOL 10 MG/ML 20 ML VIAL IV ONE (11:22)
[2022-03-31] MEDS ORDERED: LIDOCAINE 2% INJ 20 MG/ML (2 ML VIAL) ONE (11:22)
[2022-03-31] MEDS ORDERED: LACTATED RINGERS 1,000 ML IV ONE (12:28)
[2022-03-31 12:38] VITALS: TEMP 97
--- NOTE | 2022-03-31 12:44 | P.OP ---
Date of Procedure: 03/31/22 Preoperative Diagnosis: Left Renal Calculus Postoperative Diagnosis: Same Procedure(s) Performed: Cystoscopy, left ureteral stent removal, left ureteroscopy with Holmium laser lithotripsy and stone basketing Anesthesia: JACOB Surgeon: Adolph Meng Estimated Blood Loss (ml): 10 IV fluids (ml): 700 Pathology: other (Stone fragments, sent for chemical analysis) Condition: stable Disposition: PACU Indications for Procedure: The patient is a 56-year-old female with a history of urolithiasis. She recently presented with left flank pain associated with gross hematuria. Computed tomography scan revealed left hydronephrosis with a 1 cm left UPJ calculus. She underwent left ureteral stent insertion. She now comes for cystoscopy, left ureteral stent removal, left ureteroscopy with Holmium laser lithotripsy and possible stone basketing. Operative Findings: 1 cm left renal calculus, fragments easily and completely. Description of Procedure: The patient was taken to the operating room and placed in the dorsolithotomy position, with legs supported in Donald stirrups. The external genitalia was prepped and draped sterilely. The 30 lens was used to introduce the 21-[place] Wiley cystoscopic sheath through the urethra and into the bladder under direct vision. The bladder was examined in its entirety. No abnormalities were seen. Grasping forceps were used to grasp the distal end of the left ureteral stent, which was removed along with the cystoscope. A 0.038 inch Glidewire was passed through the stent and up to the left renal pelvis. An 11/13-[place]ankan ureteral access catheter was passed over the wire, up to the proximal ureter. The flexible ureteroscope was then passed through the ureteral access catheter sheath, up to the renal pelvis where the calculus was identified. The 272 micron Holmium laser probe was passed through the ureteroscope, and lithotripsy was performed. The calculus was not at all dense and fragmented readily. Fragments measuring up to 2 mm in size were removed using a 1.9-S[place]ankan nitinol basket. These were saved and sent for chemical analysis. All that remained was dust. Pullout ureteroscopy was performed as the ureteral access catheter sheath was removed. There were no calculus fragments seen within the ureter, and no evidence of ureteral trauma. The patient tolerated the procedure well and was taken to the recovery room in stable condition. Confidex Report: Procedure Acuity: Elective Stone Size and Location: 1 cm, left renal pelvis Ureteral Dilation: No Ureteral Access Sheath Used: Yes Stone Sent for Analysis: Yes All Stones/Fragments Were Removed with a Basket: Yes Complications: No Preoperative Antibiotics Given: Yes Stent Placed: No Discharge Medications: None
[2022-03-31] MEDS ORDERED: MEPERIDINE 50 MG/ML SYRINGE IVP ONE (13:44)
--- NOTE | 2022-03-31 14:08 | FL ---
Fluoroscopy HISTORY: Left renal calculus 13 seconds fluoroscopy time supplied to the referring clinician. 2 intraoperative C-arm images docum ent the procedure. See dictated report from urology.
[2022-03-31 14:44] VITALS: BP 147/84; PULSE 84
== END 2022-03-31 15:02 | disposition home or self-care (01) ==
LOC: OR 08:10
PROVIDERS: ATTEND Urology
DX: N20.0 Calculus of kidney (principal); J45.909 Unspecified asthma, uncomplicated; I10 Essential (primary) hypertension; M19.90 Unspecified osteoarthritis, unspecified site; Z87.442 Personal history of urinary calculi; Z90.49 Acquired absence of other specified parts of digestive tract; Z90.710 Acquired absence of both cervix and uterus; Z98.51 Tubal ligation status; Z98.890 Other specified postprocedural states; Z83.3 Family history of diabetes mellitus; Z82.5 Family history of asthma and other chronic lower respiratory diseases; Z88.6 Allergy status to analgesic agent; Z88.5 Allergy status to narcotic agent; Z88.0 Allergy status to penicillin; Z88.8 Allergy status to other drugs, medicaments and biological substances
CPT/HCPCS: 82365; 74018; 52353; C1758 ×3; C1769; C1894; J2250; J1100; J2175; J0690; J3010; J2704; J2001

== ENCOUNTER 2023-02-27 15:17 | Emergency (ER) | payer OTHER ==
[2023-02-27 15:24] VITALS: BP 150/98; PULSE 94; RESP 17; TEMP 97.9
[2023-02-27 16:13] LABS: Appearance,Urine Cloudy (Clear); Bilirubin,Urine Negative (Negative); Blood,Urine Large (Negative); Calcium Oxalate Crystals,Urine Many /hpf; Color,Urine Yellow; Glucose,Urine (UA) Negative (Negative); Ketones,Urine Negative (Negative); Leukocyte Esterase,Urine Moderate (Negative); Mucus,Urine Few /hpf; Nitrite,Urine Negative (Negative); PH, Urine 5.5 (5.0-8.0); Protein,Urine Trace (Negative); RBC,Urine 33 /hpf (0-5); Specific Gravity,Urine 1.028 (1.001-1.035); Squamous Epithelial Cell,Urine 10 /hpf (0-4); Urobilinogen,Urine <2.0 mg/dL (<2.0); WBC,Urine 6 /hpf (0-5)
--- NOTE | 2023-02-27 16:52 | CT ---
EXAMINATION TYPE: CT abdomen pelvis wo con DATE OF EXAM: 02/27/2023 COMPARISON: 06/01/2022 HISTORY: 57-year-old female right flank pain, hematuria CT DLP: 1360.7 mGycm. Automated exposure control for dose reduction was used. TECHNIQUE: Contiguous axial scanning of the abdomen and pelvis without IV contrast. Coronal and sagit aruna reconstructions performed. FINDINGS: Heart upper limits of normal in size without pericardial effusion. Lung bases clear without pleural e ffusion. Noncontrast appearance of the liver shows a couple vague hypodensities measuring up to 1.2 cm, probab ly small cysts. Patient is status post cholecystectomy. Noncontrast appearance of the adrenal glands, spleen, and pancreas show no gross abnormal body. No nephrolithiasis. Similar extrarenal pelvis on the left. No calyceal dilatation to suggest hydrone phrosis. No suspicious calcification seen along the course of either ureter. No dilated small bowel, free fluid, or free air. No mesenteric or retroperitoneal lymphadenopathy. Normal appendix. Scattered mild stool. No pericolic inflammatory change. Bladder is collapsed. Uterus surgically absent. Suspect small bilateral ovaries. No abnormal fluid co llection in the pelvis or pelvic lymphadenopathy. A couple pelvic phlebolith are noted. Bones: Moderate degenerative disc disease L5-S1. IMPRESSION: 1. No nephrolithiasis or hydronephrosis. 2. Normal appendix.
[2023-02-27] MEDS ORDERED: ACETAMINOPHEN TAB 500 MG TAB PO STA (16:58)
[2023-02-27] MEDS ORDERED: LIDOCAINE 5% PATCH TOPICAL SCH (17:00)
--- NOTE | 2023-02-27 17:34 | ED ---
Female Urogenital HPI - General Chief complaint: Urogenital Stated complaint: back/side pain/blood in urine Time Seen by Provider: 02/27/23 15:53 Source: patient Limitations: no limitations - History of Present Illness Initial comments: Patient is a 57-year-old female presenting with chief complaint of right-sided flank pain that started today. She states that the pain wraps around to the abdomen. She also notices blood in the urine that started today. No fevers or chills. Admits to nausea with no vomiting. No diarrhea. No chest pain or difficulty breathing. No recent injury or trauma. - Related Data Home Medications Medication Instructions Recorded Confirmed Ascorbic Acid [Vitamin C] 1,000 mg PO DAILY 02/27/23 02/27/23 Cholecalciferol [Vitamin D3 (25 25 mcg PO DAILY 02/27/23 02/27/23 Mcg = 1000 Iu)] Losartan-Hctz 50-12.5 mg [Hyzaar 1 tab PO DAILY 02/27/23 02/27/23 50-12.5] Multivitamins, Thera [Multivitamin 1 tab PO DAILY 02/27/23 02/27/23 (formulary)] Omeprazole [PriLOSEC] 20 mg PO AC-BRKFST 02/27/23 02/27/23 Vitamin E (Dl,Tocopheryl Acet) 1,000 unit PO DAILY 02/27/23 02/27/23 [Vitamin E (1000 Iu = 450 MG)] Previous Rx's Medication Instructions Recorded Sulfamethox-Tmp 800-160Mg [Bactrim 1 tab PO Q12HR 5 Days #10 tab 02/27/23 DS 800-160 mg] Allergies Allergy/AdvReac Type Severity Reaction Status Date / Time aspirin Allergy Rash/Hives Verified 02/27/23 16:54 capsaicin [From Dolorac] Allergy Rapid Verified 02/27/23 16:54 Heart Rate hydromorphone Allergy Rash/Hives Verified 02/27/23 16:54 ketorolac Allergy Rapid Verified 02/27/23 16:54 Heart Rate morphine Allergy Rapid Verified 02/27/23 16:54 Heart Rate NSAIDS (Non-Steroidal Allergy Rash/Hives Verified 02/27/23 16:54 Anti-Inflamma ondansetron [From Zofran] Allergy Rapid Verified 02/27/23 16:54 Heart Rate Penicillins Allergy Rash/Hives Verified 02/27/23 16:54 tromethamine Allergy Rapid Verified 02/27/23 16:54 Heart Rate Review of Systems ROS Statement: Those systems with pertinent positive or pertinent negative responses have been documented in the HPI. ROS Other: All systems not noted in ROS Statement are negative. Past Medical History Past Medical History: Asthma, Hypertension, Osteoarthritis (OA) Additional Past Medical History / Comment(s): Bronchitis, hx of and current kidney stones, bilateral knees "weak and swollen", pt states she retains fluid in her body. History of Any Multi-Drug Resistant Organisms: None Reported Past Surgical History: Cholecystectomy, Hernia Repair, Hysterectomy, Tubal Ligation Additional Past Surgical History / Comment(s): Surgery for prolapsed uterus, umbilical hernia repair, kidney stone removal X3. Past Anesthesia/Blood Transfusion Reactions: No Reported Reaction Past Psychological History: No Psychological Hx Reported Smoking Status: Never smoker Past Alcohol Use History: None Reported Past Drug Use History: None Reported - Past Family History Mother Family Medical History: Asthma, Diabetes Mellitus Additional Family Medical History / Comment(s): Mother from asthma at the age of 46yrs. Father Family Medical History: No Reported History, Unable to Obtain General Exam Limitations: no limitations General appearance: alert, in no apparent distress Head exam: Present: atraumatic, normocephalic, normal inspection Eye exam: Present: normal appearance, EOMI. Absent: scleral icterus, periorbital swelling Neck exam: Present: normal inspection, full ROM Respiratory exam: Present: normal lung sounds bilaterally. Absent: respiratory distress, wheezes, rales, rhonchi, stridor Cardiovascular Exam: Present: regular rate, normal rhythm, normal heart sounds. Absent: systolic murmur, diastolic murmur, rubs, gallop, clicks GI/Abdominal exam: Present: soft. Absent: distended, tenderness, guarding, rebound, rigid Extremities exam: Present: normal inspection, full ROM Back exam: Present: normal inspection, full ROM Neurological exam: Present: alert, oriented X3, CN II-XII intact Psychiatric exam: Present: normal affect, normal mood Skin exam: Present: warm, dry, intact, normal color. Absent: rash Course Vital Signs 02/27/23 15:21 Temperature 97.9 F Pulse Rate 94 Respiratory 17 Rate Blood Pressure 150/98 O2 Sat by Pulse 96 Oximetry Medical Decision Making - Medical Decision Making Was pt. sent in by a medical professional or institution (JARED Bloom, MARKETING FORECASTER, urgent care, hospital, or detention...) When possible be specific @ -No Did you speak to anyone other than the patient for history (EMS, parent, family, police, friend...)? What history was obtained from this source @ -No Did you review nursing and triage notes (agree or disagree)? Why? @ -I reviewed and agree with nursing and triage notes Were old charts reviewed (outside hosp., previous admission, EMS record, old EKG, old radiological studies, urgent care reports/EKG's, detention records)? Report findings @ -No old charts were reviewed Differential Diagnosis (chest pain, altered mental status, abdominal pain women, abdominal pain men, vaginal bleeding, weakness, fever, dyspnea, syncope, headache, dizziness, GI bleed, back pain, seizure, CVA, palpatations, mental health, musculoskeletal)? @ - MDM Differential Back Pain: Strain, zoster, cauda equina syndrome, epidural abscess, vertebral osteomyelitis, discitis, fracture, subluxation, disc herniation, DJD, spinal stenosis, dissection, AAA, pancreatitis, peptic ulcer disease, pyelonephritis, kidney stone this is not meant to be an all-inclusive list. EKG interpreted by me (3pts min.). @ -As above X-rays interpreted by me (1pt min.). @ -None done CT interpreted by me (1pt min.). @ -CT shows no nephrolithiasis or hydronephrosis and normal appendix U/S interpreted by me (1pt. min.). @ -None done What testing was considered but not performed or refused? (CT, X-rays, U/S, labs)? Why? @ -None What meds were considered but not given or refused? Why? @ -None Did you discuss the management of the patient with other professionals (professionals i.e. JARED Bloom, MARKETING FORECASTER, lab, RT, psych nurse, rn social work, military lawyer, teacher, adult parole officer, director of casework department)? Give summary @ -No Was smoking cessation discussed for >3mins.? @ -No Was critical care preformed (if so, how long)? @ -No Were there social determinants of health that impacted care today? How? (Homelessness, low income, unemployed, alcoholism, drug addiction, transportation, low edu. Level, literacy, decrease access to med. care, correction, rehab)? @ -No Was there de-escalation of care discussed even if they declined (Discuss DNR or withdrawal of care, Hospice)? DNR status @ -No What co-morbidities impacted this encounter? (DM, HTN, Smoking, COPD, CAD, Cancer, CVA, ARF, Chemo, Hep., AIDS, mental health diagnosis, sleep apnea, m orbid obesity)? @ -None Was patient admitted / discharged? Hospital course, mention meds given and route, prescriptions, significant lab abnormalities, going to OR and other pertinent info. @ -Patient is a 57-year-old female presenting with chief complaint of right- sided flank pain. She admits to hematuria. On physical examination there is tenderness on palpation. Urine shows large blood with 33 rbc's and 6 wbc's, she'll be prophylactically treated with Bactrim. CT is negative for nephrolithiasis or any other acute process. On reassessment she reports improvement in her symptoms after Tylenol lidocaine patch. He is educated on supportive management at home and instructed to follow-up with PCP and urology. Follow-up with PCP. Report back to ER with any new or worsening symptoms. Discussed return parameters and answered all questions. Patient conveyed verbal understanding and agreed to the plan. I discussed this case in detail with my attending Dr. Ceballos Undiagnosed new problem with uncertain prognosis? @ -No Drug Therapy requiring intensive monitoring for toxicity (Heparin, Nitro, Insulin, Cardizem)? @ -No Were any procedures done? @ -No Diagnosis/symptom? @ -UTI Acute, or Chronic, or Acute on Chronic? @ -Acute Uncomplicated (without systemic symptoms) or Complicated (systemic symptoms)? @ -Uncomplicated Side effects of treatment? @ -No Exacerbation, Progression, or Severe Exacerbation? @ -No Poses a threat to life or bodily function? How? (Chest pain, [place], [place], pneumonia, PE, COPD, DKA, ARF, appy, cholecystitis, CVA, Diverticulitis, Homicidal, Suicidal, threat to staff... and all critical care pts) @ -No - Lab Data Lab Results 02/27/23 Range/Units 16:06 Urine Color Yellow Urine Appearance Cloudy H (Clear) Urine pH 5.5 (5.0-8.0) Ur Specific [place] 1.028 (1.001-1.035) Urine Protein Trace H (Negative) Urine Glucose (UA) Negative (Negative) Urine Ketones Negative (Negative) Urine Blood Large H (Negative) Urine Nitrite Negative (Negative) Urine Bilirubin Negative (Negative) Urine Urobilinogen <2.0 (<2.0) mg/dL Ur Leukocyte Esterase Moderate H (Negative) Urine RBC 33 H (0-5) /hpf Urine WBC 6 H (0-5) /hpf Ur Squamous Epith Cells 10 H (0-4) /hpf Calcium Oxalate Crystal Many H (None) /hpf Urine Mucus Few H (None) /hpf Disposition Clinical Impression: Urinary tract infection Disposition: HOME SELF-CARE Condition: Good Instructions (If sedation given, give patient instructions): Urinary Tract Infection in Women (ED) Additional Instructions: Follow-up with PCP and urology. Report back to ER with any new or worsening symptoms. Take medication as prescribed. Prescriptions: Sulfamethox-Tmp 800-160Mg [Bactrim DS 800-160 mg] 1 tab PO Q12HR 5 Days #10 tab Is patient prescribed a controlled substance at d/c from ED?: No Referrals: Marzena Mclaughlin MD [Primary Care Provider] - 1-2 days Cesar Salvador MD [STAFF PHYSICIAN] - 1-2 days Time of Disposition: 18:11
[2023-02-27] MEDS ORDERED: MECLIZINE 12.5 MG TAB PO STA (18:20)
== END 2023-02-27 18:35 | disposition home or self-care (01) ==
LOC: EC 15:17
DX: N39.0 Urinary tract infection, site not specified (principal); J45.909 Unspecified asthma, uncomplicated; I10 Essential (primary) hypertension; M19.90 Unspecified osteoarthritis, unspecified site; Z88.0 Allergy status to penicillin; Z88.5 Allergy status to narcotic agent; Z88.6 Allergy status to analgesic agent; Z88.8 Allergy status to other drugs, medicaments and biological substances; Z79.899 Other long term (current) drug therapy
CPT/HCPCS: 74176; 81001; 99284

== ENCOUNTER → 2023-03-20 | Outpatient (CLI) | payer OTHER ==
--- NOTE | 2023-03-21 08:03 | MM ---
Reason for Exam: Screening (asymptomatic). Last mammogram was performed 3 year(s) and 8 month(s) ago. Patient History: Menarche at age 15. First Full-Term at age 20. 08/26/2019, US discontinued breast core RT on the right side. Risk Values: Maria G 5 year model risk: 0.5%. NCI Lifetime model risk: 3.7%. Prior Study Comparison: 05/23/2018 Left Diagnostic Mammogram, [facility]. 05/23/2018 Screening Mammogram, Unknown. 08/01/2019 Bilateral Diagnostic Mammogram, [facility]. Tissue Density: The breast tissue is heterogeneously dense. This may lower the sensitivity of mammography. Findings: Analyzed By CAD. There is no suspicious group of microcalcifications or new suspicious mass in either breast. Overall Assessment: Benign, BI-RAD 2 Management: Screening Mammogram of both breasts in 1 year. . Patient should continue monthly self-breast exams. A clinical breast exam by your physician is recommended on an annual basis. This exam should not preclude additional follow-up of suspicious palpable abnormalities. Note on Maria G scores and lifetime risk: 1. A Maria G score greater than 3% is considered moderate risk. If this is the case, consider specialist referral to assess eligibility for a risk reducing agent. 2. If overall lifetime risk for the development of breast cancer is 20% or higher, the patient may qualify for future screening with alternating mammogram and breast MRI. Electronically signed and approved by: Dileep Evans M.D. Radiologis
== END | disposition home or self-care (01) ==
LOC: RADMAMWWP 12:48
PROVIDERS: ATTEND Family Medicine
DX: Z12.31 Encounter for screening mammogram for malignant neoplasm of breast (principal)
CPT/HCPCS: 77067

== ENCOUNTER 2023-11-02 19:27 | Emergency (ER) | payer OTHER ==
[2023-11-02 19:49] VITALS: RESP 18
[2023-11-02] MEDS ORDERED: SODIUM CHLORIDE 0.9% 1,000 ML IV STA (20:31)
--- NOTE | 2023-11-02 20:34 | ED ---
General Adult HPI - General Chief complaint: Dizziness Stated complaint: Dizziness Time Seen by Provider: 11/02/23 20:07 Source: patient, RN notes reviewed, old records reviewed Mode of arrival: ambulatory Limitations: no limitations - History of Present Illness Initial comments: 58 -year-old female presents with 1 week of nausea, diarrhea and lighthead edness. Patient states she has some abdominal discomfort associated with her diarrhea. No fever. No chest pain. No dyspnea. No focal numbness or weakness. - Related Data Home Medications Medication Instructions Recorded Confirmed Ascorbic Acid [Vitamin C] 1,000 mg PO DAILY 02/27/23 02/27/23 Cholecalciferol [Vitamin D3 (25 25 mcg PO DAILY 02/27/23 02/27/23 Mcg = 1000 Iu)] Losartan-Hctz 50-12.5 mg [Hyzaar 1 tab PO DAILY 02/27/23 02/27/23 50-12.5] Multivitamins, Thera [Multivitamin 1 tab PO DAILY 02/27/23 02/27/23 (formulary)] Omeprazole [PriLOSEC] 20 mg PO AC-BRKFST 02/27/23 02/27/23 Vitamin E (Dl,Tocopheryl Acet) 1,000 unit PO DAILY 02/27/23 02/27/23 [Vitamin E (1000 Iu = 450 MG)] Previous Rx's Medication Instructions Recorded Sulfamethox-Tmp 800-160Mg [Bactrim 1 tab PO Q12HR 5 Days #10 tab 02/27/23 DS 800-160 mg] Allergies Allergy/AdvReac Type Severity Reaction Status Date / Time aspirin Allergy Rash/Hives Verified 11/02/23 19:34 capsaicin [From Dolorac] Allergy Rapid Verified 11/02/23 19:34 Heart Rate hydromorphone Allergy Rash/Hives Verified 11/02/23 19:34 ketorolac Allergy Rapid Verified 11/02/23 19:34 Heart Rate morphine Allergy Rapid Verified 11/02/23 19:34 Heart Rate NSAIDS (Non-Steroidal Allergy Rash/Hives Verified 11/02/23 19:34 Anti-Inflamma ondansetron [From Zofran] Allergy Rapid Verified 11/02/23 19:34 Heart Rate Penicillins Allergy Rash/Hives Verified 11/02/23 19:34 tromethamine Allergy Rapid Verified 11/02/23 19:34 Heart Rate Review of Systems ROS Statement: Those systems with pertinent positive or pertinent negative responses have been documented in the HPI. ROS Other: All systems not noted in ROS Statement are negative. Past Medical History Past Medical History: Asthma, Hypertension, Osteoarthritis (OA) Additional Past Medical History / Comment(s): Bronchitis, hx of and current kidney stones, bilateral knees "weak and swollen", pt states she retains fluid in her body. History of Any Multi-Drug Resistant Organisms: None Reported Past Surgical History: Cholecystectomy, Hernia Repair, Hysterectomy, Tubal Ligation Additional Past Surgical History / Comment(s): Surgery for prolapsed uterus, umbilical hernia repair, kidney stone removal X3. Past Anesthesia/Blood Transfusion Reactions: No Reported Reaction Past Psychological History: No Psychological Hx Reported Smoking Status: Never smoker Past Alcohol Use History: None Reported Past Drug Use History: None Reported - Past Family History Mother Family Medical History: Asthma, Diabetes Mellitus Additional Family Medical History / Comment(s): Mother from asthma at the age of 46yrs. Father Family Medical History: No Reported History, Unable to Obtain General Exam Limitations: no limitations General appearance: alert, in no apparent distress Head exam: Present: atraumatic, normocephalic Eye exam: Present: normal appearance, PERRL ENT exam: Present: mucous membranes dry Neck exam: Present: normal inspection. Absent: tenderness, meningismus Respiratory exam: Present: normal lung sounds bilaterally. Absent: respiratory distress, wheezes Cardiovascular Exam: Present: regular rate, normal rhythm GI/Abdominal exam: Present: soft, distended. Absent: tenderness, guarding, rebound, rigid Extremities exam: Present: normal inspection, normal capillary refill. Absent: pedal edema Neurological exam: Present: alert, oriented X3, CN II-XII intact. Absent: motor sensory deficit Psychiatric exam: Present: normal affect, normal mood Skin exam: Present: warm, dry, intact. Absent: cyanosis, diaphoretic Course Vital Signs 11/02/23 19:32 Temperature 98.8 F Pulse Rate 91 Respiratory 18 Rate Blood Pressure 116/81 O2 Sat by Pulse 96 Oximetry Medical Decision Making - Medical Decision Making Was pt. sent in by a medical professional or institution (, PA, GARDENING SUPERVISOR, urgent care, hospital, or usp...) When possible be specific @ -No Did you speak to anyone other than the patient for history (EMS, parent, family, police, friend...)? What history was obtained from this source @ -No Did you review nursing and triage notes (agree or disagree)? Why? @ -I reviewed and agree with nursing and triage notes Were old charts reviewed (outside hosp., previous admission, EMS record, old EKG, old radiological studies, urgent care reports/EKG's, usp records)? Report findings @ -No old charts were reviewed Differential Diagnosis (chest pain, altered mental status, abdominal pain women, abdominal pain men, vaginal bleeding, weakness, fever, dyspnea, syncope, headache, dizziness, GI bleed, back pain, seizure, CVA, palpatations, mental health, musculoskeletal)? @ -[Differential Abdominal Pain Women: Appendicitis, Cholecystitis, diverticulosis, ischemic bowel, pancreatitis, hepatitis, UTI, gastroenteritis, AAA, incarcerated hernia, bowel obstruction, constipation, inflammatory bowel, hepatitis, peptic ulcer disease, splenic infarction, perforated viscus, vulvitis, ovarian torsion, PID, kidney stone, placenta abruption, this is not meant to be an all-inclusive list EKG interpreted by me (3pts min.). @ Sinus rhythm rate of 92, VT interval 156 QRS duration 88, QTC [address] segment changes. X-rays interpreted by me (1pt min.). @ X-ray negative for obstruction, or intraperitoneal free air. CT interpreted by me (1pt min.). @ -None done U/S interpreted by me (1pt. min.). @ -None done What testing was considered but not performed or refused? (CT, X-rays, U/S, labs)? Why? @ -None What meds were considered but not given or refused? Why? @ -None Did you discuss the management of the patient with other professionals (professionals i.e. , PA, GARDENING SUPERVISOR, lab, RT, psych nurse, social services aide, accountant machine processing, teacher, property utilization officer, case technician)? Give summary @ -No Was smoking cessation discussed for >3mins.? @ -No Was critical care preformed (if so, how long)? @ -No Were there social determinants of health that impacted care today? How? (Homelessness, low income, unemployed, alcoholism, drug addiction, transportation, low edu. Level, literacy, decrease access to med. care, half-way, rehab)? @ -No Was there de-escalation of care discussed even if they declined (Discuss DNR or withdrawal of care, Hospice)? DNR status @ -No What co-morbidities impacted this encounter? (DM, HTN, Smoking, COPD, CAD, Cancer, CVA, ARF, Chemo, Hep., AIDS, mental health diagnosis, sleep apnea, morbid obesity)? @ -None Was patient admitted / discharged? Hospital course, mention meds given and route, prescriptions, significant lab abnormalities, going to OR and other pertinent info. @ -58-year-old female with diarrheal illness with nausea without vomiting. No fever. Patient has some lightheadedness associated with this. She does appear dehydrated. Given 1 L of normal saline. Laboratory tests including CBC, CMP, urinalysis and viral panel is unremarkable. She has no focal findings on exam, no ataxia, normal finger to nose. No nystagmus. No other signs of CVA. No complaints of chest pain. EKG is sinus without ST segment elevation. Troponin is negative. Patient stable for discharge at this time. Undiagnosed new problem with uncertain prognosis? @ -No Drug Therapy requiring intensive monitoring for toxicity (Heparin, Nitro, Insulin, Cardizem)? @ -No Were any procedures done? @ -No Diagnosis/symptom? @ -[Diarrhea, dehydration Acute, or Chronic, or Acute on Chronic? @ -[Acute Uncomplicated (without systemic symptoms) or Complicated (systemic symptoms)? @ -default Side effects of treatment? @ -No Exacerbation, Progression, or Severe Exacerbation? @ -No Poses a threat to life or bodily function? How? (Chest pain, [place], [place], pneumonia, PE, COPD, DKA, ARF, appy, cholecystitis, CVA, Diverticulitis, Homicidal, Suicidal, threat to staff... and all critical care pts) @ -[Low risk - Lab Data Result diagrams: 11/02/23 20:49 11/02/23 20:49 Lab Results 11/02/23 11/02/23 11/02/23 Range/Units 20:31 20:49 20:49 WBC 7.4 (3.8-10.6) k/uL RBC 5.00 (3.80-5.40) m/uL Hgb 14.2 (11.4-16.0) gm/dL Hct 44.0 (34.0-46.0) % MCV 87.9 (80.0-100.0) fL MCH 28.3 (25.0-35.0) pg MCHC 32.2 (31.0-37.0) g/dL RDW 13.5 (11.5-15.5) % Plt Count 306 (150-450) k/uL MPV 7.8 Neutrophils % 59 % Lymphocytes % 30 % Monocytes % 6 % Eosinophils % 3 % Basophils % 1 % Neutrophils # 4.4 (1.3-7.7) k/uL Lymphocytes # 2.2 (1.0-4.8) k/uL Monocytes # 0.4 (0-1.0) k/uL Eosinophils # 0.2 (0-0.7) k/uL Basophils # 0.0 (0-0.2) k/uL PT 10.1 (10.0-12.5) sec INR 0.9 (<1.2) APTT 24.5 (22.0-30.0) sec Sodium (137-145) mmol/L Potassium (3.5-5.1) mmol/L Chloride (98-107) mmol/L Carbon Dioxide (22-30) mmol/L Anion Gap mmol/L BUN (7-17) mg/dL Creatinine (0.52-1.04) mg/dL Est GFR (CKD-EPI)AfAm (>60 ml/min/1.73 sqM) Est GFR (CKD-EPI)NonAf (>60 ml/min/1.73 sqM) Glucose (74-99) mg/dL Plasma Lactic Acid Domo (0.7-2.0) mmol/L Calcium (8.4-10.2) mg/dL Total Bilirubin (0.2-1.3) mg/dL AST (14-36) U/L ALT (4-34) U/L Alkaline Phosphatase (38-126) U/L Troponin I (0.000-0.034) ng/mL Total Protein (6.3-8.2) g/dL Albumin (3.5-5.0) g/dL Amylase (30-110) U/L Lipase (23-300) U/L Urine Color Light Yellow Urine Appearance Cloudy H (Clear) Urine pH 6.5 (5.0-8.0) Ur Specific [place] 1.017 (1.001-1.035) Urine Protein Negative (Negative) Urine Glucose (UA) Negative (Negative) Urine Ketones Negative (Negative) Urine Blood Negative (Negative) Urine Nitrite Negative (Negative) Urine Bilirubin Negative (Negative) Urine Urobilinogen <2.0 (<2.0) mg/dL Ur Leukocyte Esterase Negative (Negative) Urine RBC 3 (0-5) /hpf Urine WBC 2 (0-5) /hpf Ur Squamous Epith Cells 2 (0-4) /hpf Urine Bacteria Rare H (None) /hpf Urine Mucus Rare H (None) /hpf 11/02/23 11/02/23 11/02/23 Range/Units 20:49 20:49 20:49 WBC (3.8-10.6) k/uL RBC (3.80-5.40) m/uL Hgb (11.4-16.0) gm/dL Hct (34.0-46.0) % MCV (80.0-100.0) fL MCH (25.0-35.0) pg MCHC (31.0-37.0) g/dL RDW (11.5-15.5) % Plt Count (150-450) k/uL MPV Neutrophils % % Lymphocytes % % Monocytes % % Eosinophils % % Basophils % % Neutrophils # (1.3-7.7) k/uL Lymphocytes # (1.0-4.8) k/uL Monocytes # (0-1.0) k/uL Eosinophils # (0-0.7) k/uL Basophils # (0-0.2) k/uL PT (10.0-12.5) sec INR (<1.2) APTT (22.0-30.0) sec Sodium 144 (137-145) mmol/L Potassium 4.0 (3.5-5.1) mmol/L Chloride 108 H (98-107) mmol/L Carbon Dioxide 27 (22-30) mmol/L Anion Gap 9 mmol/L BUN 17 (7-17) mg/dL Creatinine 0.78 (0.52-1.04) mg/dL Est GFR (CKD-EPI)AfAm >90 (>60 ml/min/1.73 sqM) Est GFR (CKD-EPI)NonAf 85 (>60 ml/min/1.73 sqM) Glucose 106 H (74-99) mg/dL Plasma Lactic Acid Domo 1.1 (0.7-2.0) mmol/L Calcium 9.9 (8.4-10.2) mg/dL Total Bilirubin 0.3 (0.2-1.3) mg/dL AST 26 (14-36) U/L ALT 33 (4-34) U/L Alkaline Phosphatase 97 (38-126) U/L Troponin I <0.012 (0.000-0.034) ng/mL Total Protein 7.5 (6.3-8.2) g/dL Albumin 4.4 (3.5-5.0) g/dL Amylase 55 (30-110) U/L Lipase 131 (23-300) U/L Urine Color Urine Appearance (Clear) Urine pH (5.0-8.0) Ur Specific [place] (1.001-1.035) Urine Protein (Negative) Urine Glucose (UA) (Negative) Urine Ketones (Negative) Urine Blood (Negative) Urine Nitrite (Negative) Urine Bilirubin (Negative) Urine Urobilinogen (<2.0) mg/dL Ur Leukocyte Esterase (Negative) Urine RBC (0-5) /hpf Urine WBC (0-5) /hpf Ur Squamous Epith Cells (0-4) /hpf Urine Bacteria (None) /hpf Urine Mucus (None) /hpf Disposition Clinical Impression: Dehydration, Diarrhea Disposition: HOME SELF-CARE Condition: Fair Instructions (If sedation given, give patient instructions): Dehydration (ED), Acute Diarrhea (ED) Is patient prescribed a controlled substance at d/c from ED?: No Referrals: Marzena Mclaughlin MD [Primary Care Provider] - 1-2 days Time of Disposition: 21:45
[2023-11-02 20:58] LABS: Basophils % (A) 1 %; Eosinophils # (A) 0.2 k/uL (0-0.7); Eosinophils % (A) 3 %; HGB 14.2 gm/dL (11.4-16.0); Lymphocytes # (A) 2.2 k/uL (1.0-4.8); Lymphocytes % (A) 30 %; MCH 28.3 pg (25.0-35.0); MCHC 32.2 g/dL (31.0-37.0); MCV 87.9 fL (80.0-100.0); Mean Platelet Volume 7.8; Monocytes # (A) 0.4 k/uL (0-1.0); Monocytes % (A) 6 %; Neutrophils # (A) 4.4 k/uL (1.3-7.7); Neutrophils % (A) 59 %; Platelet Count 306 k/uL (150-450); RDW 13.5 % (11.5-15.5); WBC 7.4 k/uL (3.8-10.6)
--- NOTE | 2023-11-02 21:00 | XR ---
EXAMINATION TYPE: XR KUB DATE OF EXAM: 11/02/2023 8:55 PM CLINICAL INDICATION:Female, 58 years old with history of abdominal pain. COMPARISON: None. TECHNIQUE: One radiographic view of the abdomen was obtained. FINDINGS: The bowel gas pattern is nonspecific without dilated loops of small or large bowel. There i s no evidence for organomegaly or pneumoperitoneum. The osseous structures are intact. Postsurgical clips are noted in the right upper quadrant. Fecal material and gas are demonstrated throughout the colon and rectum. IMPRESSION: Nonspecific bowel gas pattern without radiographic evidence for acute process.
[2023-11-02 21:07] LABS: INR 0.9 (<1.2); Partial Thromboplastin Time 24.5 sec (22.0-30.0); Prothrombin Time 10.1 sec (10.0-12.5)
[2023-11-02 21:11] LABS: ALT 33 U/L (4-34); AST 26 U/L (14-36); African American GFR (CKD) >90 (>60 ml/min/1.73 sqM); Albumin 4.4 g/dL (3.5-5.0); Alkaline Phosphatase 97 U/L (38-126); Amylase 55 U/L (30-110); Anion Gap 9 mmol/L; Blood Urea Nitrogen 17 mg/dL (7-17); Calcium 9.9 mg/dL (8.4-10.2); Carbon Dioxide 27 mmol/L (22-30); Chloride 108 mmol/L (98-107); Glucose 106 mg/dL (74-99); Lipase 131 U/L (23-300); Non-African American GFR(CKD) 85 (>60 ml/min/1.73 sqM); Sodium 144 mmol/L (137-145); Total Bilirubin 0.3 mg/dL (0.2-1.3); Total Protein 7.5 g/dL (6.3-8.2)
[2023-11-02 21:23] LABS: Appearance,Urine Cloudy (Clear); Bacteria,Urine Rare /hpf; Bilirubin,Urine Negative (Negative); Blood,Urine Negative (Negative); Color,Urine Light Yellow; Glucose,Urine (UA) Negative (Negative); Ketones,Urine Negative (Negative); Leukocyte Esterase,Urine Negative (Negative); Mucus,Urine Rare /hpf; Nitrite,Urine Negative (Negative); PH, Urine 6.5 (5.0-8.0); Protein,Urine Negative (Negative); RBC,Urine 3 /hpf (0-5); Specific Gravity,Urine 1.017 (1.001-1.035); Squamous Epithelial Cell,Urine 2 /hpf (0-4); Urobilinogen,Urine <2.0 mg/dL (<2.0); WBC,Urine 2 /hpf (0-5)
[2023-11-02 22:27] VITALS: BP 145/99; PULSE 71; TEMP 98.7
== END 2023-11-02 22:08 | disposition home or self-care (01) ==
LOC: EC 19:27
DX: E86.0 Dehydration (principal); R42 Dizziness and giddiness; J45.909 Unspecified asthma, uncomplicated; I10 Essential (primary) hypertension; M19.90 Unspecified osteoarthritis, unspecified site; Z79.899 Other long term (current) drug therapy; Z88.0 Allergy status to penicillin; Z88.5 Allergy status to narcotic agent; Z88.6 Allergy status to analgesic agent; Z88.8 Allergy status to other drugs, medicaments and biological substances; Z90.49 Acquired absence of other specified parts of digestive tract; Z20.822 Contact with and (suspected) exposure to COVID-19
CPT/HCPCS: 36415; 74018; 80053; 81001; 82150; 83605; 83690; 84484; 85025; 85610; 85730; 87636; 93005; 96360; 99284

== ENCOUNTER 2024-05-13 18:50 | Emergency (ER) | payer OTHER ==
[2024-05-13 19:05] VITALS: TEMP 98.1
[2024-05-13 19:59] LABS: Appearance,Urine Clear (Clear); Bilirubin,Urine Negative (Negative); Blood,Urine Negative (Negative); Color,Urine Colorless; Glucose,Urine (UA) Negative (Negative); Ketones,Urine Negative (Negative); Leukocyte Esterase,Urine Small (Negative); Mucus,Urine Rare /hpf; Nitrite,Urine Negative (Negative); PH, Urine 5.5 (5.0-8.0); Protein,Urine Negative (Negative); Specific Gravity,Urine 1.007 (1.001-1.035); Squamous Epithelial Cell,Urine 2 /hpf (0-4); Urobilinogen,Urine <2.0 mg/dL (<2.0); WBC,Urine 1 /hpf (0-5)
--- NOTE | 2024-05-13 20:43 | ED ---
Female Urogenital HPI - General Source: patient, family, RN notes reviewed Mode of arrival: ambulatory Limitations: language barrier <Yessi Clark - Last Filed: 05/13/24 20:42> <Marlene Hickman - Last Filed: 05/14/24 00:29> - General Chief complaint: Urogenital Stated complaint: Urogenital Time Seen by Provider: 05/13/24 20:42 - History of Present Illness Initial comments: Quick note: 58-year-old female presented to ER with a chief complaint of vaginal pain. Family is providing most of HPI as patient has a language barrier. Reports for about 1 week patient has been experiencing vaginal plan with small amount of bleeding. Patient does have a history of a hysterectomy due to prolapse. She also states dysuria. Reports low-grade fevers at home. (Yessi Clark) 58-year-old female with vaginal discomfort. history was mainly obtainted through patoent's family due to language barrier. Patient states that she has been experiencing vaginal discomfort and suprapubic pain over the past week in addition to dysuria and hematuria. Patient had a total hysterectomy completed due to a prolapse. She reports that she has had low-grade fevers at home. She denies diarrhea, constipation, nausea or vomiting. Does have a history of kidney stones and urinary tract infections. (Marlene Hickman) - Related Data Home Medications Medication Instructions Recorded Confirmed Ascorbic Acid [Vitamin C] 1,000 mg PO DAILY 02/27/23 02/27/23 Cholecalciferol [Vitamin D3 (25 25 mcg PO DAILY 02/27/23 02/27/23 Mcg = 1000 Iu)] Losartan-Hctz 50-12.5 mg [Hyzaar 1 tab PO DAILY 02/27/23 02/27/23 50-12.5] Multivitamins, Thera [Multivitamin 1 tab PO DAILY 02/27/23 02/27/23 (formulary)] Omeprazole [PriLOSEC] 20 mg PO AC-BRKFST 02/27/23 02/27/23 Vitamin E (Dl,Tocopheryl Acet) 1,000 unit PO DAILY 02/27/23 02/27/23 [Vitamin E (1000 Iu = 450 MG)] Previous Rx's Medication Instructions Recorded Sulfamethox-Tmp 800-160Mg [Bactrim 1 tab PO Q12HR 5 Days #10 tab 02/27/23 DS 800-160 mg] metroNIDAZOLE [Flagyl] 500 mg PO BID #14 tab 05/14/24 Allergies Allergy/AdvReac Type Severity Reaction Status Date / Time aspirin Allergy Rash/Hives Verified 05/13/24 19:05 capsaicin [From Dolorac] Allergy Rapid Verified 05/13/24 19:05 Heart Rate hydromorphone Allergy Rash/Hives Verified 05/13/24 19:05 ketorolac Allergy Rapid Verified 05/13/24 19:05 Heart Rate morphine Allergy Rapid Verified 05/13/24 19:05 Heart Rate NSAIDS (Non-Steroidal Allergy Rash/Hives Verified 05/13/24 19:05 Anti-Inflamma ondansetron [From Zofran] Allergy Rapid Verified 05/13/24 19:05 Heart Rate Penicillins Allergy Rash/Hives Verified 05/13/24 19:05 tromethamine Allergy Rapid Verified 05/13/24 19:05 Heart Rate Review of Systems ROS Other: All systems not noted in ROS Statement are negative. <Yessi Clark - Last Filed: 05/13/24 20:42> ROS Other: All systems not noted in ROS Statement are negative. <Marlene Hickman - Last Filed: 05/14/24 00:29> ROS Statement: Those systems with pertinent positive or pertinent negative responses have been documented in the HPI. Past Medical History Past Medical History: Asthma, Hypertension, Osteoarthritis (OA) Additional Past Medical History / Comment(s): Bronchitis, hx of and current kidney stones, bilateral knees "weak and swollen", pt states she retains fluid in her body. History of Any Multi-Drug Resistant Organisms: None Reported Past Surgical History: Cholecystectomy, Hernia Repair, Hysterectomy, Tubal Ligation Additional Past Surgical History / Comment(s): Surgery for prolapsed uterus, umbilical hernia repair, kidney stone removal X3. Past Anesthesia/Blood Transfusion Reactions: No Reported Reaction Past Psychological History: No Psychological Hx Reported Smoking Status: Never smoker Past Alcohol Use History: None Reported Past Drug Use History: None Reported - Past Family History Mother Family Medical History: Asthma, Diabetes Mellitus Additional Family Medical History / Comment(s): Mother from asthma at the age of 46yrs. Father Family Medical History: No Reported History, Unable to Obtain <Yessi Clark - Last Filed: 05/13/24 20:42> General Exam Limitations: language barrier <Yessi Clark - Last Filed: 05/13/24 20:42> Limitations: language barrier General appearance: alert, in no apparent distress Head exam: Present: atraumatic, normocephalic, normal inspection Eye exam: Present: normal appearance, PERRL, EOMI. Absent: scleral icterus, conjunctival injection, periorbital swelling ENT exam: Present: normal exam, mucous membranes moist Neck exam: Present: normal inspection. Absent: tenderness, meningismus, lym phadenopathy Respiratory exam: Present: normal lung sounds bilaterally. Absent: respiratory distress, wheezes, rales, rhonchi, stridor Cardiovascular Exam: Present: regular rate, normal rhythm, normal heart sounds. Absent: systolic murmur, diastolic murmur, rubs, gallop, clicks GI/Abdominal exam: Present: soft, tenderness (suprapubic), normal bowel sounds. Absent: distended, guarding, rebound, rigid External exam: Present: normal external exam Speculum exam: Present: erythema, vaginal discharge. Absent: cervical discharge, vaginal bleeding, foreign body By manual exam: Present: uterine tenderness. Absent: adnexal tenderness, adnexal mass Extremities exam: Present: normal inspection, full ROM, normal capillary refill. Absent: tenderness, pedal edema, joint swelling, calf tenderness Back exam: Present: normal inspection Neurological exam: Present: alert, oriented X3, CN II-XII intact Skin exam: Present: warm, dry, intact, normal color. Absent: rash <Marlene Hickman - Last Filed: 05/14/24 00:29> - General Exam Comments Initial Comments: Visual Physical Exam Vital signs reviewed General: Well-appearing, nontoxic, no acute distress. Head: Normocephalic, atraumatic Eyes: PERRLA, EOMI ENT: Airway patent Chest: Nonlabored breathing Skin: No visual rash, normal skin tone Neuro: Alert and oriented 3 Musculoskeletal: No gross abnormalities (Yessi Clark) Course Vital Signs 05/13/24 19:00 Temperature 98.1 F Pulse Rate 89 Respiratory 18 Rate Blood Pressure 139/101 O2 Sat by Pulse 97 Oximetry Medical Decision Making <Yessi Clark - Last Filed: 05/13/24 20:42> <Marlene Hickman - Last Filed: 05/14/24 00:29> - Medical Decision Making I performed the quick note portion of this chart. Electronically signed by Yessi Clark PA-C (Yessi Clark) Was pt. sent in by a medical professional or institution ([facility], [facility], urgent care, hospital, or prison...) When possible be specific @ -[No] Did you speak to anyone other than the patient for history (EMS, parent, family, police, friend...)? What history was obtained from this source @ -Patient's family at bedside aided in HPI due to there being a language barrier. See HPI for further details. Did you review nursing and triage notes (agree or disagree)? Why? @ -[I reviewed and agree with nursing and triage notes] Were old charts reviewed (outside hosp., previous admission, EMS record, old EKG, old radiological studies, urgent care reports/EKG's, prison records)? Report findings @ -[No old charts were reviewed] Differential Diagnosis (chest pain, altered mental status, abdominal pain women, abdominal pain men, vaginal bleeding, weakness, fever, dyspnea, syncope, headache, dizziness, GI bleed, back pain, seizure, CVA, palpatations, mental health, musculoskeletal)? @ -Differential Abdominal Pain Women: Appendicitis, Cholecystitis, diverticulosis, ischemic bowel, pancreatitis, hepatitis, UTI, gastroenteritis, AAA, incarcerated hernia, bowel obstruction, constipation, inflammatory bowel, hepatitis, peptic ulcer disease, splenic infarction, perforated viscus, vulvitis, ovarian torsion, PID, kidney stone, placenta abruption, this is not meant to be an all-inclusive list EKG interpreted by me (3pts min.). @ -none X-rays interpreted by me (1pt min.). @ -[None done] CT interpreted by me (1pt min.). @ -[None done] U/S interpreted by me (1pt. min.). @ -[None done] What testing was considered but not performed or refused? (CT, X-rays, U/S, labs)? Why? @ -[None] What meds were considered but not given or refused? Why? @ -[None] Did you discuss the management of the patient with other professionals (professionals i.e. , PA, [facility], lab, RT, psych nurse, marriage and family social worker, shade bander, teacher, traffic control officer, leather case finisher)? Give summary @ -[No] Was smoking cessation discussed for >3mins.? @ -[No] Was critical care preformed (if so, how long)? @ -[No] Were there social determinants of health that impacted care today? How? (Homelessness, low income, unemployed, alcoholism, drug addiction, transportation, low edu. Level, literacy, decrease access to med. care, [facility], rehab)? @ -[No] Was there de-escalation of care discussed even if they declined (Discuss DNR or withdrawal of care, Hospice)? DNR status @ -[No] What co-morbidities impacted this encounter? (DM, HTN, Smoking, COPD, CAD, Cancer, CVA, ARF, Chemo, Hep., AIDS, mental health diagnosis, sleep apnea, morbid obesity)? @ -[None] Was patient admitted / discharged? Hospital course, mention meds given and route, prescriptions, significant lab abnormalities, going to OR and other pertinent info. @ -58 year-old female with pelvic pain. Patient's arrival her vitals are within normal limits. Examination reveals suprapubic pain to palpation. Pelvic examination reveals uterine tenderness and vaginal discharge. Undiagnosed new problem with uncertain prognosis? @ -[No] Drug Therapy requiring intensive monitoring for toxicity (Heparin, Nitro, Insulin, Cardizem)? @ -[No] Were any procedures done? @ -[No] Diagnosis/symptom? @ -[default] Acute, or Chronic, or Acute on Chronic? @ -[default] Uncomplicated (without systemic symptoms) or Complicated (systemic symptoms)? @ -[default] Side effects of treatment? @ -[No] Exacerbation, Progression, or Severe Exacerbation? @ -[No] Poses a threat to life or bodily function? How? (Chest pain, USA, IA, pneumonia, PE, COPD, DKA, ARF, appy, cholecystitis, CVA, Diverticulitis, Homicidal, Suicidal, threat to staff... and all critical care pts) @ -[No] (Stieler,Marlene) - Lab Data Lab Results 05/13/24 Range/Units 19:10 Urine Color Colorless Urine Appearance Clear (Clear) Urine pH 5.5 (5.0-8.0) Ur Specific [place] 1.007 (1.001-1.035) Urine Protein Negative (Negative) Urine Glucose (UA) Negative (Negative) Urine Ketones Negative (Negative) Urine Blood Negative (Negative) Urine Nitrite Negative (Negative) Urine Bilirubin Negative (Negative) Urine Urobilinogen <2.0 (<2.0) mg/dL Ur Leukocyte Esterase Small H (Negative) Urine WBC 1 (0-5) /hpf Ur Squamous Epith Cells 2 (0-4) /hpf Urine Mucus Rare H (None) /hpf Disposition <Yessi Clark - Last Filed: 05/13/24 20:42> Is patient prescribed a controlled substance at d/c from ED?: No Time of Disposition: 00:29 <Marlene Hickman - Last Filed: 05/14/24 00:29> Clinical Impression: Pelvic pain, Bacterial vaginal infection Disposition: HOME SELF-CARE Condition: Good Instructions (If sedation given, give patient instructions): Bacterial Vaginosis (ED) Additional Instructions: Complete full dose of medication as prescribed. Recommend that you schedule appointment with occupational therapist aide next week for further evaluation. Return to the emergency department for any new or worsening symptoms. Prescriptions: metroNIDAZOLE [Flagyl] 500 mg PO BID #14 tab Referrals: Marzena Mclaughlin MD [Primary Care Provider] - 1-2 days
--- NOTE | 2024-05-14 00:19 | US ---
EXAM: US Retroperitoneal Limited, Renal CLINICAL HISTORY: suprapubic pain, hematuria, dysuria TECHNIQUE: Real-time limited ultrasound of the retroperitoneum with image documentation. COMPARISON: CT abdomen and pelvis without contrast dated 02/27/2023 FINDINGS: Right kidney: Unremarkable. No stones. No solid mass. No hydronephrosis. Left kidney: The left kidney measures 11.1 x 4.9 x 4.7 cm. The left kidney measures 11.3 x 4.6 x 4.6 cm. Incidental left extrarenal pelvis measuring 1.7 cm in diameter, as noted on the previous CT examination. No calyceal dilatation to suggest hydronephrosis. No stones. Bladder: The bladder is moderately distended without wall abnormalities or calcifications. The ureteral jets are not identified. IMPRESSION: The kidneys are sonographically unremarkable. No hydronephrosis or nephrolithiasis. Incidental left extrarenal pelviectasis, stable from the previous CT examination; a presumed normal variation.
[2024-05-14] MEDS: metroNIDAZOLE 500 MG TAB PO STA (00:37)
[2024-05-14 01:10] VITALS: BP 145/99; PULSE 84; RESP 16
== END 2024-05-14 01:10 | disposition home or self-care (01) ==
LOC: EC 18:50
DX: R10.2 Pelvic and perineal pain (principal); N76.0 Acute vaginitis; Z88.0 Allergy status to penicillin; Z88.6 Allergy status to analgesic agent; Z88.8 Allergy status to other drugs, medicaments and biological substances; Z88.5 Allergy status to narcotic agent
CPT/HCPCS: 76770; 81001; 99284

== ENCOUNTER → 2024-08-28 | Outpatient (CLI) | payer OTHER ==
--- NOTE | 2024-08-31 15:56 | MM ---
Reason for Exam: Screening (asymptomatic). Last mammogram was performed 1 year(s) and 5 month(s) ago. Patient History: Menarche at age 15. First Full-Term at age 20. 08/26/2019, US discontinued breast core RT on the right side. Risk Values: Maria G 5 year model risk: 0.6%. NCI Lifetime model risk: 3.6%. Prior Study Comparison: 05/23/2018 Left Diagnostic Mammogram, [facility]. 08/01/2019 Bilateral Diagnostic Mammogram, [facility]. 03/20/2023 Bilateral MG screening mammo w CAD, [facility]. Tissue Density: The breasts are heterogeneously dense, which may obscure small masses. Findings: Analyzed By CAD. The pattern is symmetrical. No significant interval change evident. No suspicious groups of microcalcifications, spiculated or lobular masses, architectural distortion or other secondary signs of malignancy are mammographically apparent. Overall Assessment: Benign, BI-RAD 2 Management: Screening Mammogram of both breasts in 1 year. A negative mammogram report should not preclude additional follow up of suspicious palpable abnormalities. Patient should continue monthly self breast exam. A clinical breast exam by your physician is recommended on an annual basis and results should be correlated with mammographic findings. Note on Maria G scores and lifetime risk: 1. A Maria G score greater than 3% is considered moderate risk. If this is the case, consider specialist referral to assess eligibility for a risk reducing agent. 2. If overall lifetime risk for the development of breast cancer is 20% or higher, the patient may qualify for future screening with alternating mammogram and breast MRI. [facility], , 08/31/2024 3:53 PM. Electronically signed and approved by: Rodriguez Negro D.O. Radiologis
== END | disposition home or self-care (01) ==
LOC: RADMAMWWP 09:09
PROVIDERS: ATTEND Family Medicine
DX: Z12.31 Encounter for screening mammogram for malignant neoplasm of breast (principal); R92.333 Mammographic heterogeneous density, bilateral breasts
CPT/HCPCS: 77063; 77067